=== PATIENT | male | born 1950 | race Caucasian/White ===

== ENCOUNTER 2021-05-27 07:04 | Inpatient (IN) ==
[2021-05-27] MEDS ORDERED: 0.9 % SODIUM CHLORIDE 1,000 ML IV ONE (07:13)
[2021-05-27] MEDS ORDERED: ONDANSETRON 4 MG ODT TABLET SL ONE (07:13)
--- NOTE | 2021-05-27 07:19 | Emergency Department Note ---
Fall HPI General Chief Complaint: Fall Stated Complaint: right hip pain Time Seen by Provider: 05/27/21 07:09 Source: patient, family ( @ BS), EMS, RN notes reviewed and old records reviewed Mode of arrival: EMS Limitations: no limitations History of Present Illness HPI Narrative: Narrative: 71-year-old male describes a mechanical trip and fall when he got up this morning falling onto his right side with right-sided hip pain unable to ambulate. Unable to bear weight came in via EMS patient denies preceding illness denies hitting his head denies any headache neck pain chest pain shortness of breath abdominal pain bowel or bladder changes loss of bowel or bladder control. MD Complaint: fall Onset (ago): hour(s) (1) Fall From: standing Fall Witnessed: yes, by family Place Fall Occurred: home Loss of Consciousness: none Prolonged Down Time?: no Symptoms Prior to Fall: none Context: tripped/slipped Location of injury: other (R Hip) Severity: severe Quality: aching Associated symptoms (after fall): Reports unable to walk; Denies headache, neck pain, numbness, weakness, chest pain, shortness of breath, abdominal pain, hematuria, lightheaded, vertigo or confusion Related Data Home Medications Medication Instructions Recorded Confirmed alendronate 70 mg tablet 70 mg PO QWEEK 12/07/17 05/27/21 cholecalciferol (vitamin D3) 50 2,000 unit PO BID cap 12/07/17 05/27/21 mcg (2,000 unit) capsule fenofibrate nanocrystallized 145 145 mg PO QDAY 12/07/17 05/27/21 mg tablet glucosamine HCl 750 mg tablet 750 mg PO BID 12/07/17 05/27/21 hydrochlorothiazide 25 mg tablet 25 mg PO QAM 12/07/17 05/27/21 lisinopril 10 mg tablet 10 mg PO QDAY 12/07/17 05/27/21 multivitamin 2 tab PO DAILY 12/07/17 05/27/21 omega-3 fatty acids [Fish Oil See Rx Instructions PO .COMPLEX 12/07/17 05/27/21 Concentrate] omeprazole 20 mg capsule,delayed 20 mg PO QDAY 12/07/17 05/27/21 release [] 40 mg PO QDAY 08/17/18 05/27/21 methotrexate sodium 2.5 mg tablet 20 mg PO QWEEK tab 06/28/19 05/27/21 tamsulosin 0.4 mg capsule 0.4 mg PO QHS 12/21/19 05/27/21 methocarbamol 750 mg tablet 750 mg PO Q8H PRN 10/17/20 05/27/21 metoprolol succinate 25 mg 12.5 mg PO QDAY 10/17/20 05/27/21 tablet,extended release 24 hr prasterone (dhea) 50 mg tablet 100 mg PO QDAY tab 10/17/20 05/27/21 naproxen 500 mg tablet 1,000 mg PO BID tab 02/27/21 05/27/21 leflunomide 20 mg tablet 20 mg PO QDAY 05/27/21 05/27/21 Previous Rx's Medication Instructions Recorded etanercept 50 mg/mL (1 mL) 50 mg SUB-Q QWEEK #3.92 ml 12/08/17 subcutaneous syringe (Enbrel) folic acid 1 mg tablet 1 mg PO QDAY #30 tab 10/12/18 Allergies Allergy/AdvReac Type Severity Reaction Status Date / Time capsaicin Allergy Unknown Unknown Verified 05/27/21 07:16 Review of Systems ROS ROS Narrative: Narrative: All systems ED: reviewed and negative except as stated. PFSH Narrative Patient History Narrative: Narrative: Medical/Surgical/Family History All Active Problems (Updated 05/27/21 @ 08:17 by Marques Davidson MD) Foot pain (Chronic) Metatarsal fracture (Chronic) Psoriatic arthritis (Acute) Psoriasis (Chronic) Joint pain (Chronic) Joint swelling (Chronic) Obesity (Chronic) Impacted cerumen of left ear (Chronic) Long-term use of high-risk medication (Acute) Osteopenia (Chronic) Nondisplaced fracture of fourth metatarsal bone of right foot with routine healing (Chronic) Nondisplaced fracture of third metatarsal bone of right foot with routine healing (Chronic) Stress fracture of right foot with delayed healing (Chronic) Nondisplaced fracture of fourth metatarsal bone, right foot, initial encounter for closed fracture (Chronic) Hypertension (Chronic) Weight loss (Chronic) Lichen simplex chronicus (Chronic) Obstructive sleep apnea (Chronic) Tinnitus (Chronic) Psoriasis with arthropathy (Acute) Polyarthralgia (Acute) Neck pain (Acute) Left shoulder pain (Acute) Elevated SGOT (AST) (Acute) Low back pain potentially associated with spinal stenosis (Chronic) Hip pain, bilateral (Acute) Osteoarthritis (Acute) Urinary hesitancy (Acute) History of recent surgery (Acute) Femur fracture, right (Acute) Medical History Elevated SGOT (AST) Hip pain, bilateral Hypertension Impacted cerumen of left ear Joint pain Joint swelling Left shoulder pain Lichen simplex chronicus Long-term use of high-risk medication Low back pain potentially associated with spinal stenosis Neck pain Nondisplaced fracture of fourth metatarsal bone of right foot with routine healing Nondisplaced fracture of fourth metatarsal bone, right foot, initial encounter for closed fracture Nondisplaced fracture of third metatarsal bone of right foot with routine healing Obesity Obstructive sleep apnea Osteoarthritis Osteopenia Polyarthralgia Psoriasis Psoriasis with arthropathy Psoriatic arthritis Stress fracture of right foot with delayed healing Tinnitus Urinary hesitancy Weight loss Surgical History History of appendectomy History of arthroscopy of knee right History of recent surgery History of surgery Screw right Fifth Metatarsal 2017 Hx of vasectomy Family History Other No pertinent family history Social History Smoking Status: Former smoker Alcohol Intake Frequency: 0-2 drinks per day Exam Narrative Narrative: Narrative: General Limitations: no limitations General appearance: Present alert and in no apparent distress Head Head: Present atraumatic and normocephalic Eye Eye: Present normal appearance, PERRL and EOMI ENT ENT: Present normal exam and mucous membranes moist Neck Neck: Present normal inspection and full ROM Chest Chest: Present normal inspection; Absent tenderness Respiratory Respiratory: Present normal lung sounds bilaterally; Absent respiratory distress Cardiovascular Cardiovascular: Present regular rate and normal rhythm; Absent systolic murmur Adbominal Abdominal: Present soft and normal bowel sounds; Absent distention, tenderness, guarding, rebound or rigidity Extremities Extremities: Present normal capillary refill and other (R Hip TTP & with movemen t, externally rotated.); Absent full ROM, tenderness, pedal edema or pretibial edema Back Back: Present normal inspection; Absent CVA tenderness (R) or CVA tenderness (L) Neurological Neurological: Present alert and oriented X3; Absent normal gait or motor sensory deficit Psychiatric Psychiatric: Present normal affect and normal mood Skin Skin: Present warm (WNL); Absent rash Course Vital Signs Vital signs: Vital Signs Temperature 99.3 F H 05/27/21 07:11 Pulse Rate 82 05/27/21 07:11 Respiratory Rate 16 05/27/21 07:11 Blood Pressure 129/75 05/27/21 07:11 Pulse Oximetry (%) 97 05/27/21 07:11 Temperature 99.3 F H 05/27/21 07:11 Pulse Rate 77 05/27/21 08:05 Respiratory Rate 16 05/27/21 07:11 Blood Pressure 91/56 05/27/21 08:05 Pulse Oximetry (%) 95 05/27/21 08:05 MDM MDM Narrative Medical decision making narrative: Narrative: 71-year-old male with proximal femur fracture patient has received IV fluids and pain relief patient has a proximal femur fracture on x-ray discussed with patient Dr. Jama of orthopedic surgery who graciously agreed to patient in the emergency department page is out to Dr. Agustin hospitalist for admission Differential Diagnosis Differential Diagnosis: Fx, Dislocation,sprain. Medical Records Medical records reviewed: Yes I reviewed the patient's medical records. Lab Data Lab results reviewed: Yes I reviewed the patient's lab results. Result diagrams: 05/27/21 07:23 05/27/21 07:23 Labs: Lab Results 05/27/21 05/27/21 05/27/21 Range/Units 07:23 07:23 07:23 WBC 9.0 (4.5-11.0) K/mcL RBC 4.55 L (4.63-6.08) M/mcL Hgb 13.3 L (13.7-17.5) g/dL Hct 40.9 (40.1-51.0) % MCV 89.9 (80.0-100.0) fL MCH 29.2 (26.0-34.0) pg MCHC 32.5 (31.0-36.0) g/dL RDW 16.0 H (11.5-14.5) % Plt Count 241 (140-440) K/mcL MPV 11.8 H (7.4-10.4) fL Neut % (Auto) 59.4 (38.0-78.0) % Lymph % (Auto) 23.9 (15.5-49.0) % [place] % (Auto) 13.1 H (1.0-12.0) % Eos % (Auto) 2.7 (0.0-7.0) % Baso % (Auto) 0.9 (0.0-2.0) % Lymph # (Auto) 2.15 (1.50-4.80) K/mcL [place] # (Auto) 1.18 H (0.10-0.90) K/mcL Eos # (Auto) 0.24 (0.00-0.70) K/mcL Baso # (Auto) 0.08 (0.00-0.30) K/mcL Absolute Neutrophils 5.34 (1.80-8.00) K/mcL PT 14.0 (11.9-14.5) sec INR 1.0 (0.9-1.1) Sodium 140 (133-145) mmol/L Potassium 4.2 (3.3-5.1) mmol/L Chloride 104 (96-108) mmol/L Carbon Dioxide 24 (22-30) mmol/L Anion Gap 12.0 (8.0-16.0) BUN 15 (8-23) mg/dL Creatinine 0.8 (0.7-1.2) mg/dL GFR Calculation 91 Glucose 105 (70-105) mg/dL Calcium 9.1 (8.6-10.4) mg/dL Total Bilirubin 0.5 (0.1-1.0) mg/dL AST 30 (<40) U/L ALT 23 (<40) U/L Alkaline Phosphatase 53 (39-117) U/L Total Protein 6.2 (5.9-8.4) gm/dL Albumin 3.8 (3.2-5.2) gm/dL Globulin 2.4 (2.2-3.7) gm/dL Albumin/Globulin Ratio 1.6 (1.0-2.3) ED POC Tests ED POC Tests: ZULMA - SARS Antigen Negative Radiology Data Radiology results reviewed: Yes I reviewed the patient's radiology results. Radiology results narrative: Chest x-ray NAD proximal femur fracture on hip x-ray EKG Data EKG #1: EKG attestation: Yes I reviewed and interpreted this EKG. EKG shows normal: sinus rhythm Rate: normal (78) Rhythm: NSR [place]/QRS: normal Heart block present: None ST segment elevation in: None ST segment depression in: None Q waves: None T wave inversions noted in: None Hyperacute T waves: None QTc: normal QRS morphology: Present normal Interpretation: normal EKG Pulse Oximetry Data Pulse Ox %: 95 Interpretation: 95 % WNL. Discharge Plan Patient/Caregiver Discharge Instructions Pt seen by PROGRAM REP/PA only: No Clinical Impression: Femur fracture, right Qualifiers: Encounter type: initial encounter Fracture type: closed Fracture morphology: spiral Fracture alignment: displaced Patient Disposition: Xfer As Inpt ([facility]) Condition: Fair Follow up with: Johanna Strong ARNP [Primary Care Provider] - Prescriptions: No Action alendronate 70 mg tablet 70 mg PO QWEEK 0RF omega-3 fatty acids See Rx Instructions PO .COMPLEX 0RF Label Comments: PO qday, 4 days a week Rx Instructions: PO qday, 4 days a week multivitamin 2 tab PO DAILY 0RF lisinopril 10 mg tablet 10 mg PO QDAY 0RF hydrochlorothiazide 25 mg tablet 25 mg PO QAM 0RF glucosamine HCl 750 mg tablet 750 mg PO BID 0RF cholecalciferol (vitamin D3) 2,000 unit capsule 2,000 unit PO BID 0RF fenofibrate nanocrystallized 145 mg tablet 145 mg PO QDAY 0RF omeprazole 20 mg capsule,delayed release(DR/EC) 20 mg PO QDAY 0RF naproxen 500 mg tablet 1,000 mg PO BID 0RF etanercept [Enbrel] 50 mg/mL (0.98 mL) syringe 50 mg SUB-Q QWEEK Qty: 3.92 0RF folic acid 1 mg tablet 1 mg PO QDAY Qty: 30 3RF methotrexate sodium 2.5 mg tablet 20 mg PO QWEEK 0RF tamsulosin 0.4 mg capsule 0.4 mg PO QHS 0RF metoprolol succinate 25 mg tablet extended release 24 hr 12.5 mg PO QDAY 0RF methocarbamol 750 mg tablet 750 mg PO Q8H PRN (Reason: Pain) 0RF prasterone (dhea) 50 mg tablet 100 mg PO QDAY 0RF atorvastatin 10 mg tablet 10 mg tablet 40 mg PO QDAY 0RF leflunomide 20 mg Tablet 20 mg PO QDAY 0RF
[2021-05-27] MEDS ORDERED: ONDANSETRON 4 MG/2 ML VIAL IV ONE (07:22)
[2021-05-27] MEDS: morphine 2 MG/ML VIAL IV PRN ×2 (07:23→08:01)
[2021-05-27] MEDS ORDERED: ONDANSETRON 4 MG/2 ML VIAL ONE ×2 (07:27→18:13)
[2021-05-27 07:53] LABS: Basophils # (Auto) 0.08 K/mcL (0.00-0.30); Basophils % (Auto) 0.9 % (0.0-2.0); Eosinophils # (Auto) 0.24 K/mcL (0.00-0.70); Eosinophils % (Auto) 2.7 % (0.0-7.0); Hematocrit 40.9 % (40.1-51.0); Hemoglobin 13.3 g/dL (13.7-17.5); Lymphocytes # (Auto) 2.15 K/mcL (1.50-4.80); Lymphocytes % (Auto) 23.9 % (15.5-49.0); Mean Cell Volume 89.9 fL (80.0-100.0); Mean Corpuscular HGB Conc 32.5 g/dL (31.0-36.0); Mean Platelet Volume 11.8 fL (7.4-10.4); Monocytes # (Auto) 1.18 K/mcL (0.10-0.90); Monocytes % (Auto) 13.1 % (1.0-12.0); Neutrophils % (Auto) 59.4 % (38.0-78.0); Platelet Count 241 K/mcL (140-440); RBC 4.55 M/mcL (4.63-6.08)
[2021-05-27 08:25] LABS: ALT/SGPT 23 U/L (<40); AST/SGOT 30 U/L (<40); Albumin 3.8 gm/dL (3.2-5.2); Albumin/Globulin Ratio 1.6 (1.0-2.3); Alkaline Phosphatase 53 U/L (39-117); Bilirubin,Total 0.5 mg/dL (0.1-1.0); Blood Urea Nitrogen 15 mg/dL (8-23); Calcium 9.1 mg/dL (8.6-10.4); Carbon Dioxide 24 mmol/L (22-30); Chloride 104 mmol/L (96-108); Globulin 2.4 gm/dL (2.2-3.7); Glomerular Filtration Rate 91; Glucose 105 mg/dL (70-105)
--- NOTE | 2021-05-27 08:52 | XRay Report ---
CLINICAL INFORMATION: FALL COMPARISON: 06/28/2019 plain films FINDINGS: Spiral fracture through the subtrochanteric region of the proximal femoral diaphysis appreciated. Distal fragment is displaced one shaft width medially. Minimal angulation deformity. Minimal degenerative change seen in both absence of chondrocalcinosis the femoral head cartilages. SI joints are normal. Calcific plaque present in the common femoral arteries IMPRESSION: Displaced spiral fracture of the subtrochanteric region of the proximal right femoral diaphysis. Interpreted and Authenticated by: Willard Beth 05/27/21
--- NOTE | 2021-05-27 08:55 | XRay Report ---
CLINICAL INFORMATION: Trauma-fall COMPARISON: 10/17/2020 TECHNIQUE: Portable FINDINGS: The heart size, mediastinum and pulmonary vessels are unremarkable. The lungs are clear. There are no effusions. The bones and soft tissues are within normal limits. IMPRESSION: Normal chest. Interpreted and Authenticated by: Willard Beth 05/27/21
[2021-05-27] MEDS: HYDROmorphone 0.5 MG/0.5 ML SYRINGE IV PRN ×4 (09:26→15:17)
--- NOTE | 2021-05-27 12:07 | Internal Med History&Physical ---
HPI History of Present Illness Patient information: Note initiated : 05/27/21 at 12:05 pm Service Date, if different from initiated Date: [] Patient: Mal Fiore a 71 y/o M admitted on for Rt Hip Pain. Chief Complaint: [] History of present illness: Mr. Fiore is a 71 year old M Patient with a history of right hip osteoarthritis in the process of getting a hip replacement. Got up to go the bathroom had pain in the leg buckled fell on his right hip with the result fracture. Dr. Jama contacted. Review of Systems: Positives as above. Denies headache/fever/chills/nausea/vomiting/chest or abdominal pain/cough/dyspnea/diarrhea. Remaining 10 point review of system reviewed negative PFSH PFSH All Active Problems (Updated 05/27/21 @ 08:17 by Marques Davidson MD) Foot pain (Chronic) Metatarsal fracture (Chronic) Psoriatic arthritis (Acute) Psoriasis (Chronic) Joint pain (Chronic) Joint swelling (Chronic) Obesity (Chronic) Impacted cerumen of left ear (Chronic) Long-term use of high-risk medication (Acute) Osteopenia (Chronic) Nondisplaced fracture of fourth metatarsal bone of right foot with routine healing (Chronic) Nondisplaced fracture of third metatarsal bone of right foot with routine healing (Chronic) Stress fracture of right foot with delayed healing (Chronic) Nondisplaced fracture of fourth metatarsal bone, right foot, initial encounter for closed fracture (Chronic) Hypertension (Chronic) Weight loss (Chronic) Lichen simplex chronicus (Chronic) Obstructive sleep apnea (Chronic) Tinnitus (Chronic) Psoriasis with arthropathy (Acute) Polyarthralgia (Acute) Neck pain (Acute) Left shoulder pain (Acute) Elevated SGOT (AST) (Acute) Low back pain potentially associated with spinal stenosis (Chronic) Hip pain, bilateral (Acute) Osteoarthritis (Acute) Urinary hesitancy (Acute) History of recent surgery (Acute) Femur fracture, right (Acute) Medical History Elevated SGOT (AST) Hip pain, bilateral Hypertension Impacted cerumen of left ear Joint pain Joint swelling Left shoulder pain Lichen simplex chronicus Long-term use of high-risk medication Low back pain potentially associated with spinal stenosis Neck pain Nondisplaced fracture of fourth metatarsal bone of right foot with routine healing Nondisplaced fracture of fourth metatarsal bone, right foot, initial encounter for closed fracture Nondisplaced fracture of third metatarsal bone of right foot with routine healing Obesity Obstructive sleep apnea Osteoarthritis Osteopenia Polyarthralgia Psoriasis Psoriasis with arthropathy Psoriatic arthritis Stress fracture of right foot with delayed healing Tinnitus Urinary hesitancy Weight loss Surgical History History of appendectomy History of arthroscopy of knee right History of recent surgery History of surgery Screw right Fifth Metatarsal 2017 Hx of vasectomy Family History Other No pertinent family history Social History marital status: occupational status: retired alcohol intake frequency: 0-2 drinks per day MEDS/ALLERGIES Home Medications and Allergies Home Medications Medication Instructions Recorded Confirmed Type alendronate 70 mg tablet 70 mg PO QWEEK 12/07/17 05/27/21 History cholecalciferol (vitamin D3) 50 2,000 unit PO BID cap 12/07/17 05/27/21 History mcg (2,000 unit) capsule fenofibrate nanocrystallized 145 145 mg PO QDAY 12/07/17 05/27/21 History mg tablet glucosamine HCl 750 mg tablet 750 mg PO BID 12/07/17 05/27/21 History hydrochlorothiazide 25 mg tablet 25 mg PO QAM 12/07/17 05/27/21 History lisinopril 10 mg tablet 10 mg PO QDAY 12/07/17 05/27/21 History multivitamin 2 tab PO DAILY 12/07/17 05/27/21 History omega-3 fatty acids [Fish Oil See Rx Instructions PO .COMPLEX 12/07/17 05/27/21 History Concentrate] omeprazole 20 mg capsule,delayed 20 mg PO QDAY 12/07/17 05/27/21 History release etanercept 50 mg/mL (1 mL) 50 mg SUB-Q QWEEK #3.92 ml 12/08/17 05/27/21 Rx subcutaneous syringe (Enbrel) [] 40 mg PO QDAY 08/17/18 05/27/21 History folic acid 1 mg tablet 1 mg PO QDAY #30 tab 10/12/18 05/27/21 Rx methotrexate sodium 2.5 mg tablet 20 mg PO QWEEK tab 06/28/19 05/27/21 History tamsulosin 0.4 mg capsule 0.4 mg PO QHS 12/21/19 05/27/21 History methocarbamol 750 mg tablet 750 mg PO Q8H PRN 10/17/20 05/27/21 History metoprolol succinate 25 mg 12.5 mg PO QDAY 10/17/20 05/27/21 History tablet,extended release 24 hr prasterone (dhea) 50 mg tablet 100 mg PO QDAY tab 10/17/20 05/27/21 History naproxen 500 mg tablet 1,000 mg PO BID tab 02/27/21 05/27/21 History leflunomide 20 mg tablet 20 mg PO QDAY 05/27/21 05/27/21 History Allergies Allergy/AdvReac Type Severity Reaction Status Date / Time capsaicin Allergy Unknown Unknown Verified 05/27/21 07:16 EXAM Constitutional Vitals: Temp Pulse Resp BP Pulse Ox 99.3 F H 76 16 110/65 96 05/27/21 07:11 05/27/21 11:47 05/27/21 07:11 05/27/21 11:46 05/27/21 11:47 Exam: General: Alert, Awake, No acute Distress, obese Eyes/N/T: EOMI, PERRL, Head/Neck: neck supple, normocephalic atraumatic CV: RRR, No murmurs, normal s1/s2 Pulm: Clear b/l, no wheezing/rhonchi/rales Abd: soft, nontender, +BS x4 Ext: no clubbing/cyanosis/edema Neuro: Alert, no focal deficits, moves all extremities, CN 2-12 grossly intact, sensations intact b/l upper/lower Skin: warm/dry DATA Data Completed and Pending Labs: Labs from last 24 hours 05/27/21 05/27/21 05/27/21 07:23 07:23 07:23 WBC 9.0 RBC 4.55 L Hgb 13.3 L Hct 40.9 MCV 89.9 MCH 29.2 MCHC 32.5 RDW 16.0 H Plt Count 241 MPV 11.8 H Neut % (Auto) 59.4 Lymph % (Auto) 23.9 [place] % (Auto) 13.1 H Eos % (Auto) 2.7 Baso % (Auto) 0.9 Lymph # (Auto) 2.15 [place] # (Auto) 1.18 H Eos # (Auto) 0.24 Baso # (Auto) 0.08 Absolute Neutrophils 5.34 PT 14.0 INR 1.0 Sodium 140 Potassium 4.2 Chloride 104 Carbon Dioxide 24 Anion Gap 12.0 BUN 15 Creatinine 0.8 GFR Calculation 91 Glucose 105 Calcium 9.1 Total Bilirubin 0.5 AST 30 ALT 23 Alkaline Phosphatase 53 Total Protein 6.2 Albumin 3.8 Globulin 2.4 Albumin/Globulin Ratio 1.6 A/P Narrative A/P Narrative: A: *Right hip fracture: *Psoriatic arthritis: On etanercept/methotrexate *HTN: On HCTZ/BB/ACEI *GERD: *Obesity: * P: -Dr. Jama for surgery -Continue home medications -PT/OT -assistant real estate manager for placement needs -ppx: Postop per Ortho full code Time Spent With Patient Time: Total time spent is greater than 50% in coordination of care (as documented) at patient's floor/unit and/or counseling patient:
[2021-05-27] MEDS ORDERED: ACETAMINOPHEN 325 MG TABLET PO PRN (14:27)
[2021-05-27] MEDS ORDERED: morphine 4 MG/ML VIAL IV PRN (14:27)
[2021-05-27] MEDS ORDERED: HYDROcodone/APAP 5/325MG TABLET PO PRN (14:27)
[2021-05-27] MEDS ORDERED: MAGNESIUM SULFATE 2 GM/50 ML BAG IV PRN (14:27)
[2021-05-27] MEDS ORDERED: SENNOSIDES 1 TABLET PO PRN (14:27)
[2021-05-27] MEDS ORDERED: ONDANSETRON 4 MG/2 ML VIAL IV PRN ×2 (14:27→20:31)
[2021-05-27] MEDS ORDERED: POLYETHYLENE GLYCOL 3350 17 GM PACKET PO PRN ×2 (14:27→20:13)
[2021-05-27] MEDS ORDERED: IPRATROPIUM/ALBUTEROL 3 ML AMPUL.NEB NEB PRN ×2 (14:27→20:31)
[2021-05-27] MEDS ORDERED: POTASSIUM CHLORIDE 20 MEQ TABLET PO PRN ×2 (14:27)
[2021-05-27] MEDS ORDERED: POTASSIUM CHLORIDE 40 MEQ in DEXTROSE 5% IN WATER 500 ML IV PRN (14:27)
[2021-05-27] MEDS ORDERED: METHOCARBAMOL 750 MG TABLET PO PRN (14:27)
[2021-05-27] MEDS: 0.9 % SODIUM CHLORIDE 10 ML SYRINGE IV SCH (15:19)
--- NOTE | 2021-05-27 17:06 | Consultation ---
DATE OF CONSULTATION: 05/27/2021 INDICATIONS: This is a 71-year-old male. CHIEF COMPLAINT: Right proximal femur fracture. HISTORY OF PRESENT ILLNESS: The patient has had some ongoing hip pain secondary to arthrosis. He has had pain, which resulted in his leg buckling. He sustained a fall, had immediate pain and was unable to bear weight. He presented to the emergency room and radiographs demonstrated rupture of his subtrochanteric region. We are now called for further evaluation and management. PAST MEDICAL HISTORY: His past medical history is significant for polyarthralgia secondary to psoriatic arthritis. He has chronic hip pain with early arthrosis. He has hypertension. PAST SURGICAL HISTORY: His past surgical history is significant for a previous knee arthroscopy, appendectomy and foot fracture. MEDICATIONS: 1. Fosamax. 2. Vitamin D. 3. Glucosamine. 4. Hydrochlorothiazide/lisinopril. 5. Folic acid. 6. Methotrexate. 7. Metoprolol. ALLERGIES: CAPSAICIN. REVIEW OF SYSTEMS: He has generally been healthy without any acute changes in past medical history. PHYSICAL EXAMINATION: GENERAL: He is awake and alert. He is resting comfortably. HEAD: Normocephalic, atraumatic. EYES: PERRLA. Conjunctivae clear. ENT: Within normal limits. NECK: Supple without pain on range of motion. HEART: Regular. LUNGS: Clear. ABDOMEN: Benign. EXTREMITIES: His right lower extremity was carefully positioned. It is somewhat shortened. He does have marked pain with any range of motion. He seems to be grossly without neurovascular deficit. IMAGING: His radiographs demonstrate a displaced femur fracture. This is a subtrochanteric fracture of the femur. IMPRESSION: Subtrochanteric femur fracture. PLAN: We will proceed with an intramedullary rodding. The procedure, the surgical risks, complications, and limitations were discussed. The patient understands these well and wished to proceed. GDD:cee Job ID: [id number] Doc ID: [id number] Ted Jama MD
[2021-05-27] MEDS ORDERED: ceFAZolin 2 GM in DEXTROSE 5% IN WATER 50 ML IV SCH ×2 (17:45→20:15)
[2021-05-27] MEDS ORDERED: TRANEXAMIC ACID 1,000 MG/10 ML VIAL ONE ×2 (18:13→20:37)
[2021-05-27] MEDS ORDERED: fentaNYL 100 MCG/2 ML VIAL IV ONE (18:13)
[2021-05-27] MEDS ORDERED: GLYCOPYRROLATE 0.2 MG/ML VIAL IV ONE (18:13)
[2021-05-27] MEDS ORDERED: PROPOFOL 200 MG/20 ML VIAL IV ONE (18:13)
[2021-05-27] MEDS ORDERED: MAGNESIUM SULFATE 2 GM/50 ML BAG IV ONE (18:13)
[2021-05-27] MEDS ORDERED: DEXAMETHASONE 10 MG/ML VIAL ONE (18:13)
[2021-05-27] MEDS ORDERED: MIDAZOLAM 2 MG/2 ML VIAL ONE (18:13)
[2021-05-27] MEDS ORDERED: LIDOCAINE HCL/PF 100 MG/5 ML SYRINGE IV ONE (18:13)
[2021-05-27] MEDS ORDERED: KETAMINE 50 MG/ML Syringe (ANEST) IV ONE (18:13)
[2021-05-27] MEDS ORDERED: BISACODYL 10 MG SUPP.RECT PR PRN (20:13)
[2021-05-27] MEDS ORDERED: FLEETS ADULT ENEMA PR PRN (20:13)
[2021-05-27] MEDS ORDERED: BENZOCAINE/MENTHOL 1 LOZENGE PO PRN ×2 (20:13→20:31)
[2021-05-27] MEDS ORDERED: MAGNESIUM HYDROXIDE 30 ML ORAL.SUSP PO PRN (20:13)
--- NOTE | 2021-05-27 20:18 | Brief Operative Note ---
Brief Operative Note Date of procedure: 05/27/21 Pre-op diagnosis: R hip fracture Procedure: recon michelle alexandra Grafts/Implants: Yes Anesthesia: GETA Complications: none Surgeon: Ted Jama Orchard Pruner: Marv Oh Estimated blood loss (cc): 300 Specimens Removed/Pathology: none sent Condition: stable Disposition: PACU
[2021-05-27] MEDS ORDERED: TRANEXAMIC ACID 1,000 MG/10 ML VIAL IV ONE (20:30)
[2021-05-27] MEDS ORDERED: MEPERIDINE 25 MG/ML VIAL IV PRN (20:31)
[2021-05-27] MEDS ORDERED: LABETALOL 5 MG/ML ML IV PRN (20:31)
[2021-05-27] MEDS ORDERED: HYDROmorphone 0.5 MG/0.5 ML SYRINGE IV PRN (20:31)
[2021-05-27] MEDS ORDERED: METHOCARBAMOL 1,000 MG/10 ML VIAL IV PRN (20:31)
[2021-05-27] MEDS ORDERED: ePHEDrine 50 MG/ML AMPUL IV PRN (20:31)
[2021-05-27] MEDS ORDERED: ACETAMINOPHEN 1,000 MG/100 ML BAG IV ONE (20:31)
[2021-05-27] MEDS ORDERED: LACTATED RINGERS 1,000 ML IV SCH (20:45)
[2021-05-27] MEDS: fentaNYL 100 MCG/2 ML VIAL IV PRN ×2 (20:57→21:00)
[2021-05-27] MEDS ORDERED: ASPIRIN 325 MG ENTERIC COATED TABLET PO SCH (21:00)
[2021-05-27] MEDS ORDERED: DOCUSATE SODIUM 100 MG CAPSULE PO SCH (21:00)
[2021-05-27] MEDS ORDERED: METHOTREXATE SODIUM 2.5 MG TABLET PO SCH (21:00)
[2021-05-27] MEDS: SENNOSIDES 1 TABLET PO SCH (23:45)
[2021-05-27] MEDS: DOCUSATE SODIUM 100 MG CAPSULE PO SCH (23:46)
[2021-05-27] MEDS: TAMSULOSIN 0.4 MG CAPSULE PO SCH (23:47)
[2021-05-27] MEDS: ENOXAPARIN 30 MG/0.3 ML SYRINGE SQ SCH (23:47)
[2021-05-27] MEDS: LACTATED RINGERS 1,000 ML IV SCH ×2 (23:54→23:55)
--- NOTE | 2021-05-28 01:22 | XRay Report ---
CLINICAL INFORMATION: post op femur fx COMPARISON: Preoperative films 05/27/2021 FINDINGS: Oblique subtrochanteric fracture of the proximal femoral diaphysis is been reduced to anatomic alignment transfixed by IM michelle and screws. Severe patellofemoral and tibiofemoral degeneration noted. Right hip unremarkable. Soft tissues over the surgical site seen. IMPRESSION: ORIF oblique subtrochanteric fracture right femoral diaphysis has anatomic alignment. 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
--- NOTE | 2021-05-28 01:29 | XRay Report ---
CLINICAL INFORMATION: hip pinning COMPARISON: None. FINDINGS: Digital images were obtained during fluoroscopy in the OR. Total fluoroscopy time 2.3 minutes. Images show oblique subtrochanteric fracture the proximal femur reduced to anatomic alignment and transfixed by a michelle and screws. Severe tibiofemoral degeneration noted. IMPRESSION: ORIF subtrochanteric fracture proximal right femur. Anatomic alignment Interpreted and Authenticated by: Willard Beth 05/28/21
[2021-05-28] MEDS: 0.9 % SODIUM CHLORIDE 10 ML SYRINGE IV SCH ×4 (01:41→22:27)
[2021-05-28] MEDS: ceFAZolin 1 GM VIAL IV SCH ×2 (02:27→09:08)
[2021-05-28] MEDS: HYDROmorphone 0.5 MG/0.5 ML SYRINGE IV PRN (05:56)
--- NOTE | 2021-05-28 07:05 | Orthopedic Progress Note ---
SUBJECTIVE Subjective Patient information: Note initiated : 05/28/21 at 7:01 am Service Date, if different from initiated Date: [] Patient: Mal Fiore 71 y/o M admitted on 05/27/21 for Rt Hip Pain. Chief Complaint: [S/P ORIF OF RIGHT HIP FX] PATIENT IS DOING WELL AND PAIN IS WELL CONTROLLED. NO PARTICULAR COMPLAINTS. HE DENIES ANY LOWER EXTREMITY CALF TENDERNESS, SOA, CHEST PAIN. Principal diagnosis: RT HIP FX Constitutional Vitals: Vital Signs Temp Pulse Resp BP Pulse Ox 97.0 F 81 20 124/73 93 05/28/21 03:00 05/28/21 03:00 05/28/21 03:00 05/28/21 03:00 05/28/21 03:00 Period Temp Pulse Resp BP Sys/Ayala Pulse Ox Last 24 Hr 96.0 F-99.3 F 69-95 11- 85-160/42-96 83-97 Intake and Output 05/27/21 05/28/21 05/28/21 21:59 05:59 13:59 Intake Total 1850 600 Output Total 525 1050 Balance 1325 -450 Weight 260 lb 272 lb 11.2 oz Intake & Output: Intake & Output 05/27/21 05/28/21 05/28/21 21:59 05:59 13:59 Intake Total 1850 600 Output Total 525 1050 Balance 1325 -450 Weight 260 lb 272 lb 11.2 oz Intake: IV 150 Ancef 2 gm In Dextrose 5% in 50 Water 50 ml @ 100 mls/hr IV PREOP ALEJANDRA Rx#:[id number] Oral 600 IV - Manual Only 1700 Output: Void Amount 225 1050 Estimated Blood Loss 300 Other: Meal jello Percent of Meal Consumed 100% Feeding Ability Independent Urine Appearance Clear Urine Color Bright Yellow Bright Yellow Urine Odor Normal General appearance: cooperative and no acute distress Extremities Exam Extremities exam: Present calf tenderness (NEGATIVE BILATERALLY), full ROM (DIAZ ITED RLE), Emile's sign (NEGATIVE BILATERALLY) and neurovascular intact Neurological Exam Neurological exam: Present alert and oriented X3 Psychiatric Psychiatric exam: Present normal affect and normal mood OBJ DATA Labs CBC & Chem 7: 05/27/21 07:23 05/27/21 07:23 Labs: Abnormal Lab Results 05/27/21 07:23 RBC 4.55 L Hgb 13.3 L RDW 16.0 H MPV 11.8 H Pershing % (Auto) 13.1 H Pershing # (Auto) 1.18 H Meds: Medications Acetaminophen (Acetaminophen 325 Mg Tablet) 650 mg PO Q6HP PRN; Protocol PRN Reason: Per Pain Protocol/Fever > 101 Hydrocodone Bitart/Acetaminophen (Hydrocodone/Apap 5/325mg Tablet) 1 tab PO Q4HP PRN PRN Reason: PAIN LEVEL 3-6 Albuterol/Ipratropium (Ipratropium/Albuterol 3 Ml Ampul.Neb) 3 ml NEB Q4HP PRN PRN Reason: Shortness Of Breath Aspirin (Aspirin 325 Mg Enteric Coated Tablet) 325 mg PO BID [facility] Last Admin: 05/27/21 23:47 Dose: 325 mg Documented by: Atorvastatin Calcium (Atorvastatin 40 Mg Tablet) 40 mg PO DAILY [facility] Bisacodyl (Bisacodyl 10 Mg Supp.Rect) 10 mg CO Q2-3DAYS PRN PRN Reason: Constipation Cefazolin Sodium (Cefazolin 1 Gm Vial) 2 gm IV Q8H [facility] Stop: 05/28/21 08:01 Last Admin: 05/28/21 02:27 Dose: 2 gm Documented by: Docusate Sodium (Docusate Sodium 100 Mg Capsule) 100 mg PO BID [facility] Last Admin: 05/27/21 23:46 Dose: 100 mg Documented by: Enoxaparin Sodium (Enoxaparin 30 Mg/0.3 Ml Syringe) 30 mg SQ BID [facility] Last Admin: 05/27/21 23:47 Dose: 30 mg Documented by: Fenofibrate (Fenofibrate 43 Mg Capsule) 129 mg PO DAILY [facility] Folic Acid (Folic Acid 1 Mg Tablet) 1 mg PO QDAY [facility] Hydrochlorothiazide (Hydrochlorothiazide 25 Mg Tablet) 25 mg PO QAM [facility] Hydromorphone HCl (Hydromorphone 0.5 Mg/0.5 Ml Syringe) 0.25 - 0.5 mg IV Q2HP PRN; Protocol PRN Reason: Per Pain Protocol Last Admin: 05/28/21 05:56 Dose: 0.25 mg Documented by: Potassium Chloride 40 meq/ (Dextrose) 520 mls @ 130 mls/hr IV UD PRN PRN Reason: Potassium < 3 Magnesium Sulfate (Magnesium Sulfate) 2 gm in 50 mls @ 50 mls/hr IV UD PRN PRN Reason: Magnesium </= 1.6 Leflunomide (Leflunomide 20 Mg Tablet) 20 mg PO DAILY [facility] Lisinopril (Lisinopril 10 Mg Tablet) 10 mg PO QDAY [facility] Magnesium Hydroxide (Magnesium Hydroxide 30 Ml Oral.Susp) 30 ml PO BIDP PRN PRN Reason: Constipation Methocarbamol (Methocarbamol 750 Mg Tablet) 750 mg PO Q6HP PRN PRN Reason: Muscle Spasm Methotrexate (Methotrexate Sodium 2.5 Mg Tablet) 20 mg PO Mo@2100 [facility] Last Admin: 05/27/21 23:49 Dose: 20 mg Documented by: Metoprolol Succinate (Metoprolol Succinate 25 Mg Tab.Xl.24h) 12.5 mg PO QDAY [facility] Omeprazole (Omeprazole 20 Mg Capsule) 20 mg PO ACB [facility] Ondansetron HCl (Ondansetron 4 Mg/2 Ml Vial) 4 mg IV Q4HP PRN PRN Reason: Nausea And Vomiting Oxycodone/Acetaminophen (Oxycodone/Apap 5/325mg Tablet) 0 tab PO Q4HP PRN; Protocol PRN Reason: Per Pain Protocol Polyethylene Glycol (Polyethylene Glycol 3350 17 Gm Packet) 17 gm PO DAILYP PRN PRN Reason: Constipation Polyethylene Glycol (Polyethylene Glycol 3350 17 Gm Packet) 17 gm PO DAILYP PRN PRN Reason: Constipation Potassium Chloride (Potassium Chloride 20 Meq Tablet) 40 meq PO UD PRN PRN Reason: Potssium is 3-3.5 Potassium Chloride (Potassium Chloride 20 Meq Tablet) 40 meq PO UD PRN PRN Reason: Potassium < 3 Senna (Sennosides 1 Tablet) 2 tab PO HS [facility] Last Admin: 05/27/21 23:45 Dose: 2 tab Documented by: Sodium Biphosphate/Sodium Phosphate (Fleets Adult Enema) 1 dose CO Q3-4DAYS PRN PRN Reason: Constipation Sodium Chloride (0.9 % Sodium Chloride 10 Ml Syringe) 10 ml IV Q8 [facility] Last Admin: 05/28/21 06:48 Dose: 10 ml Documented by: Tamsulosin HCl (Tamsulosin 0.4 Mg Capsule) 0.4 mg PO QHS [facility] Last Admin: 05/27/21 23:47 Dose: 0.4 mg Documented by: Throat Lozenges (Benzocaine/Menthol 1 Lozenge) 1 lozenge PO PRN PRN PRN Reason: Sore Throat A/P Assessment and plan (1) Femur fracture, right: Assessment and plan: AMBULATE WITH PT TODAY. TTWB ON RLE. CASE MANAGEMENT CONSULT TO DISCUSS DISCHARGE TO SNF VS HOME IN 1-2 DAYS. WILL F/U WITH [facility] IN 2 WEEKS. SILVER DRESSING OKAY PRIOR TO DISCHARGE. Status: Acute Qualifiers: Encounter type: initial encounter Fracture alignment: displaced Fracture morphology: spiral Fracture type: closed Time Spent With Patient Time: Total time spent is greater than 50% in coordination of care (as documented) at patient's floor/unit and/or counseling patient:
[2021-05-28 07:14] LABS: Hematocrit 37.1 % (40.1-51.0); Hemoglobin 12.3 g/dL (13.7-17.5)
--- NOTE | 2021-05-28 07:52 | Operative Note ---
DATE OF OPERATION: 05/27/2021 PREOPERATIVE DIAGNOSIS: Subtrochanteric femur fracture. POSTOPERATIVE DIAGNOSIS: Subtrochanteric femur fracture. OPERATION PROPOSED: Open reduction and internal fixation of right subtrochanteric femoral shaft fracture. OPERATION PERFORMED: Open reduction and internal fixation of right subtrochanteric femoral shaft fracture. SURGEON: Ted Jama M.D. SERIALS LIBRARIAN: Marv Oh PA-C. This providers expertise and technical skill were required throughout the case. The PA assisted with preoperative coordination, intraoperative retraction, wound closure, and dressing and splint application, as well as postoperative documentation and care coordination. INDICATIONS: This is an elderly gentleman who has a displaced subtrochanteric femur fracture, in need of operative stabilization. OPERATION IN DETAIL: Informed consent was obtained. The patient was taken to the operating room, was provided with appropriate anesthetic and prophylactic antibiotics. He was carefully positioned. An incision was made proximal to the greater trochanter and advanced down through a very robust layer of subcutaneous fat, exposing the fascia overlying the gluteal musculature. I opened the fascia and then spread down to expose the tip of the greater trochanter, which was palpable within my finger. I then entered the tip of the trochanter with a 3.2 mm guidewire, which was advanced into the femoral shaft. The fracture was markedly displaced by deforming forces of the psoas musculature. I then opened the fracture through a lateral incision. I was able to get a Hohmann clamp around the fracture. A very adequate reduction was obtained. I then advanced the guidewire. I entered the canal with an opening reamer. A long guidewire was passed. I sequentially reamed to a 13.5. A 12 x 400 mm intramedullary michelle was applied. Proximal recon screws were placed up into the femoral neck and head x2 and the distal interlocking screw was applied. Wounds were irrigated extensively. I closed with an 0 Vicryl in interrupted fashion, 2-0 Vicryl inverted deep dermal and abiodun. The procedure was tolerated well. COMPLICATIONS: None. ESTIMATED BLOOD LOSS: 300 mL. GDD:shira Job ID: [id number] Doc ID: [id number] Ted Jama MD
--- NOTE | 2021-05-28 08:15 | Internal Med Progress Note ---
SUBJECTIVE Subjective Patient information: Note initiated : 05/28/21 at 8:13 am Service Date, if different from initiated Date: [] Patient: Mal Fiore 71 y/o M admitted on 05/27/21 for Rt Hip Pain. Chief Complaint: [] Principal diagnosis: RT HIP FX Interval history: History of present illness: Mr. Fiore is a 71 year old M Patient with a history of right hip osteoarthritis in the process of getting a hip replacement. Got up to go the bathroom had pain in the leg buckled fell on his right hip with the result fracture. Dr. Jama contacted. 05/28 Doing well. No overnight event or new complaints. Status post ORIF yesterday. Review of Systems: denies headache/fever/chills/nausea/vomiting/chest or abdominal pain/cough/dyspnea/diarrhea. Otherwise see above. Constitutional Vitals: Vital Signs Temp Pulse Resp BP Pulse Ox 97.0 F 81 20 124/73 93 05/28/21 03:00 05/28/21 03:00 05/28/21 03:00 05/28/21 03:00 05/28/21 03:00 Period Temp Pulse Resp BP Sys/Ayala Pulse Ox Last 24 Hr 96.0 F-99.1 F 69-95 11-28 85-160/42-96 83-97 Intake and Output 05/27/21 05/28/21 05/28/21 21:59 05:59 13:59 Intake Total 1850 600 Output Total 525 1050 Balance 1325 -450 Weight 117.934 kg 123.695 kg Intake & Output: Intake & Output 05/27/21 05/28/21 05/28/21 21:59 05:59 13:59 Intake Total 1850 600 Output Total 525 1050 Balance 1325 -450 Weight 117.934 kg 123.695 kg Intake: IV 150 Ancef 2 gm In Dextrose 5% in 50 Water 50 ml @ 100 mls/hr IV PREOP ALEJANDRA Rx#:[id number] Oral 600 IV - Manual Only 1700 Output: Void Amount 225 1050 Estimated Blood Loss 300 Other: Meal jello Percent of Meal Consumed 100% Feeding Ability Independent Urine Appearance Clear Urine Color Bright Yellow Bright Yellow Urine Odor Normal Exam: General: Alert, Awake, No acute Distress, obese Eyes/N/T: EOMI, Head/Neck: neck supple, CV: RRR, No murmurs, Pulm: Clear b/l, no wheezing/rhonchi/rales Abd: soft, nontender, +BS x4 Ext: no clubbing/cyanosis/edema Neuro: Alert, no focal deficits, moves all extremities, Skin: warm/dry OBJ DATA Labs CBC & Chem 7: 05/28/21 05:10 05/27/21 07:23 Labs: Abnormal Lab Results 05/28/21 05/27/21 05:10 07:23 RBC 4.55 L Hgb 12.3 L 13.3 L Hct 37.1 L RDW 16.0 H MPV 11.8 H [place] % (Auto) 13.1 H [place] # (Auto) 1.18 H Meds: Medications Acetaminophen (Acetaminophen 325 Mg Tablet) 650 mg PO Q6HP PRN; Protocol PRN Reason: Per Pain Protocol/Fever > 101 Albuterol/Ipratropium (Ipratropium/Albuterol 3 Ml Ampul.Neb) 3 ml NEB Q4HP PRN PRN Reason: Shortness Of Breath Atorvastatin Calcium (Atorvastatin 40 Mg Tablet) 40 mg PO DAILY [facility] Bisacodyl (Bisacodyl 10 Mg Supp.Rect) 10 mg CO Q2-3DAYS PRN PRN Reason: Constipation Docusate Sodium (Docusate Sodium 100 Mg Capsule) 100 mg PO BID [facility] Last Admin: 05/27/21 23:46 Dose: 100 mg Documented by: Enoxaparin Sodium (Enoxaparin 30 Mg/0.3 Ml Syringe) 30 mg SQ BID [facility] Last Admin: 05/27/21 23:47 Dose: 30 mg Documented by: Fenofibrate (Fenofibrate 43 Mg Capsule) 129 mg PO DAILY [facility] Folic Acid (Folic Acid 1 Mg Tablet) 1 mg PO QDAY [facility] Hydrochlorothiazide (Hydrochlorothiazide 25 Mg Tablet) 25 mg PO QAM [facility] Hydromorphone HCl (Hydromorphone 0.5 Mg/0.5 Ml Syringe) 0.25 - 0.5 mg IV Q2HP PRN; Protocol PRN Reason: Per Pain Protocol Last Admin: 05/28/21 05:56 Dose: 0.25 mg Documented by: Potassium Chloride 40 meq/ (Dextrose) 520 mls @ 130 mls/hr IV UD PRN PRN Reason: Potassium < 3 Magnesium Sulfate (Magnesium Sulfate) 2 gm in 50 mls @ 50 mls/hr IV UD PRN PRN Reason: Magnesium </= 1.6 Leflunomide (Leflunomide 20 Mg Tablet) 20 mg PO DAILY [facility] Lisinopril (Lisinopril 10 Mg Tablet) 10 mg PO QDAY [facility] Magnesium Hydroxide (Magnesium Hydroxide 30 Ml Oral.Susp) 30 ml PO BIDP PRN PRN Reason: Constipation Methocarbamol (Methocarbamol 750 Mg Tablet) 750 mg PO Q6HP PRN PRN Reason: Muscle Spasm Methotrexate (Methotrexate Sodium 2.5 Mg Tablet) 20 mg PO Mo@2100 [facility] Last Admin: 05/27/21 23:49 Dose: 20 mg Documented by: Metoprolol Succinate (Metoprolol Succinate 25 Mg Tab.Xl.24h) 12.5 mg PO QDAY [facility] Omeprazole (Omeprazole 20 Mg Capsule) 20 mg PO ACB [facility] Ondansetron HCl (Ondansetron 4 Mg/2 Ml Vial) 4 mg IV Q4HP PRN PRN Reason: Nausea And Vomiting Oxycodone/Acetaminophen (Oxycodone/Apap 5/325mg Tablet) 0 tab PO Q4HP PRN; Protocol PRN Reason: Per Pain Protocol Polyethylene Glycol (Polyethylene Glycol 3350 17 Gm Packet) 17 gm PO DAILYP PRN PRN Reason: Constipation Potassium Chloride (Potassium Chloride 20 Meq Tablet) 40 meq PO UD PRN PRN Reason: Potssium is 3-3.5 Potassium Chloride (Potassium Chloride 20 Meq Tablet) 40 meq PO UD PRN PRN Reason: Potassium < 3 Senna (Sennosides 1 Tablet) 2 tab PO HS [facility] Last Admin: 05/27/21 23:45 Dose: 2 tab Documented by: Sodium Biphosphate/Sodium Phosphate (Fleets Adult Enema) 1 dose CO Q3-4DAYS PRN PRN Reason: Constipation Sodium Chloride (0.9 % Sodium Chloride 10 Ml Syringe) 10 ml IV Q8 [facility] Last Admin: 05/28/21 06:48 Dose: 10 ml Documented by: Tamsulosin HCl (Tamsulosin 0.4 Mg Capsule) 0.4 mg PO QHS [facility] Last Admin: 05/27/21 23:47 Dose: 0.4 mg Documented by: Throat Lozenges (Benzocaine/Menthol 1 Lozenge) 1 lozenge PO PRN PRN PRN Reason: Sore Throat A/P Narrative A/P Narrative: A: *Right hip fracture: s/p ORIF (05/27) *Psoriatic arthritis: On etanercept/methotrexate *HTN: On HCTZ/BB/ACEI *GERD: *Obesity: P: -Dr. Jama for surgery -Continue home medications -PT/OT -instrumentation manager for placement needs -ppx: Postop per Ortho lovenox full code Time Spent With Patient Time: Total time spent is greater than 50% in coordination of care (as documented) at patient's floor/unit and/or counseling patient: QUALITY VTE Deep Vein Thrombosis/Pulmonary Embolism Present on Admission: No
[2021-05-28 08:21] LABS: INR 1.1 (0.9-1.1); Prothrombin Time 15.2 sec (11.9-14.5)
[2021-05-28] MEDS ORDERED: PRASTERONE 50 MG PO SCH (09:00)
[2021-05-28] MEDS: FENOFIBRATE 43 MG CAPSULE PO SCH (10:20)
--- NOTE | 2021-05-28 10:20 | Discharge Summary ---
Discharge Provider Provider Patient information: Note initiated : 05/28/21 at 10:18 am Service Date, if different from initiated Date: [] Patient: Mal Fiore 71 y/o M admitted on 05/27/21 for Rt Hip Pain. Chief Complaint: [] Date of admission: 05/27/21 14:05 Discharge date: 05/30/21 Primary care physician: Johanna Strong Consults: 05/27/21 Consult to Physician [CONS] Stat Comment: Consulting Provider: Ted Jama Reason For Exam: Physician to Consult Consult to Physician [CONS] Stat Comment: Consulting Provider: Jayden Agustin Reason For Exam: Physician to Consult Discharge Meds Discharge Medications Home Medications alendronate 70 mg tablet 70 mg PO QWEEK 12/07/17 [History Confirmed 05/27/21 Last Taken 05/25/21 06:00] cholecalciferol (vitamin D3) 50 mcg (2,000 unit) capsule 2,000 unit PO DAILY cap 12/07/17 [History Confirmed 05/27/21 Last Taken 05/26/21 08:00] fenofibrate nanocrystallized 145 mg tablet 145 mg PO QDAY 12/07/17 [History Confirmed 05/27/21 Last Taken 05/26/21 18:00] glucosamine HCl 750 mg tablet 750 mg PO BID 12/07/17 [History Confirmed 05/27/21 Last Taken 05/26/21 18:00] hydrochlorothiazide 25 mg tablet 25 mg PO QAM 12/07/17 [History Confirmed 05/27/21 Last Taken 05/26/21 09:00] lisinopril 10 mg tablet 10 mg PO QDAY 12/07/17 [History Confirmed 05/27/21 Last Taken 05/26/21 09:00] multivitamin 2 tab PO DAILY 12/07/17 [History Confirmed 05/27/21 Last Taken 05/26/21 09:00] omega-3 fatty acids [Fish Oil Concentrate] See Rx Instructions PO .COMPLEX 12/07/17 [History Confirmed 05/27/21 Last Taken 05/26/21 18:00] omeprazole 20 mg capsule,delayed release 20 mg PO QDAY 12/07/17 [History Confirmed 05/27/21 Last Taken 05/26/21 09:00] etanercept 50 mg/mL (1 mL) subcutaneous syringe (Enbrel) 50 mg SUB-Q QWEEK #3.92 ml 12/08/17 [Rx Confirmed 05/27/21 Last Taken 05/19/21] [] 40 mg PO QDAY 08/17/18 [History Confirmed 05/27/21 Last Taken 05/26/21 09:00] folic acid 1 mg tablet 1 mg PO QDAY #30 tab 10/12/18 [Rx Confirmed 05/27/21 Last Taken 05/26/21 09:00] methotrexate sodium 2.5 mg tablet 20 mg PO QWEEK tab 06/28/19 [History Confirmed 05/27/21 Last Taken 05/19/21] tamsulosin 0.4 mg capsule 0.4 mg PO QHS 12/21/19 [History Confirmed 05/27/21 Last Taken 05/26/21 18:00] methocarbamol 750 mg tablet 750 mg PO Q8H PRN 10/17/20 [History Confirmed 05/27/21 Last Taken 05/26/21 18:00] metoprolol succinate 25 mg tablet,extended release 24 hr 12.5 mg PO QDAY 10/17/20 [History Confirmed 05/27/21 Last Taken 05/26/21 09:00] prasterone (dhea) 50 mg tablet 100 mg PO QDAY tab 10/17/20 [History Confirmed 05/27/21 Last Taken 05/26/21 09:00] naproxen 500 mg tablet 1,000 mg PO BID tab 02/27/21 [History Confirmed 05/27/21 Last Taken 05/26/21 06:00] amoxicillin 875 mg-potassium clavulanate 125 mg tablet 1 tab PO BID 05/27/21 [History Confirmed 05/27/21 Last Taken 05/26/21 18:00] leflunomide 20 mg tablet 20 mg PO QDAY 05/27/21 [History Confirmed 05/27/21 Last Taken 05/26/21 09:00] aspirin 325 mg tablet 325 mg PO BID #60 tab 05/29/21 [Rx Last Taken Unknown] methocarbamol 750 mg tablet 750 mg PO Q8H PRN #40 tab 05/29/21 [Rx Last Taken Unknown] oxycodone-acetaminophen 5 mg-325 mg tablet (Percocet) 1 - 2 tab PO Q4-6HP PRN #50 tab 05/29/21 [Rx Last Taken Unknown] COURSE Hospital Course Hospital course: History of present illness: Mr. Fiore is a 71 year old M Patient with a history of right hip osteoarthritis in the process of getting a hip replacement. Got up to go the bathroom had pain in the leg buckled fell on his right hip with the result fracture. Dr. Jama contacted. 05/28 Doing well. No overnight event or new complaints. Status post ORIF yesterday. 05/29 No changes overnight. No new complaints. Awaiting placement. 05/30 No overnight event or complaint. Awaiting placement. A: *Right hip fracture: s/p ORIF (05/27) *Psoriatic arthritis: On etanercept/methotrexate *HTN: On HCTZ/BB/ACEI *GERD: *Obesity: Discharge diagnosis: Right hip fracture Secondary discharge diagnosis: Psoriatic arthritis hypertension GERD obesity Time Spent with Patient Time attestation: Total time spent providing and/or coordinating discharge services: Time spent: Greater than 30 minutes EXAM Constitutional Vitals: Temp Pulse Resp BP Pulse Ox 98.1 F 80 20 115/70 95 05/28/21 08:00 05/28/21 08:00 05/28/21 08:00 05/28/21 08:00 05/28/21 08:00 Discharge Data Data Completed and Pending Labs on day of discharge: Labs from last 24 hours 05/28/21 05/28/21 05:10 05:10 Hgb 12.3 L Hct 37.1 L PT 15.2 H INR 1.1 Discharge Plan Patient/Caregiver Discharge Instructions Activity: ambulate only with your walker Diet: Regular Diet Instructions: ORIF of Hip Fracture (DC) Activity Restrictions/Additional Instructions: TTWB only on RLE. Discharge Instructions: You have the silver dressing, leave in place for 7-14 days then remove. You may shower with dressing on, pat dry after shower. To avoid constipation while taking any narcotic pain medication, take an over the counter stool softener/laxative. Use your ice packs as directed. Ice and elevation will help with pain and swelling. If you have any questions or concerns call your orthopedic surgeon before going to the emergency room. [facility] has a business control manager physician 24 hours per day/7 days per week and can be reached at [phone]. Call for fevers above 100.5 or pain not controlled by medication. Your prescriptions are with your discharge information. Some medications were electronically transmitted to your pharmacy of choice. Take Aspirin as prescribed to prevent blood clots (see medication list). This discharge packet is provided to you to help keep you informed about your care. We want to ensure you get everything you need when you go home. You will also be receiving a call from us in a few days to follow up with you and see how you are doing since your discharge. This gives us a chance to listen to any concerns you maybe experiencing since you were discharged or any additional needs you may have, as well as providing us feedback on your care experience. We strive to always provide excellent care and thank you for your feedback and for choosing [facility]. Prescriptions: New methocarbamol 750 mg Tablet 750 mg PO Q8H PRN (Reason: Muscle Spasm) Qty: 40 0RF aspirin 325 mg Tablet 325 mg PO BID Qty: 60 0RF oxycodone-acetaminophen [Percocet] 5-325 mg Tablet 1 - 2 tab PO Q4-6HP PRN (Reason: Pain) Qty: 50 0RF Continued alendronate 70 mg tablet 70 mg PO QWEEK 0RF omega-3 fatty acids See Rx Instructions PO .COMPLEX 0RF Label Comments: PO qday, 4 days a week Rx Instructions: PO qday, 4 days a week multivitamin 2 tab PO DAILY 0RF lisinopril 10 mg tablet 10 mg PO QDAY 0RF hydrochlorothiazide 25 mg tablet 25 mg PO QAM 0RF glucosamine HCl 750 mg tablet 750 mg PO BID 0RF cholecalciferol (vitamin D3) 2,000 unit capsule 2,000 unit PO DAILY 0RF fenofibrate nanocrystallized 145 mg tablet 145 mg PO QDAY 0RF omeprazole 20 mg capsule,delayed release(DR/EC) 20 mg PO QDAY 0RF naproxen 500 mg tablet 1,000 mg PO BID 0RF etanercept [Enbrel] 50 mg/mL (0.98 mL) syringe 50 mg SUB-Q QWEEK Qty: 3.92 0RF folic acid 1 mg tablet 1 mg PO QDAY Qty: 30 3RF methotrexate sodium 2.5 mg tablet 20 mg PO QWEEK 0RF tamsulosin 0.4 mg capsule 0.4 mg PO QHS 0RF metoprolol succinate 25 mg tablet extended release 24 hr 12.5 mg PO QDAY 0RF methocarbamol 750 mg tablet 750 mg PO Q8H PRN (Reason: Pain) 0RF prasterone (dhea) 50 mg tablet 100 mg PO QDAY 0RF atorvastatin 10 mg tablet 10 mg tablet 40 mg PO QDAY 0RF leflunomide 20 mg Tablet 20 mg PO QDAY 0RF amoxicillin-pot clavulanate 875-125 mg Tablet 1 tab PO BID 0RF Other Ambulatory Orders: OT Discharge Order (Routine) Location: None Selected Ordered By: Jayden Agustin Physical Therapy at Discharge - [facility] (Routine) Location: None Selected Ordered By: Jayden Agustin Follow Up Plan Follow up with: Marv Oh PA-C [Physician Grain Elevator Motor Starter] - (Please call and schedule a surgical follow up to be seen 10-14 days post surgery.) Johanna Strong ARNP [Primary Care Provider] - (Please call and schedule a hospital follow up.) Patient Disposition: [facility] Hospital Course: The patient retrurned to the [facility] and provided routine pain management and provided routine abx. Anticoagulation therapy was performed. At the time of discharge, he is doing well and tolerating all medications well. He is discharged to f/u with id in 2 weeks. Prognosis: Fair Rehab Potential: Fair I certify that the patient requires SNF services: Yes Overall status at discharge: patient is progressing back to baseline Discharge Orders: Discharge Order (Routine); Ordered 05/29/21 Ordered By: Marv Oh QUALITY VTE Deep Vein Thrombosis/Pulmonary Embolism Present on Admission: No
[2021-05-28] MEDS: oxyCODONE/APAP 5/325MG TABLET PO PRN ×2 (10:21→20:58)
[2021-05-28] MEDS: ATORVASTATIN 40 MG TABLET PO SCH (10:22)
[2021-05-28] MEDS: METHOCARBAMOL 750 MG TABLET PO PRN (10:22)
[2021-05-28] MEDS: LISINOPRIL 10 MG TABLET PO SCH (10:22)
[2021-05-28] MEDS: FOLIC ACID 1 MG TABLET PO SCH (10:22)
[2021-05-28] MEDS: HYDROCHLOROTHIAZIDE 25 MG TABLET PO SCH (10:22)
[2021-05-28] MEDS: OMEPRAZOLE 20 MG CAPSULE PO SCH (10:22)
[2021-05-28] MEDS: ENOXAPARIN 30 MG/0.3 ML SYRINGE SQ SCH ×2 (10:23→20:57)
[2021-05-28] MEDS: DOCUSATE SODIUM 100 MG CAPSULE PO SCH ×2 (10:23→20:58)
[2021-05-28] MEDS: METOPROLOL SUCCINATE 25 MG TAB.XL.24H PO SCH (10:23)
[2021-05-28] MEDS: LEFLUNOMIDE 20 MG TABLET PO SCH (10:24)
[2021-05-28] MEDS: LACTATED RINGERS 1,000 ML IV SCH (11:11)
[2021-05-28] MEDS: TAMSULOSIN 0.4 MG CAPSULE PO SCH (21:01)
[2021-05-28] MEDS: SENNOSIDES 1 TABLET PO SCH (21:01)
[2021-05-29] MEDS: 0.9 % SODIUM CHLORIDE 10 ML SYRINGE IV SCH (06:38)
[2021-05-29] MEDS: oxyCODONE/APAP 5/325MG TABLET PO PRN ×4 (06:42→21:11)
--- NOTE | 2021-05-29 07:07 | Discharge Summary ---
Discharge Provider Provider Patient information: Note initiated : 05/29/21 at 6:59 am Service Date, if different from initiated Date: [] Patient: Mal Fiore 71 y/o M admitted on 05/27/21 for Rt Hip Pain. Chief Complaint: [S/p ORIF of right proximal femur fx] Patient is overall doing well and tolerating PT well. He does require assistance with ambulation. He denies any lower extremity calf tenderness, SOA, or chest pain. Date of admission: 05/27/21 14:05 Discharge date: 05/30/21 Primary care physician: Johanna Strong Admitting clinician: Ted Jama Consults: 05/27/21 Consult to Physician [CONS] Stat Comment: Consulting Provider: Ted Jama Reason For Exam: Physician to Consult Consult to Physician [CONS] Stat Comment: Consulting Provider: Jayden Agustin Reason For Exam: Physician to Consult COURSE Hospital Course Hospital course: The patient was transferred to the [facility] and provided routine pain management and maintained on prophylactic abx. He was provided anticoagulation. At the time of discharge, he is doing well and tolerating all medications well. He is discharged to f/u with ma in 2 weeks. He will call with any questions or concerns whatsoever. Discharge diagnosis: S/p ORIF of right proximal femur Reason for admission: Right subtrochanteric hip fx Procedures: ORIF of right subtrochanteric proximal femur fx using intramedullary nail Complications: None Time Spent with Patient Time attestation: Total time spent providing and/or coordinating discharge services: Physical Examination Exam Incision healing: Yes Incision draining: No Incision red: No Incision swollen: No Incision inflamed: No Clean and dry: Yes Weight bearing status: partial (TTWB on RLE) Range of motion: Limited RLE as expected post-op DC Instructions-General Patient Instructions Dressing Care: May shower in 2 days and Aquacel Ag - leave on for 5 days Discharge Plan Patient/Caregiver Discharge Instructions Activity: ambulate only with your walker Diet: Regular Diet Activity Restrictions/Additional Instructions: TTWB only on RLE. Prescriptions: Continued alendronate 70 mg tablet 70 mg PO QWEEK 0RF omega-3 fatty acids See Rx Instructions PO .COMPLEX 0RF Label Comments: PO qday, 4 days a week Rx Instructions: PO qday, 4 days a week multivitamin 2 tab PO DAILY 0RF lisinopril 10 mg tablet 10 mg PO QDAY 0RF hydrochlorothiazide 25 mg tablet 25 mg PO QAM 0RF glucosamine HCl 750 mg tablet 750 mg PO BID 0RF cholecalciferol (vitamin D3) 2,000 unit capsule 2,000 unit PO DAILY 0RF fenofibrate nanocrystallized 145 mg tablet 145 mg PO QDAY 0RF omeprazole 20 mg capsule,delayed release(DR/EC) 20 mg PO QDAY 0RF naproxen 500 mg tablet 1,000 mg PO BID 0RF etanercept [Enbrel] 50 mg/mL (0.98 mL) syringe 50 mg SUB-Q QWEEK Qty: 3.92 0RF folic acid 1 mg tablet 1 mg PO QDAY Qty: 30 3RF methotrexate sodium 2.5 mg tablet 20 mg PO QWEEK 0RF tamsulosin 0.4 mg capsule 0.4 mg PO QHS 0RF metoprolol succinate 25 mg tablet extended release 24 hr 12.5 mg PO QDAY 0RF methocarbamol 750 mg tablet 750 mg PO Q8H PRN (Reason: Pain) 0RF prasterone (dhea) 50 mg tablet 100 mg PO QDAY 0RF atorvastatin 10 mg tablet 10 mg tablet 40 mg PO QDAY 0RF leflunomide 20 mg Tablet 20 mg PO QDAY 0RF amoxicillin-pot clavulanate 875-125 mg Tablet 1 tab PO BID 0RF Follow Up Plan Follow up with: Ted Jama MD [Physician] - Marv Oh PA-C [Physician Station Jailer] - Johanna Strong ARNP [Primary Care Provider] - Patient Disposition: Xfer SNF Hospital Course: The patient retrurned to the [facility] and provided routine pain management and provided routine abx. Anticoagulation therapy was performed. At the time of discharge, he is doing well and tolerating all medications well. He is discharged to f/u with ma in 2 weeks. Prognosis: Fair Rehab Potential: Fair I certify that the patient requires SNF services: Yes Overall status at discharge: patient is progressing back to baseline Discharge Orders: Discharge Order (Routine); Ordered 05/29/21 Ordered By: Marv Oh Pending Pending Pending: Resuscitation Status Resuscitate (Full Code) Diet Regular Diet Start WedMay 28 811 Atorvastatin Calcium (Atorvastatin 40 Mg Tablet) 40 mg PO DAILY ALEJANDRA Last Admin: 05/28/21 10:22 Dose: 40 mg Documented by: LAUREL Docusate Sodium (Docusate Sodium 100 Mg Capsule) 100 mg PO BID [facility] Last Admin: 05/28/21 20:58 Dose: 100 mg Documented by: Admin: 05/28/21 10:23 Dose: 100 mg Documented by: Admin: 05/27/21 23:46 Dose: 100 mg Documented by: RUDI Enoxaparin Sodium (Enoxaparin 30 Mg/0.3 Ml Syringe) 30 mg SQ BID [facility] Last Admin: 05/28/21 20:57 Dose: 30 mg Documented by: Admin: 05/28/21 10:23 Dose: 30 mg Documented by: Admin: 05/27/21 23:47 Dose: 30 mg Documented by: RUDI Fenofibrate (Fenofibrate 43 Mg Capsule) 129 mg PO DAILY [facility] Last Admin: 05/28/21 10:20 Dose: 129 mg Documented by: LAUREL Folic Acid (Folic Acid 1 Mg Tablet) 1 mg PO QDAY [facility] Last Admin: 05/28/21 10:22 Dose: 1 mg Documented by: LAUREL Hydrochlorothiazide (Hydrochlorothiazide 25 Mg Tablet) 25 mg PO QAM [facility] Last Admin: 05/28/21 10:22 Dose: 25 mg Documented by: LAUREL Hydromorphone HCl (Hydromorphone 0.5 Mg/0.5 Ml Syringe) 0.25 - 0.5 mg IV Q2HP PRN; Protocol PRN Reason: Per Pain Protocol Last Admin: 05/28/21 05:56 Dose: 0.25 mg Documented by: Admin: 05/27/21 15:17 Dose: 0.5 mg Documented by: [email or web address] Leflunomide (Leflunomide 20 Mg Tablet) 20 mg PO DAILY [facility] Last Admin: 05/28/21 10:24 Dose: 20 mg Documented by: LAUREL Lisinopril (Lisinopril 10 Mg Tablet) 10 mg PO QDAY [facility] Last Admin: 05/28/21 10:22 Dose: 10 mg Documented by: LAUREL Methocarbamol (Methocarbamol 750 Mg Tablet) 750 mg PO Q6HP PRN PRN Reason: Muscle Spasm Last Admin: 05/28/21 10:22 Dose: 750 mg Documented by: LAUREL Methotrexate (Methotrexate Sodium 2.5 Mg Tablet) 20 mg PO Mo@2100 [facility] Last Admin: 05/27/21 23:49 Dose: 20 mg Documented by: RUDI Metoprolol Succinate (Metoprolol Succinate 25 Mg Tab.Xl.24h) 12.5 mg PO QDAY [facility] Last Admin: 05/28/21 10:23 Dose: 12.5 mg Documented by: LAUREL Omeprazole (Omeprazole 20 Mg Capsule) 20 mg PO ACB [facility] Last Admin: 05/28/21 10:22 Dose: 20 mg Documented by: LAUREL Oxycodone/Acetaminophen (Oxycodone/Apap 5/325mg Tablet) 0 tab PO Q4HP PRN; Protocol PRN Reason: Per Pain Protocol Last Admin: 05/29/21 06:42 Dose: 2 tab Documented by: [email or web address] Admin: 05/28/21 20:58 Dose: 1 tab Documented by: Admin: 05/28/21 10:21 Dose: 2 tab Documented by: LAUREL Senna (Sennosides 1 Tablet) 2 tab PO HS [facility] Last Admin: 05/28/21 21:01 Dose: 2 tab Documented by: Admin: 05/27/21 23:45 Dose: 2 tab Documented by: RUDI Tamsulosin HCl (Tamsulosin 0.4 Mg Capsule) 0.4 mg PO QHS [facility] Last Admin: 05/28/21 21:01 Dose: 0.4 mg Documented by: Admin: 05/27/21 23:47 Dose: 0.4 mg Documented by: RUDI Shift Summary 05/28/21 05:17 Shift Summary by Ryanne Lujan Primary Diagnosis: R Hip fx Registration Status: Inpatient Day of Hospitalization: 05/27 Date of Surgery (if applicable): 05/27 Pertinent Medical Dx/Issues (may be more than one): HTN, Obesity, Psoriactic arthritis, Urinary hesitancy, sleep apnea Interventions (O2, wounds, diuresis, etc): CPAP on 2L at night or while asleep but on RA otherwise Vital Signs with Trends: VSS on CPAP Meds (abo, pain, BP, etc): Ancef, [place], Lovenox, Flomax Lines/Tubes: LFA SL since tolerating PO meds. Oxygen needs (home use vs. current use):CPAP on 2L at night or while asleep but on RA otherwise Lab/Rad results: Date of last BM: Elimination: Voided via urinal with a total of 500mls Recommendations/questions for MD (JACK Reynoso? JACK LEMUS? PICC needed?): Vent/Bipap/Cpap: CPAP on 2L at night or while asleep Trends (is the patient improving?): Activity: Stayed in bed on this shift Expected date of discharge: TBD Discharge Plan (needs, disposition, etc): TBD Initialized on 05/28/21 05:17 - END OF NOTE
[2021-05-29 07:19] LABS: Hematocrit 33.5 % (40.1-51.0); Hemoglobin 10.8 g/dL (13.7-17.5)
[2021-05-29] MEDS: OMEPRAZOLE 20 MG CAPSULE PO SCH (07:24)
[2021-05-29 07:42] LABS: INR 1.1 (0.9-1.1); Prothrombin Time 14.4 sec (11.9-14.5)
--- NOTE | 2021-05-29 08:13 | Internal Med Progress Note ---
SUBJECTIVE Subjective Patient information: Note initiated : 05/29/21 at 8:12 am Service Date, if different from initiated Date: [] Patient: Mal Fiore a 71 y/o M admitted on 05/27/21 for Rt Hip Pain. Chief Complaint: [] Principal diagnosis: RT HIP FX Interval history: History of present illness: Mr. Fiore is a 71 year old M Patient with a history of right hip osteoarthritis in the process of getting a hip replacement. Got up to go the bathroom had pain in the leg buckled fell on his right hip with the result fracture. Dr. Jama contacted. 05/28 Doing well. No overnight event or new complaints. Status post ORIF yesterday. 05/29 No changes overnight. No new complaints. Awaiting placement. Review of Systems: denies headache/fever/chills/nausea/vomiting/chest or abdominal pain/cough/dyspnea/diarrhea. Otherwise see above. Constitutional Vitals: Vital Signs Temp Pulse Resp BP Pulse Ox 96.9 F L 77 20 132/75 94 05/29/21 03:12 05/29/21 03:12 05/29/21 03:12 05/29/21 03:12 05/29/21 03:12 Period Temp Pulse Resp BP Sys/Ayala Pulse Ox Last 24 Hr 96.9 F-99.1 F 75-87 20-22 117-133/62-75 94-96 Intake and Output 05/28/21 05/29/21 05/29/21 21:59 05:59 13:59 Intake Total 1100 250 Output Total 1000 475 650 Balance 100 -225 -650 Weight 121.2 kg Intake & Output: Intake & Output 05/28/21 05/29/21 05/29/21 21:59 05:59 13:59 Intake Total 1100 250 Output Total 1000 475 650 Balance 100 -225 -650 Weight 121.2 kg Intake: Oral 1100 250 Output: Void Amount 1000 475 650 Other: Meal Lunch Percent of Meal Consumed 100% Feeding Ability Independent Urine Appearance Clear Clear Clear Urine Color Bright Yellow Bright Yellow Bright Yellow Urine Odor Normal Normal Exam: General: Alert, Awake, No acute Distress, obese Eyes/N/T: EOMI, Head/Neck: neck supple, CV: RRR, No murmurs, Pulm: Clear b/l, no wheezing/rhonchi/rales Abd: soft, nontender, +BS x4 Ext: no clubbing/cyanosis/edema Neuro: Alert, no focal deficits, moves all extremities, Skin: warm/dry OBJ DATA Labs CBC & Chem 7: 05/29/21 05:12 05/27/21 07:23 Labs: Abnormal Lab Results 05/29/21 05/28/21 05/28/21 05:12 05:10 05:10 RBC Hgb 10.8 L 12.3 L Hct 33.5 L 37.1 L RDW MPV [place] % (Auto) [place] # (Auto) PT 15.2 H 05/27/21 07:23 RBC 4.55 L Hgb 13.3 L Hct RDW 16.0 H MPV 11.8 H [place] % (Auto) 13.1 H [place] # (Auto) 1.18 H PT Meds: Medications Acetaminophen (Acetaminophen 325 Mg Tablet) 650 mg PO Q6HP PRN; Protocol PRN Reason: Per Pain Protocol/Fever > 101 Albuterol/Ipratropium (Ipratropium/Albuterol 3 Ml Ampul.Neb) 3 ml NEB Q4HP PRN PRN Reason: Shortness Of Breath Atorvastatin Calcium (Atorvastatin 40 Mg Tablet) 40 mg PO DAILY [facility] Last Admin: 05/28/21 10:22 Dose: 40 mg Documented by: Bisacodyl (Bisacodyl 10 Mg Supp.Rect) 10 mg [place] Q2-3DAYS PRN PRN Reason: Constipation Docusate Sodium (Docusate Sodium 100 Mg Capsule) 100 mg PO BID [facility] Last Admin: 05/28/21 20:58 Dose: 100 mg Documented by: Enoxaparin Sodium (Enoxaparin 30 Mg/0.3 Ml Syringe) 30 mg SQ BID [facility] Last Admin: 05/28/21 20:57 Dose: 30 mg Documented by: Fenofibrate (Fenofibrate 43 Mg Capsule) 129 mg PO DAILY [facility] Last Admin: 05/28/21 10:20 Dose: 129 mg Documented by: Folic Acid (Folic Acid 1 Mg Tablet) 1 mg PO QDAY [facility] Last Admin: 05/28/21 10:22 Dose: 1 mg Documented by: Hydrochlorothiazide (Hydrochlorothiazide 25 Mg Tablet) 25 mg PO QAM [facility] Last Admin: 05/28/21 10:22 Dose: 25 mg Documented by: Hydromorphone HCl (Hydromorphone 0.5 Mg/0.5 Ml Syringe) 0.25 - 0.5 mg IV Q2HP PRN; Protocol PRN Reason: Per Pain Protocol Last Admin: 05/28/21 05:56 Dose: 0.25 mg Documented by: Potassium Chloride 40 meq/ (Dextrose) 520 mls @ 130 mls/hr IV UD PRN PRN Reason: Potassium < 3 Magnesium Sulfate (Magnesium Sulfate) 2 gm in 50 mls @ 50 mls/hr IV UD PRN PRN Reason: Magnesium </= 1.6 Leflunomide (Leflunomide 20 Mg Tablet) 20 mg PO DAILY [facility] Last Admin: 05/28/21 10:24 Dose: 20 mg Documented by: Lisinopril (Lisinopril 10 Mg Tablet) 10 mg PO QDAY [facility] Last Admin: 05/28/21 10:22 Dose: 10 mg Documented by: Magnesium Hydroxide (Magnesium Hydroxide 30 Ml Oral.Susp) 30 ml PO BIDP PRN PRN Reason: Constipation Methocarbamol (Methocarbamol 750 Mg Tablet) 750 mg PO Q6HP PRN PRN Reason: Muscle Spasm Last Admin: 05/28/21 10:22 Dose: 750 mg Documented by: Methotrexate (Methotrexate Sodium 2.5 Mg Tablet) 20 mg PO Mo@2100 [facility] Last Admin: 05/27/21 23:49 Dose: 20 mg Documented by: Metoprolol Succinate (Metoprolol Succinate 25 Mg Tab.Xl.24h) 12.5 mg PO QDAY [facility] Last Admin: 05/28/21 10:23 Dose: 12.5 mg Documented by: Omeprazole (Omeprazole 20 Mg Capsule) 20 mg PO ACB [facility] Last Admin: 05/29/21 07:24 Dose: 20 mg Documented by: Ondansetron HCl (Ondansetron 4 Mg/2 Ml Vial) 4 mg IV Q4HP PRN PRN Reason: Nausea And Vomiting Oxycodone/Acetaminophen (Oxycodone/Apap 5/325mg Tablet) 0 tab PO Q4HP PRN; Protocol PRN Reason: Per Pain Protocol Last Admin: 05/29/21 06:42 Dose: 2 tab Documented by: Polyethylene Glycol (Polyethylene Glycol 3350 17 Gm Packet) 17 gm PO DAILYP PRN PRN Reason: Constipation Potassium Chloride (Potassium Chloride 20 Meq Tablet) 40 meq PO UD PRN PRN Reason: Potssium is 3-3.5 Potassium Chloride (Potassium Chloride 20 Meq Tablet) 40 meq PO UD PRN PRN Reason: Potassium < 3 Senna (Sennosides 1 Tablet) 2 tab PO [facility] Last Admin: 05/28/21 21:01 Dose: 2 tab Documented by: Sodium Biphosphate/Sodium Phosphate (Fleets Adult Enema) 1 dose [place] Q3-4DAYS PRN PRN Reason: Constipation Tamsulosin HCl (Tamsulosin 0.4 Mg Capsule) 0.4 mg PO QHS [facility] Last Admin: 05/28/21 21:01 Dose: 0.4 mg Documented by: Throat Lozenges (Benzocaine/Menthol 1 Lozenge) 1 lozenge PO PRN PRN PRN Reason: Sore Throat A/P Narrative A/P Narrative: A: *Right hip fracture: s/p ORIF (05/27) *Psoriatic arthritis: On etanercept/methotrexate *HTN: On HCTZ/BB/ACEI *GERD: *Obesity: P: -Dr. Jama for surgery -Continue home medications -PT/OT -collections manager for placement needs -ppx: Postop per Ortho lovenox full code Time Spent With Patient Time: Total time spent is greater than 50% in coordination of care (as documented) at patient's floor/unit and/or counseling patient: QUALITY VTE Deep Vein Thrombosis/Pulmonary Embolism Present on Admission: No
[2021-05-29] MEDS: ENOXAPARIN 30 MG/0.3 ML SYRINGE SQ SCH ×2 (09:11→21:11)
[2021-05-29] MEDS: METOPROLOL SUCCINATE 25 MG TAB.XL.24H PO SCH (09:11)
[2021-05-29] MEDS: ATORVASTATIN 40 MG TABLET PO SCH (09:11)
[2021-05-29] MEDS: FOLIC ACID 1 MG TABLET PO SCH (09:12)
[2021-05-29] MEDS: FENOFIBRATE 43 MG CAPSULE PO SCH (09:12)
[2021-05-29] MEDS: LISINOPRIL 10 MG TABLET PO SCH (09:12)
[2021-05-29] MEDS: METHOCARBAMOL 750 MG TABLET PO PRN (09:12)
[2021-05-29] MEDS: DOCUSATE SODIUM 100 MG CAPSULE PO SCH ×2 (09:12→21:11)
[2021-05-29] MEDS: LEFLUNOMIDE 20 MG TABLET PO SCH (09:12)
[2021-05-29] MEDS: HYDROCHLOROTHIAZIDE 25 MG TABLET PO SCH (09:12)
[2021-05-29] MEDS: SENNOSIDES 1 TABLET PO SCH (21:11)
[2021-05-29] MEDS: TAMSULOSIN 0.4 MG CAPSULE PO SCH (21:11)
[2021-05-30] MEDS: oxyCODONE/APAP 5/325MG TABLET PO PRN (04:29)
[2021-05-30] MEDS: OMEPRAZOLE 20 MG CAPSULE PO SCH (07:06)
[2021-05-30 07:08] LABS: Hematocrit 31.7 % (40.1-51.0); Hemoglobin 10.6 g/dL (13.7-17.5)
[2021-05-30 07:25] LABS: INR 1.1 (0.9-1.1); Prothrombin Time 14.7 sec (11.9-14.5)
[2021-05-30] MEDS: FOLIC ACID 1 MG TABLET PO SCH (08:15)
[2021-05-30] MEDS: METOPROLOL SUCCINATE 25 MG TAB.XL.24H PO SCH (08:26)
[2021-05-30] MEDS: HYDROCHLOROTHIAZIDE 25 MG TABLET PO SCH (08:26)
[2021-05-30] MEDS: FENOFIBRATE 43 MG CAPSULE PO SCH (08:26)
[2021-05-30] MEDS: DOCUSATE SODIUM 100 MG CAPSULE PO SCH (08:26)
[2021-05-30] MEDS: LEFLUNOMIDE 20 MG TABLET PO SCH (08:27)
[2021-05-30] MEDS: ATORVASTATIN 40 MG TABLET PO SCH (08:27)
[2021-05-30] MEDS: LISINOPRIL 10 MG TABLET PO SCH (08:27)
[2021-05-30] MEDS: ENOXAPARIN 30 MG/0.3 ML SYRINGE SQ SCH (08:27)
--- NOTE | 2021-05-30 09:40 | EKG ---
[facility] Test Date: 2021-05-27 Pat Name: Mal Fiore Department: ED Room: Gender: Male Wood Polisher: : 1950 Requested By: Marques Davidson Order Number: [id number] Reading MD: Willard Griffith M.D. Measurements Intervals [place] Rate: 78 P: -12 MI: 152 QRS: 46 QRSD: 86 T: 33 QT: 368 QTc: 420 Interpretive Statements SINUS RHYTHM Electronically Signed On 05-30-2021 9:40:33 PST by Willard Griffith M.D. /store/[email or web address]/[id number]
== END 2021-05-30 13:08 | DRG 481 ==
LOC: ED 07:04 → MEDSUR 14:05
PROVIDERS: ADMIT Internal Medicine; ATTEND Internal Medicine

== ENCOUNTER 2021-11-10 07:30 | Inpatient (IN) ==
[2021-11-03 11:50] LABS: Basophils # (Auto) 0.07 K/mcL (0.00-0.30); Basophils % (Auto) 1.1 % (0.0-2.0); Eosinophils # (Auto) 0.22 K/mcL (0.00-0.70); Eosinophils % (Auto) 3.5 % (0.0-7.0); Hematocrit 41.4 % (40.1-51.0); Hemoglobin 13.6 g/dL (13.7-17.5); Lymphocytes # (Auto) 1.85 K/mcL (1.50-4.80); Lymphocytes % (Auto) 29.8 % (15.5-49.0); Mean Cell Volume 89.6 fL (80.0-100.0); Mean Corpuscular HGB Conc 32.9 g/dL (31.0-36.0); Mean Platelet Volume 11.3 fL (7.4-10.4); Monocytes # (Auto) 0.87 K/mcL (0.10-0.90); Neutrophils % (Auto) 51.6 % (38.0-78.0); Platelet Count 267 K/mcL (140-440); RBC 4.62 M/mcL (4.63-6.08); Red Cell Distribution Width 17.8 % (11.5-14.5); WBC 6.2 K/mcL (4.5-11.0)
[2021-11-03 11:58] LABS: INR 0.9 (0.9-1.1)
[2021-11-03 12:18] LABS: Appearance,Urine CLEAR (Clear); Bilirubin,Urine Negative (Negative); Color,Urine YELLOW; Culture Indicated,Urine No; Glucose,Urine (UA) Negative (Negative); Ketones,Urine Negative (Negative); Leukocyte Esterase,Urine Negative /uL (Negative); Nitrate,Urine Negative (Negative); Protein,Urine Negative (Negative); Specific Gravity,Urine 1.023 (1.000-1.035); Urine Blood Negative (Negative); Urobilinogen,Urine Negative
[2021-11-03 12:33] LABS: ALT/SGPT 34 U/L (<40); AST/SGOT 33 U/L (<40); Albumin/Globulin Ratio 1.7 (1.0-2.3); Alkaline Phosphatase 55 U/L (39-117); Bilirubin,Total 0.3 mg/dL (0.1-1.0); Blood Urea Nitrogen 14 mg/dL (8-23); Calcium 9.6 mg/dL (8.6-10.4); Carbon Dioxide 21 mmol/L (22-30); Chloride 103 mmol/L (96-108); Globulin 2.4 gm/dL (2.2-3.7); Glomerular Filtration Rate 96; Glucose 99 mg/dL (70-105)
--- NOTE | 2021-11-04 07:55 | EKG ---
[facility] Test Date: 2021-11-03 Pat Name: Mal Fiore Department: NA Room: Gender: Male Line Person: : 1950 Requested By: Mohamud Leggett Order Number: [id number] Reading MD: Mark Trevino Measurements Intervals [place] Rate: 76 P: -20 MD: 136 QRS: 17 QRSD: 92 T: 6 QT: 369 QTc: 415 Interpretive Statements Sinus rhythm Electronically Signed On 11-04-2021 7:54:39 PDT by Mark Trevino /[email or web address]/[email or web address]/[id number]
[~2021-11-10 07:30] MED LIST: ceFAZolin 2 GM in DEXTROSE 5% IN WATER 50 ML IV SCH
--- OUTSIDE RECORDS SUMMARY | 2021-11-10 07:52 | External Medical Summary | Continuity of Care Document ---
:1950 Author Organization [facility] Care Team Providers Name Role Phone [facility] Unavailable Unavailable Problems Combined list of problems from Department of Defense and Veterans Affairs facilities. It does not include entries that were removed or entered in error. Problem Status Onset Problem Date of Comments Source Date Type Resolution Fracture of completed Diagnosis 687GB femoral shaft 022 [facility] Candidiasis completed Diagnosis 687GB 022 [facility] Respiratory completed Diagnosis 687GB infection 022 [facility] Pharyngitis completed Diagnosis 687GB 022 [facility] Osteoporosis completed Diagnosis 687GB 022 [facility] - Sleep apnea completed Diagnosis 68 7 Pat syndrome 022 M Aliza [facility] Fracture of neck Active Condition May 30, [facility] of femur 2020 Entered CLINIC By: JUAN TSRONG Comment: R ORIF fx 05/27/2021 Stress fracture of Active Condition Dr Maynor ahuja Ambulatory metatarsal 016 R foot 3, 4th Pharm acy bone(Confirmed)6 and new 5th stress fractures , [place]aver a pop after putting shoe on in Feb 2016, wearing walking shoe
4/201 8 new non displaced fracture mid shaft R 4th metatarsal anterior tibialis strain and R ATFL sprain Stress fracture of Active Condition May 10, [facility] metatarsal bone 016 2015 Entered C LINIC By: JUAN STRONG Comment: Dr Singh R foot 3, 4th and new 5th stress fractures , [place] a pop after putting shoe on in Feb 2016, wearing walking shoe Nov 08, 2017 Entered By: JUAN STRONG Comment: 10/2017 new non displaced fracture mid shaft R 4th metatarsal anterior tibialis strain and R ATFL sprain Psoriatic Active Condition Dr Ashley Zaragozaato ry arthritis(Confirme 015 rheumatoid Pharmacy d)4 Psoriatic Active Condition Mar 19, [facility] arthritis 015 2017 Entered CLINIC By: JUAN STRONG Comment: Dr Ramirez rheumatoid Osteopenia Active Condition Mar 28, [facility] 010 2013 Entered CLINIC By: JUAN STRONG Comment: osteopenia/ ostoeporosis fasamax [phone] Mar 28, 2014 Entered By: JUAN STRONG Comment: [facility] [place] [facility] 11/2009 [place] Colonoscopy Active Condition colonoscopy Amb ulatory normal(Confirmed)1 009 08/17/2018 P harmacy Xanthamatous benign rectal polyp benign repeat 10 yrs Colonoscopy normal Active Condition Mar 17, PAT Canela 009 2017 Entered [facility] By: [facility] JUAN STRONG Comment: 2009 benign mucosa repeat 10 yrs due 01/2019 UGI due also 2018Sep 04, 2018 Entered By: JUAN STRONG Comment: colonoscopy 08/17/2018 Xanthamatous benign rectal polyp benign repeat 10 yrs Acute Active Condition Ambulatory sinusitis(Confirme P harmacy d) Arthritis(Confirme Active Condition A mbulatory d) Pharmacy Bilateral Active Condition Ambulatory cataracts(Confirme P harmacy d) Candidiasis(Confir Active Condition A mbulatory med) Pharmacy Chest Active Condition Ambulatory pain(Confirmed) Phar bri Closed fracture of Active Condition A mbulatory fifth metatarsal Pha rmacy bone(Confirmed) Degeneration of Active Condition Ambu latory lumbar Pharmacy intervertebral disc(Confirmed) Degenerative Active Condition Ambulat ory cervical spinal Phar bri stenosis(Confirmed ) Dry Active Condition Ambulatory eyes(Confirmed) Phar bri Edema(Confirmed) Active Condition Amb ulatory Pharmacy Skin Active Condition Ambulatory eruption(Confirmed P harmacy ) Fracture of Active Condition Ambulato ry femoral Pharmacy shaft(Confirmed) Hyperlipidemia Active Condition Ambul atory Nec/Nos(Confirmed) P harmacy Impacted Active Condition Ambulatory cerumen(Confirmed) P harmacy Erectile Active Condition Ambulatory dysfunction(Confir P harmacy med) Knee Active Condition Ambulatory Pain(Confirmed)2 arthroscopic Pharmacy surgery november 2007 right Mixed Active Condition Ambulatory hyperlipidemia(Con P harmacy firmed) Obesity * Active Condition Ambulatory (ICD-9-CM Pharmacy 278.00)(Confirmed) Osteopenia(Confirm Active Condition osteopen ia/ Ambulatory ed)3 ostoeporosis Pharmac y fasamax [phone]
[facility] [place] [facility] 11/2009 [place] Pain of left Active Condition Ambulat ory shoulder Pharmacy joint(Confirmed) Pharyngitis(Confir Active Condition A mbulatory med) Pharmacy Psoriasis(Confirme Active Condition A mbulatory d) Pharmacy PSORIATIC Active Condition Ambulatory ARTHROPATHY(Confir P harmacy med) Respiratory Active Condition Ambulato ry infection(Confirme P harmacy d) OTHER AND UNSPEC. Active Condition Am bulatory SLEEP Pharmacy APNEA(Confirmed) Stable Active Condition Probable Ambulato ry angina(Confirmed)5 non cardiac Pharmacy chest pain per Dr Longo, Echo EF 65-70% heavy aortic root sclerosis, mild left vent enlargment mod hypertrophy mild mitral regurg, mil dot mod LAE small PFO, Stress test normal
10/2017 Tear film Active Condition Ambulatory insufficiency Pharma cy *(Confirmed) Acute sinusitis Active Condition [facility] Arthritis Active Condition [facility] Arthritis of knee Active Condition Jun 12, J MICHAEL Canela 2008 [facility]tered [facility] By: JENN JORGENSEN [facility] Jennifer Comment: arthroscopic surgery november 2007 right Bilateral Active Condition PAT Jiang cataracts [facility] Chest pain Active Condition [facility] Closed fracture of Active Condition [facility] fifth metatarsal CLI JANICE bone Coronary Active Condition [facility] arteriosclerosis CLI JANIEC Degeneration of Active Condition [facility] lumbar [facility] intervertebral disc Degenerative Active Condition [facility] cervical spinal CLIN IC stenosis Dry eyes Active Condition PAT Jiang [facility] Edema Active Condition [facility] Erectile Active Condition [facility] dysfunction [facility] Hyperlipidemia Active Condition [facility] Canela [facility] Impacted cerumen Active Condition [facility] Mixed Active Condition [facility] hyperlipidemia [facility] Obesity Active Condition PAT Jiang [facility] Obstructive sleep Active Condition KYA Canela apnea syndrome [facility] Osteopenia Active Condition [facility] Pain of left Active Condition [facility] shoulder joint CLINI C Psoriasis Active Condition PAT Jiang [facility] Psoriasis Active Condition [facility] Reflux,Fide/Esoph( Active Condition Mar 17, PAT Canela Gerd) 2017 Entered [employer] [facility] By: [facility] JUAN STRONG Comment: UGI 03/11/2011 squamous mild change repeat with colonoscopy 01/2019 Skin eruption Active Condition [place] [facility] Stable angina Active Condition Nov 08, [place] 2018 Entered CLINIC By: JUAN STRONG Comment: Probable non cardiac chest pain per Dr Longo, Echo EF 65-70% heavy aortic root sclerosis, mild left vent enlargment mod hypertrophy mild mitral regurg, mil dot mod LAE small PFO, Stress test normal Nov 08, 2017 Entered By: JUAN STRONG Comment: 10/2017 Diagnosis: active Diagnosis PAT Canela ICD-10-CM L40.52 [facility] Psoriatic [facility] arthritis mutilanswith Provider Comments: Psoriatic arthritis ([facility] [id number]) Diagnosis: active Diagnosis [facility] ICD-10-CM Z23 CLINIC Encounter for immunizationwith Provider Comments: Encounter for Immunization Diagnosis: active Diagnosis PAT Canela ICD-10-CM G47.33 [facility] Obstructive sleep [facility] apnea (adult) (pediatric)with Provider Comments: Obstructive sleep apnea syndrome ([facility] [id number]) Diagnosis: active Diagnosis PAT Canela ICD-10-CM Z46.0 BECCA OSORIO Encounter for [facility] fit/adjst of spectacles and contact lenseswith Provider Comments: Encounter for Fitting and Adjustment of Spectacles and Contact Lenses Diagnosis: active Diagnosis [facility] ICD-10-CM I25.119 CL INIC Athscl heart disease of [place] cor art w unsp ang pctrswith Provider Comments: Coronary arteriosclerosis (SNOMED CT [id number]) Diagnosis: active Diagnosis [facility] ICD-10-CM Z71.89 CLI JANICE Other specified counselingwith Provider Comments: Counseling,Oth Specified Medications Combined list of outpatient medications from Department of Defense and [facility] Affairs facilities. Medications provided include 1) outpatient medications from the last 15 months, and 2) patient-reported medications. Medication Details Route Status Patient Prescription Prescription Last Ordering Order Source Instructions Expires Number Dispense Provider Date Date alendronate TAKE ONE Discont 09/09/2022 [id number] TONI Reagan, 10/06/ Omar (U/D) 70 MG TABLET inued 2 JUAN Asif 2021 [place] ORAL TAB BY MOUTH [facility] EVERY SEVEN DAYS TAKE WITH FULL GLASS OF WATER 30 MINUTES BEFORE ANY FOOD, BEVERAGE , OR MEDICATI ON; REMAIN UPRIGHT FOR 30 MINUTES alendronate TAKE ONE Discont 09/04/2021 [id number] TONI H, 09/17/ Omar (U/D) 70 MG TABLET inued 1 JUAN E 2021 [place] ORAL TAB BY MOUTH [facility] EVERY SEVEN DAYS TAKE WITH FULL GLASS OF WATER 30 MINUTES BEFORE ANY FOOD, BEVERAGE , OR MEDICATI ON; REMAIN UPRIGHT FOR 30 MINUTES alendronate Discont 10/16/2021 A mbulat 70 mg oral 70 MG BY MOUTH EVERY SEVEN D AYS, # 12 EA, 2 total refill(s), Acute, MARIA TERESA [Not active] inued ory tablet Pharmac y alendronate Oral Ordered Ambula t 70 mg oral 70 MG BY MOUTH EVERY SEVEN D AYS, Oral, every week, # 12 tab(s), 3 total refill(s), Maintenance, 70 MG BY MOUTH EVERY SEVEN DAYS Oral every week, Pharmacy: [facility] [Federal Rx: #12 last filled 10/16/21] (given ory tablet by Pharmac mouth) y ALENDRONATE Oral Discont 03/17/2018 A mbulat 70MG TAB 70 mg, Oral, every 7 days, T AMY ONE TABLET BY MOUTH EVERY SEVEN DAYS TAKE WITH FULL GLASS OF WATER 30 MINUTES BEFORE ANY FOOD, BEVERAGE, OR MEDICATION; REMAIN UPRIGHT FOR 30 MINUTES, 0 total refill(s), Physician Stop (given inued ory by Pharmac mouth) y ALENDRONATE TAKE ONE ORAL DISCONT 09/04/2021 [id number] TAESEP 11/ [place] 70MG TAB TABLET INUE 1 ION E 2020 N [facility] BY [facility]OUTH CLINIC EVERY SEVEN DAYS TAKE WITH FULL GLASS OF WATER 30 MINUTES BEFORE ANY FOOD, BEVERAGE , OR MEDICATI ON; REMAIN UPRIGHT FOR 30 MINUTES ALENDRONATE TAKE ONE ORAL DISCONT 09/09/2022 [id number] TAE,SEP 11/ JONATHA 70MG TAB TABLET INUED 2 ION E 2021 N M. BY MOUTH [place] EVERY GHT SEVEN [facility] DAYS TAKE WITH FULL GLASS OF WATER 30 MINUTES BEFORE ANY FOOD, BEVERAGE , OR MEDICATI ON; REMAIN UPRIGHT FOR 30 MINUTES ALENDRONATE Active [id number] MARTINEZ, 05/13 5/ Pharmac SODIUM 2020 y Data (ALENDRONAT Transac E SODIUM), tion 70MG, Service TABLET, Facilit ORAL, y [facility], 4 ea. BLIST PACK AMOX Active [id number] MARTINEZ, 06/05/ Pha rmac -[facility] 1 2020 y Data M Transac CLAVULANATE tion (AMOXICILLI Service N/POTASSIUM Facilit CLAV), y 875-125 MG, TABLET, ORAL, [facility], 20 ea. BOTTLE AMOX Active [id number] STRONG, 10/21/ Pharm ac -[facility] 2 2021 y Data M Transac CLAVULANATE tion (AMOXICILLI Service N/POTASSIUM Facilit CLAV), y 875-125 MG, TABLET, ORAL, SANDOZ, 20 ea. BOTTLE AMOX Active [id number] HANS, 07/02/ Pharm ac -[facility] 1 2020 y Data M Transac CLAVULANATE tion (AMOXICILLI Service N/POTASSIUM Facilit CLAV), y 875-125 MG, TABLET, ORAL, SANDOZ, 20 ea. BOTTLE AMOX Active [id number] FAROOQ 05/27/ Ph armac -[facility] 2020 y Data M Transac CLAVULANATE tion (AMOXICILLI Service N/POTASSIUM Facilit CLAV), y 875-125 MG, TABLET, ORAL, SANDOZ, 20 ea. BOTTLE atorvastati TAKE ONE Discont 10/26/2021 [id number] TONI H, 10/06/ Omar n (U/D) 40 TABLET inued 2 JUAN E 2021 [place] MG ORAL TAB BY MOUTH [facility] EVERY DAY FOR CHOLESTE ROL atorvastati Discont 10/16/2021 A mbulat n 40 mg See dose instructions in com ments, # 90 EA, 0 total refill(s), Acute, MARIA TERESA [Not active] inued ory oral tablet Pharmac y atorvastati Oral Ordered Ambula t n 40 mg See dose instructions in com ments, Oral, Daily, # 90 tab(s), 3 total refill(s), Maintenance, See dose instructions in comments Oral Daily, Pharmacy: [facility] [Federal Rx: #90 last filled 10/16/21] (given ory oral tablet by Pharmac mouth) y Atorvastati TAKE ONE Discont 12/13/2020 [id number] TONI H, [place] n 40mg, TABLET inued 1 JUAN 2020 [place] (Lipitor), BY MOUTH [facility] Tablet, EVERY Oral DAY FOR CHOLESTE ROL ATORVASTATI TAKE ONE ORAL DISCONT 12/13/2020 [id number] STRONG,SEP 16/ [place] N [place] 40MG TABLET INUE 1 ION E 2019 N [facility] TAB BY MOUTH CLINIC EVERY DAY FOR CHOLESTE ROL ATORVASTATI TAKE ONE ORAL DISCONT 10/26/2021 [id number] STRONG,SEP 15/ [place] N CA 40MG TABLET INUED 2 ION 2020 N [facility] TAB BY MOUTH CLINIC EVERY DAY FOR CHOLESTE ROL ATORVASTATI Active [id number] MARTINEZ, 05/13 5/ Pharmac N CALCIUM 1 2020 y Data (ATORVASTAT Transac IN tion CALCIUM), Service 40 MG, Facilit TABLET, y ORAL, [employer], 90 ea. BOTTLE ATORVASTATI Oral Discont 10/16/2021 A mbulat N CALCIUM 40 mg, Oral, Daily, TAKE ONE TABLET BY MOUTH EVERY DAY FOR CHOLESTEROL, 0 total refill(s) (given inued ory 40MG TAB by Pharmac mouth) y Augmentin Oral Complet 10/26/2021 Amb ulat 875 mg-125 amoxicillin (as trihydrate) 1 tab(s), Oral, every 12 hr, resp infection, X 10 days, # 20 tab(s), 0 total refill(s), Acute, 10/26/2021, Submit claims to PBM: [employer] BIN#: [id number] PCN: [id number] RXGRP: [id number] rejects call: ;, 1... (given ed ory mg oral by Pharmac tablet mouth) y Benzonatate Active [id number] FAROOQ / Pharmac (Epic 2020 y Twijector) Transac 100 CAPSULE tion in 1 BOTTLE Service Facilit y calcium (as Complet 09/01/2021 A mbulat carbonate)- See dose instructions in com ments, # 180 EA, 0 total refill(s), Acute, MARIA TERESA [Not filled] ed ory vitamin D Pharmac 600 mg-10 y mcg (400 intl units) oral tablet Calcium Oral Discont 10/16/2021 Ambul at 600+D oral 1 tab(s), Oral, BID, 0 total refill(s), Maintenance (given i nued ory tablet by Pharmac mouth) y Calcium Oral Ordered Ambulat 600+D oral 1 tab(s), Oral, BID, # 60 ta b(s), 0 total refill(s), Maintenance, 1 tab(s) Oral BID, [facility] [Last filled 10/16/21] (given ory tablet by Pharmac mouth) y CALCIUM TAKE 1 ORAL DISCONT 12/13/2020 [id number] SEP 16/ [place] 600MG ( TABLET INUE 1 ION E 2019 N [facility] CARBONATE)/ BY MOUTH CLINI C VITAMIN D TWICE A 400UNIT TAB DAY FOR VITAMIN SUPPLEME NT CALCIUM TAKE 1 ORAL 09/04/2021 [id number] SEP 13/ [place] 600MG ( TABLET 2 ION E 2020 N [facility] CARBONATE)/ BY MOUTH CLINI C VITAMIN D TWICE A 400UNIT TAB DAY FOR VITAMIN SUPPLEME NT CALCIUM Oral Discont 10/16/2021 Ambul at 600MG/VITAM Oral, BID, TAKE 1 TABLET BY MOUTH TWICE A DAY FOR VITAMIN SUPPLEMENT, 0 total refill(s) (given inued ory IN D TAB by Pharmac mouth) y Calcium TAKE 1 09/04/2021 [id number] TAE / Omar Carbonate/V TABLET 2 2021 [place] itamin D BY MOUTH [facility] (Calcarb TWICE A 600 DAY FOR W/Vitamin D VITAMIN Eq.) Tablet SUPPLEME 600 mg-400 NT Units Oral CALCIUM TAKE ORAL ACTIVE SEP 17/ ERIC O CITRATE TAB 500MG BY ION E 2018 N [facility] MOUTH [facility]INIC TWICE A DAY CARBAMIDE Discont 03/17/2018 Amb ulat PEROXIDE BOTH EARS, every day at bedt aubrey, INSTILL 5 DROPS IN BOTH EARS AT BEDTIME FOR EAR WAX SOFTENING / CONTROL APPLY TO AFFECTED EARS FOR 5 NIGHTS. CALL CLINIC WHEN RECIEVED FOR FLUSHING., 0 total refill(s), Physician Stop inued ory 6.5% OTIC Pharmac SOLN y CARBAMIDE Complet 09/26/2020 Amb ulat PEROXIDE BOTH EARS, every day at bedt aubrey, INSTILL 5 DROPS IN BOTH EARS AT BEDTIME FOR EAR WAX SOFTENING / CONTROL CALL CLINIC FOR EAR IRRIGATION WHEN BOTTLE ARRIVES. 5 DROPS TO LEFT EAR FOR 5 NIGHTS BEFORE PROCEDURE, 0 total refill(s) ed ory 6.5% OTIC Pharmac SOLN y carboxymeth INJECT Active 01/16/2022 [id number] Thompson , 200CRNR ylcel 0.5% THE 1 Juan 2021 EYE DROP [2 CONTENTS X15ML] OF ONE SYRINGE (200MG) UNDER SKIN EVERY 2 WEEKS INJECT 200 MG SUBCUTAN EOUSLY EVERY 2 WEEKS carboxymeth INSTILL Active 01/16/2022 [id number] Toni h, 200CRNR ylcel 0.5% 1 DROP 1 Juan 2021 EYE DROP [2 IN EACH X15ML] EYE THREE TIMES A DAY FOR DRY EYE carboxymeth TAKE ONE Active 01/16/2022 [id number] [facility] th, 200CRNR ylcel 0.5% TABLET 1 Juan 2021 EYE DROP [2 BY MOUTH X15ML] THREE TIMES A DAY NEEDED FOR MUSCLE SPASMS carboxymeth INSTILL Discont 01/19/2022 [id number] STRONG , 10/06/ [place] ylcel 0.5% 1 DROP inued 2 JUAN E 2021 [place] EYE DROP [2 IN EACH [facility] X15ML] EYE THREE TIMES A DAY FOR DRY EYE CARBOXYMETH Discont 01/05/2018 A mbulat YLCELLULOSE EACH EYE, TID, INSTILL 1 BLANCA P IN EACH EYE THREE TIMES A DAY FOR DRY EYE, 0 total refill(s), Physician Stop inued ory 0.5% OPH Pharmac 15ML PRAVIN y CARBOXYMETH Ordered Ambula t YLCELLULOSE EACH EYE, TID, INSTILL 1 BLANCA P IN EACH EYE THREE TIMES A DAY FOR DRY EYE, 0 total refill(s) ory 0.5% OPH Pharmac 15ML PRAVIN y CARBOXYMETH INSTILL EACH DISCONT 01/19/2022 [id number] ALBERS ,SEP 15/ [place] YLCELLULOSE 1 DROP EYE INUED 2 ION E 2020 N [facility] NA 0.5% IN EACH CLINIC SOLN,OPH EYE THREE TIMES A DAY FOR DRY EYE carboxymeth Discont 10/16/2021 A mbulat ylcellulose 1 DROP EACH EYE THREE TIMES A DAY, # 15 mL, 6 total refill(s), Hard Stop, MARIA TERESA [Not active] inued ory sodium 0.5% Pharmac eye drops y [15mL] CEPHALEXIN Active [id number] OBRIEN, 04/12/ Pharmac (CEPHALEXIN 1 2020 y Data MONOHYDRATE Transac ), 500MG, tion CAPSULE, Service ORAL, [employer] [place], 500 y ea. BOTTLE certolizuma Ordered 08/06/2022 A mbulat b 200 mg/mL See dose instructions in com ments, # 1 EA, 1 total refill(s), Hard Stop, MARIA TERESA [Federal Rx: #1 last filled 10/07/21] ory 1 Dose Kit Pharmac (2syr/kit) y CERTOLIZUMA INJECT SUBCUT DISCONT 08/30/2021 [id number] [facility],SEP 09/ JONATHA B PEGOL THE ANEOUS INUED 2 ION E 2021 N M. 200MG/ML CONTENTS (EDIT) [place] INJ,SOLN,SY OF ONE GHT R,KIT,2 SYRINGE [facility] (200MG) SUBCUTAN EOUSLY (UNDER SKIN) EVERY 2WEEKS INJECT 200 MG SUBCUTAN EOUSLY EVERY 2 WEEKS CERTOLIZUMA INJECT SUBCUT DISCONT 08/07/2022 [id number] [facility],SEP 10/ [place] B PEGOL THE ANEOUS INUED 2 ION E 2021 N [facility] 200MG/ML CONTENTS CLINIC INJ,SOLN,SY OF ONE R,KIT,2 SYRINGE (200MG) UNDER SKIN EVERY 2 WEEKS INJECT 200 MG SUBCUTAN EOUSLY EVERY 2 WEEKS Certolizuma INJECT Active 08/06/2022 [id number] Tae , 200CRNR b Pegol THE 2 2021 200mg/mL, CONTENTS Injection, OF ONE Prefilled SYRINGE Syringe (200MG) UNDER SKIN EVERY 2 WEEKS INJECT 200 MG SUBCUTAN EOUSLY EVERY 2 WEEKS Certolizuma INJECT Discont 08/07/2022 [id number] TAE, 10/06/ Omar b Pegol THE inued 2 2021 [place] 200mg/mL, CONTENTS [facility] Injection, OF ONE Prefilled SYRINGE Syringe (200MG) UNDER SKIN EVERY 2 WEEKS INJECT 200 MG SUBCUTAN EOUSLY EVERY 2 WEEKS Certolizuma INJECT 08/30/2021 [id number] TAE, 08/02/ Omar b Pegol THE 2 2021 [place] 200mg/mL, CONTENTS [facility] Injection, OF ONE Prefilled SYRINGE Syringe (200MG) SUBCUTAN EOUSLY (UNDER SKIN) EVERY 2WEEKS INJECT 200 MG SUBCUTAN EOUSLY EVERY 2 WEEKS cholecalcif TAKE ONE Discont 11/27/2021 [id number] TONI H, 10/06/ Omar (VIT D3) TABLET inued 2 2021 [place] 2,000 UNIT BY MOUTH [facility] ORAL TAB EVERY DAY FOR VITAMIN D SUPPLEME NT CHOLECALCIF Oral Discont 10/16/2021 A mbulat 50MCG 2000 unit(s), Oral, Daily, T AMY ONE TABLET BY MOUTH EVERY DAY FOR VITAMIN D SUPPLEMENT, 0 total refill(s) (given inued ory (D3-2,000UN by Pharmac IT) TAB mouth) y CHOLECALCIF TAKE ONE ORAL ACTIVE ,SEP 17/ [place] MELIDA 25MCG TABLET ION E 2019 N [facility] (1,000UNIT) BY MOUTH CLINI C TAB EVERY DAY cholecalcif Oral Discont 10/16/2021 A mbulat melida 50 mcg 2000 UNIT, Oral, Daily, # 10 0 EA, 0 total refill(s), Acute, MARIA TERESA [Not active] (given inued ory (2000 intl by Pharmac units) oral mouth) y tablet cholecalcif Oral Ordered Ambula t melida 50 mcg 2000 UNIT, Oral, Daily, # 10 0 tab(s), 0 total refill(s), Maintenance, 2000 UNIT Oral Daily, Pharmacy: [facility] [Last filled 10/16/21] (given ory (2000 intl by Pharmac units) oral mouth) y tablet CHOLECALCIF TAKE ONE ORAL DISCONT 11/27/2021 [id number] ,SEP 13/ [place] MELIDA 50MCG TABLET INUED 2 ION E 2020 N [facility] (2,000UNIT) BY MOUTH CLINI C TAB EVERY DAY FOR VITAMIN D SUPPLEME NT CHONDROITIN TAKE ONE ORAL ACTIVE SEP 17/ [place] /GLUCOSAMIN TABLET ION E 2018 N VA E CAP/TAB BY MOUTH CLINIC TWICE A DAY CHONDROITIN ONE ACTIVE SOLOMONK 04/24/ KYA NATHA /GLUCOSAMIN TABLET ,HOWARD 2004 N M. E CAP/TAB EVERY R N [place] DAY GHT [facility] CLINDAMYCIN Topica Complet 09/26/2020 Ambulat PHOSPHATE Topical, APPLY A SMALL AMOUN T TO AFFECTED AREA OF NECK DAILY (ANTIBIOTIC), 0 total refill(s) l (on ed ory 1% TOP GEL the Pharmac skin) y CLINDAMYCIN Topica Discont 12/14/2019 Ambulat PHOSPHATE Topical, APPLY A SMALL AMOUN T TO AFFECTED AREA OF NECK DAILY (ANTIBIOTIC), 0 total refill(s), Physician Stop l (on inued ory 1% TOP GEL the Pharmac skin) y CLOTRIMAZOL Discont 12/13/2019 A mbulat E 1% TOP LEFT EAR, BID, PLACE A SMALL AMOUNT IN LEFT EAR TWICE A DAY UNTIL FUNGUS IS RESOLVED, 0 total refill(s), Physician Stop inued ory SOLN Pharmac y Compounded TAKE ONE 08/07/2021 [id number] STRONG , 08/10/ [place] Prilosec CAPSULE 1 JUAN2021 [place] Capsule BY MOUTH [facility] Conventiona EVERY l 20 mg MORNING Oral BEFORE BREAKFAS T FOR STOMACH ACID DEHYDROEPIA TAKE 1 ORAL ACTIVE ,SEP 17/ L [place] NDROSTERONE CAPSULE ION E 2018 N [facility] CAP/TAB (25MG) CLINIC DHEA 100MG BY MOUTH EVERY DAY DEHYDROEPIA TAKE 1 ORAL ACTIVE SEP 12/ L [place] NDROSTERONE CAPSULE ION E 2018 N [facility] CAP/TAB (25MG) CLINIC DHEA 200MG BY MOUTH EVERY DAY DESONIDE Topica Complet 09/26/2020 Amb ulat 0.05% CREAM Topical, Daily, APPLY THIN F ILM TO AFFECTED AREA EVERY DAY, 0 total refill(s) l (on ed ory the Pharmac skin) y DESONIDE Topica Discont 12/14/2019 Amb ulat 0.05% CREAM Topical, Daily, APPLY THIN F ILM TO AFFECTED AREA EVERY DAY, 0 total refill(s), Physician Stop l (on inued ory the Pharmac skin) y DHEA 50 mg Oral Ordered Ambulat oral tablet 2 tab(s), Oral, Daily, 0 total refill(s), Maintenance (given ory by Pharmac mouth) y DICLOFENAC Topica Discont 08/02/2019 A mbulat NA 1% TOP Topical, QID, APPLY 2-4 GRAM S DIRECTED TO AFFECTED AREA FOUR TIMES A DAY NEEDED FOR JOINT PAIN * LIMIT DAILY DOSE TO 8 GRAMS TO UPPER BODY AND 16 GRAMS TO LOWER BODY, 0 total refill(s), Physician Stop l (on inued ory GEL the Pharmac skin) y ENBREL Active [id number] MARTINEZ, [place] (etanercept 2020 y Data ), Transac 50MG/ML(1), tion SYRINGE, Service SUBCUT, Facilit AMGEN, 1 ml y SYRINGE Etanercept INJECT Discont 12/18/2021 [id number] TAE, Omar (Enbrel Kit 50MG inued 1 JUAN E 2020 [place] Eq.) UNDER [facility] Solution SKIN When TWICE A Reconstit[place] WEEK FOR ed 25 mg PSORIATI Subcutaneou C s ARTHRITI S; PER DR. VITO QURESHI IN [place], . INJECT 25MG IN TWO SEPARATE SITES. Etanercept INJECT Discont 12/13/2020 [id number] TAE, Omar (Enbrel Kit 50MG inued 1 JUAN E 2020 [place] Eq.) UNDER [facility] Solution SKIN When TWICE A Re[place]stit[place] WEEK FOR ed 25 mg PSORIATI Subcutaneou C s ARTHRITI S; PER DR. VITO QURESHI IN [place], . INJECT 25MG IN TWO SEPARATE SITES. ETANERCEPT INJECT SUBCUT DISCONT 02/06/2022 [id number] TAE, SEP 15/ JONATHA 25MG/0.5ML 50MG ANEOUS INUE 2 ION E 2021 N M. INJ SYRINGE SUBCUTAN WAINW RI EOUSLY GHT (UNDER [facility] SKIN) TWICE A WEEK FOR PSORIATI C ARTHRITI S PER DR. QURESHI. INJECT 25MG IN TWO SEPARATE SITES DIRECTED . ETANERCEPT SubCut Discont 08/02/2019 A mbulat 25MG/CELE SubCutaneous, INJECT 50MG UN [place]ARET[place] SKIN TWICE A WEEK FOR PSORIATIC ARTHRITIS; PER DR. MERVAT QURESHI IN [place], . INJECT 25MG IN TWO SEPARATE SITES., 0 total refill(s), Physician Stop aneous inued ory INJ (under Pharmac W/SYRINGE the y skin) ETANERCEPT INJECT SUBCUT DISCONT 12/18/2021 [id number] [facility] TH,SEP 14/ [place] 25MG/CELE 50MG ANEOUS INUE 1 ION E 2020 N [facility] INJ [facility]INIC W/[place] SKIN TWICE A WEEK FOR PSORIATI C ARTHRITI S; PER DR. VITO QURESHI IN [place], [phone]. INJECT 25MG IN TWO SEPARATE SITES. ETANERCEPT INJECT SUBCUT DISCONT 12/13/2020 [id number] [facility] TH,SEP 14/ [place] 25MG/CELE 50MG ANEOUS INUE 1 ION E 2019 N [facility] INJ [facility] CLINIC W/[place] SKIN TWICE A WEEK FOR PSORIATI C ARTHRITI S; PER DR. VITO QURESHI IN [place], [phone]. INJECT 25MG IN TWO SEPARATE SITES. Etanercept INJECT Discont 02/06/2022 [id number] TAE, 08/02/ [place] Sureclick 50MG inued 2 2021 [place] (Enbrel SUBCUTAN [facility] Eq.) EOUSLY Syringe 50 (UNDER mg per mL SKIN) Injection TWICE A WEEK FOR PSORIATI C ARTHRITI S PER DR. QURESHI. INJECT 25MG IN TWO SEPARATE SITES DIRECTED . Etanercept INJECT Active 02/06/2022 [id number] TAE, 0 02/06/ [place] Sureclick 50MG 1 E 2020 [place] (Enbrel [facility] Eq.) EOUSLY Syringe 50 (UNDER mg per mL SKIN) Injection TWICE A WEEK FOR PSORIATI C ARTHRITI S PER DR. QURESHI. INJECT 25MG IN TWO SEPARATE SITES DIRECTED . FENOFIBRATE Active [id number] MARTINEZ, 05/13 5/ Pharmac (fenofibrat 1 2020 y Data e Transac nanocrystal tion lized), Service 145MG, Facilit TABLET, y ORAL, [employer]., 90 ea. BOTTLE Fenofibrate TAKE ONE 09/04/2021 [id number] TONI H, 09/12/ Omar (TriCor TABLET 2 JUAN E 2021 [place] Eq.) Tablet BY MOUTH [facility] 145 mg Oral EVERY DAY fenofibrate Oral Complet 09/01/2021 A mbulat 145 mg oral 145 MG, Oral, Daily, # 90 EA , 0 total refill(s), Acute, MARIA TERESA [Not filled] (given ed ory tablet by Pharmac mouth) y fenofibrate Oral Ordered Ambula t 145 mg oral 1 tab(s), Oral, Daily, TAKE ONE TABLET BY MOUTH EVERY DAY, # 90 tab(s), 3 total refill(s), Maintenance, 1 tab(s) Oral Daily,Instr:TAKE ONE TABLET BY MOUTH EVERY DAY, Pharmacy: [facility] [Federal Rx: #90 last filled 10/16/21] (given ory tablet by Pharmac mouth) y FENOFIBRATE Oral Discont 12/14/2019 A mbulat 145MG TAB 145 mg, Oral, Daily, TAKE ON E TABLET BY MOUTH EVERY DAY, 0 total refill(s), Physician Stop (given inued ory by Pharmac mouth) y FENOFIBRATE TAKE ONE ORAL DISCONT 12/13/2020 [id number] TAESEP 16/ [place] 145MG TAB TABLET INUE 1 ION E 2019 N [facility] BY [facility]OUTH CLINIC EVERY DAY FENOFIBRATE TAKE ONE ORAL 09/04/2021 [id number] SEP 13/ [place] 145MG TAB TABLET 2 ION E 2020 N [facility] BY [facility]TH [facility]INIC EVERY DAY FENOFIBRATE TAKE ONE ORAL ACTIVE SEP 12/ [place] 145MG TAB TABLET ION E 2018 N [facility] BY [facility]OUTH CLINIC EVERY DAY FISH OIL Oral Discont 07/15/2018 Ambu lat 1000MG 1000 mg, Oral, Daily, TAKE O NE CAPSULE BY MOUTH EVERY DAY FOR NUTRITIONAL SUPPLEMENT, 0 total refill(s), Physician Stop (given inued ory (500MG by Pharmac DHA/EPA) mouth) y CAP FISH OIL Oral Ordered Ambulat 1000MG 1000 mg, Oral, Daily, TAKE O NE CAPSULE BY MOUTH EVERY DAY FOR NUTRITIONAL SUPPLEMENT, 0 total refill(s) (given ory (500MG by Pharmac DHA/EPA) mouth) y CAP FISH OIL Oral Complet 05/09/2020 Ambu lat 1000MG 1000 mg, Oral, Daily, TAKE O NE CAPSULE BY MOUTH EVERY DAY, 0 total refill(s) (given ed ory (500MG by Pharmac DHA/EPA) mouth) y CAP FISH OIL TAKE ONE ORAL DISCONT 12/08/2021 [id number] Alvarado STRONG AR 12/08/ [place] 1000MG CAPSULE INUED 2 2020 N [facility] (500MG BY MOUTH CLINIC DHA/EPA) EVERY CAP,ORAL DAY FOR NUTRITIO NAL SUPPLEME NT FLOMAX Take 1 Active 10/16/2022 [id number] Tae, CRNR (BRAND) 0.4 capsule 2 2021 MG ORAL CAP by mouth daily FLOMAX TAKE ONE Discont 12/25/2021 [id number] TAE, / Samanthaa (BRAND) 0.4 CAPSULE inued 2 2021 [place] ORAL CAP BY MOUTH [facility] EVERY DAY FOR PROSTATE FLOMAX TAKE ONE Active 12/25/2021 [id number] TAE, / [place] (BRAND) 0.4 CAPSULE 1 2020 [place] ORAL CAP BY MOUTH [facility] EVERY DAY FOR PROSTATE FOLIC ACID TAKE ONE Discont 11/27/2021 [id number] TAE , 10/06/ [place] (U/D) 1 MG TABLET inued 2 2021 [place] ORAL TAB BY MOUTH [facility] EVERY DAY folic acid Oral Discont 10/16/2021 Am bulat 1 mg oral 1 MG, Oral, Daily, # 90 EA, 0 total refill(s), Acute, MARIA TERESA [Not active] (given inued ory tablet by Pharmac mouth) y folic acid Oral Ordered Ambulat 1 mg oral 1 MG, Oral, Daily, # 90 tab( s), 0 total refill(s), Maintenance, 1 MG Oral Daily, Pharmacy: [facility] [Last filled 10/16/21] (given ory tablet by Pharmac mouth) y FOLIC ACID Oral Discont 08/02/2019 Am bulat 1MG TAB 1 mg, Oral, Daily, TAKE ONE TABLET BY MOUTH EVERY DAY PER DR. MERVAT QURESHI [phone] IN [place], [place], 0 total refill(s), Physician Stop (given inued ory by Pharmac mouth) y FOLIC ACID TAKE ONE ORAL DISCONT 11/27/2021 [id number] STRONG ,PIERRE 11/27/ [place] 1MG TAB TABLET INUED 2 ION E 2020 N [facility] BY MOUTH CLINIC EVERY DAY Glucosamine Oral Ordered Ambula t Chondroitin Oral, Daily, 0 total refill(s), Maintenance (given ory by Pharmac mouth) y Hydrochloro TAKE ONE Discont 07/23/2022 [id number] TONI H, 10/06/ [place] thiazide TABLET inued 2 JUAN E 2021 [place] (Oretic) BY MOUTH [facility] Tablet 25 EVERY mg Oral DAY (WATER PILL) Hydrochloro TAKE ONE 08/02/2021 [id number] TONI H, 03/28/ [place] thiazide TABLET 1 JUAN E 2020 [place] (Oretic) BY MOUTH [facility] Tablet 25 EVERY mg Oral DAY (WATER PILL) hydroCHLORO Oral Discont 10/16/2021 A mbulat thiazide 25 25 MG, Oral, Daily, # 90 EA, 2 total refill(s), Acute, MARIA TERESA [Not active] (given inued ory mg oral by Pharmac tablet mouth) y hydroCHLORO Oral Ordered Ambula t thiazide 25 25 MG, Oral, Daily, # 90 tab (s), 3 total refill(s), Maintenance, 25 MG Oral Daily, Pharmacy: [facility] [Federal Rx: #90 last filled 10/16/21] (given ory mg oral by Pharmac tablet mouth) y HYDROCHLORO Oral Discont 12/16/2017 A mbulat THIAZIDE 25 mg, Oral, Daily, TAKE ONE TABLET BY MOUTH EVERY DAY (WATER PILL), 0 total refill(s), Physician Stop (given inued ory 25MG TAB by Pharmac mouth) y HYDROCHLORO TAKE ONE ORAL DISCONT 08/02/2021 [id number] TAESEP 10/ [place] THIAZIDE TABLET INUE 1 ION E 2020 N [facility] 25MG TAB BY MOUTH CLINIC EVERY DAY (WATER PILL) HYDROCHLORO TAKE ONE ORAL DISCONT 07/23/2022 [id number] TAE,SEP 09/ [place] THIAZIDE TABLET INUED 2 ION E 2021 N [place] 25MG TAB BY MOUTH CLINIC EVERY DAY (WATER PILL) LEFLUNOMIDE TAKE ONE Active 07/20/2022 [id number] Smi th, 10/26/ 200CRNR 20 MG ORAL TABLET 2 2021 TAB BY MOUTH EACH EVENING WITH A MEAL FOR PSORIATI C ARTHRITI S LEFLUNOMIDE TAKE ONE Discont 07/23/2022 [id number] TONI H, 10/06/ [place] 20 MG ORAL TABLET inued 2 2021 [place] TAB BY MOUTH [facility] EACH EVENING WITH A MEAL FOR PSORIATI C ARTHRITI S LEFLUNOMIDE TAKE ONE 08/02/2021 [id number] TONI H, 03/28/ [place] 20 MG ORAL TABLET 1 2020 [place] TAB BY MOUTH [facility] EACH EVENING WITH A MEAL FOR PSORIATI C ARTHRITI S leflunomide Ordered 07/20/2022 A mbulat 20 mg 20 MG BY MOUTH EACH EVENING, # 90 EA, 2 total refill(s), Hard Stop, MARIA TERESA [Federal Rx: #90 last filled 10/24/21] ory tablet Pharmac y LEFLUNOMIDE Oral Discont 08/02/2019 A mbulat 20MG TAB 20 mg, Oral, TAKE ONE TABLET BY MOUTH EACH EVENING WITH A MEAL FOR PSORIATIC ARTHRITIS, 0 total refill(s), Physician Stop (given inued ory by Pharmac mouth) y LEFLUNOMIDE TAKE ONE ORAL DISCONT 08/02/2021 [id number] TAESEP 10/ [place] 20MG TAB TABLET INUE 1 ION E 2020 N [facility] BY MOUTH CLINIC EACH EVENING WITH A MEAL FOR PSORIATI C ARTHRITI S LEFLUNOMIDE TAKE ONE ORAL DISCONT 07/23/2022 [id number] STRONG,SEP 10/ [place] 20MG TAB TABLET INUED 2 ION E 2021 N [facility] BY MOUTH CLINIC EACH EVENING WITH A MEAL FOR GARTH [place] S LISINOPRIL TAKE ONE Discont 07/23/2022 [id number] TAE , 10/06/ [place] (U/D) 10 MG TABLET inued 2 2021 [place] ORAL TAB BY MOUTH [facility] EVERY DAY TO LOWER BLOOD PRESSURE LISINOPRIL TAKE ONE 08/02/2021 [id number] TAE , 03/28/ [place] (U/D) 10 MG TABLET 1 JUAN E 2020 [place] ORAL TAB BY MOUTH [facility] EVERY DAY TO LOWER BLOOD PRESSURE lisinopril Oral Discont 10/16/2021 Am bulat 10 mg oral 10 MG, Oral, Daily, # 90 EA, 2 total refill(s), Acute, MARIA TERESA [Not active] (given inued ory tablet by Pharmac mouth) y lisinopril Oral Ordered Ambulat 10 mg oral 10 MG, Oral, Daily, # 90 tab (s), 3 total refill(s), Maintenance, 10 MG Oral Daily, Pharmacy: [facility] [Federal Rx: #90 last filled 10/16/21] (given ory tablet by Pharmac mouth) y LISINOPRIL TAKE ONE ORAL DISCONT 08/02/2021 [id number] [facility],SEP 10/ [place] 10MG TAB TABLET INUE 1 ION E 2020 N [facility] BY MOUTH CLINIC EVERY DAY TO LOWER BLOOD PRESSURE LISINOPRIL TAKE ONE ORAL DISCONT 07/23/2022 [id number] S [facility],SEP 10/ [place] 10MG TAB TABLET INUED 2 ION E 2021 N [facility] BY [facility]OUTH CLINIC EVERY DAY TO LOWER BLOOD PRESSURE LISINOPRIL Oral Discont 08/02/2019 Am bulat 10MG TABLET 10 mg, Oral, Daily, TAKE ONE TABLET BY MOUTH EVERY DAY TO LOWER BLOOD PRESSURE, 0 total refill(s), Physician Stop (given inued ory by Pharmac mouth) y medication Complet 04/12/2021 Am bulat disposal See dose instructions in com ments, # 1 EA, 0 total refill(s), Acute, MARIA TERESA [Not filled] ed ory patient pkt Pharmac y METHOCARBAM Active [id number] MARTINEZ, 05/13 5/ Pharmac OL 2020 y Data (methocarba Transac mol), 750 tion MG, TABLET, Service ORAL, [facility], y 500 ea. BOTTLE methocarbam TAKE ONE Discont 09/09/2022 [id number] TONI H, 10/06/ [place] ol (U/D) TABLET inued 2 2021 [place] 750 MG ORAL BY MOUTH [facility] TAB THREE TIMES A DAY NEEDED FOR MUSCLE SPASMS methocarbam TAKE ONE Discont 09/10/2021 [id number] TONI H, 09/17/ [place] ol (U/D) TABLET inued 2 2021 [place] 750 MG ORAL BY MOUTH [facility] TAB THREE TIMES A DAY NEEDED FOR MUSCLE SPASMS methocarbam Oral Ordered Ambula t ol 750 mg See dose instructions in com ments, Oral, TID, PRN muscle spasm, # 90 tab(s), 3 total refill(s), Maintenance, See dose instructions in comments Oral TID,PRN:muscle spasm, Pharmacy: [facility] [Federal Rx: #90 last filled 10/17/21] (given ory oral tablet by Pharmac mouth) y methocarbam Discont 10/16/2021 A mbulat ol 750 mg See dose instructions in com ments, # 90 EA, 2 total refill(s), Hard Stop, MARIA TERESA [Not active] inued ory tablet Pharmac y METHOCARBAM TAKE ONE ORAL DISCONT 09/10/2021 [id number] S PIERRE RODRIGUEZ 09/09/ [place] 750MG TABLET INUE 2 ION E 2020 N [facility] TAB BY MOUTH CLINIC THREE TIMES A DAY NEEDED FOR MUSCLE SPASMS METHOCARBAM TAKE ONE ORAL DISCONT 09/09/2022 [id number] PIERRE STRONG 09/22/ JON[place]HA [place] 750MG TABLET INUED 2 ION E 2021 N M. TAB BY MOUTH [place] THREE GHT TIMES A [facility] DAY NEEDED FOR MUSCLE SPASMS METHOTREXAT Active [id number] MARTINEZ, 05/13 5/ Pharmac E 2020 y Data (METHOTREXA Transac TE SODIUM), tion 2.5MG, Service TABLET, Facilit ORAL, y [facility] 100 ea. BOTTLE metHOTREXat TAKE TEN Discont 07/28/2022 [id number] TONI H, 10/06/ [place] e (U/D) 2.5 TABLETS inued 2 2021 [place] ORAL TAB BY MOUTH [facility] EVERY 7 DAYS ONCE A WEEK FOR PSORIATI C ARTHRITI S methotrexat Ordered 07/25/2022 A mbulat e 2.5 mg See dose instructions in [place], # 120 EA, 1 total refill(s), Acute, MARIA TERESA [Not filled] ory oral tablet Pharmac y METHOTREXAT Oral Discont 10/16/2021 A mbulat E NA 2.5MG 25 mg, Oral, every 7 days, T AMY TEN TABLETS BY MOUTH EVERY 7 DAYS ONCE A WEEK FOR PSORIATIC ARTHRITIS, 0 total refill(s) (given inued ory TAB by Pharmac mouth) y METHOTREXAT TAKE TEN ORAL DISCONT 07/28/2022 [id number] S MITH,MAR 07/29/ [place] E NA 2.5MG TABLETS INUED 2 2021 N [place] TAB BY MOUTH CLINIC EVERY 7 DAYS ONCE A WEEK FOR PSORIATI C ARTHRITI S metoprolol TAKE Active 07/20/2022 [id number] Tae, CRNR succ (U/D) ONE-HALF 2021 25 MG ORAL TABLET TB24 BY MOUTH AT BEDTIME metoprolol TAKE Discont 07/23/2022 [id number] TAE, 0 10/06/ [place] succ (U/D) ONE-HALF inued 2 2021 [place] 25 MG ORAL TABLET [facility] TB24 BY MOUTH AT BEDTIME metoprolol TAKE 09/04/2021 [id number] TAE, 1 / [place] succ (U/D) ONE-HALF 1 2020 [place] 25 MG ORAL TABLET [facility] TB24 BY MOUTH AT BEDTIME METOPROLOL TAKE ORAL DISCONT 09/04/2021 [id number] ESTEFANI STRONG 09/04/ [place] SUCCINATE ONE-HALF INUE 1 ION E 2020 N [place] 25MG TAB,SA TABLET CLINIC BY MOUTH AT BEDTIME METOPROLOL TAKE ORAL DISCONT 07/23/2022 [id number] Alvarado STRONG AR 08/20/ [place] SUCCINATE ONE-HALF INUED 2 ION E 2021 N [place] 25MG TAB,SA TABLET CLINIC BY MOUTH AT BEDTIME metoprolol Ordered 07/20/2022 Am bulat succinate 12.5 MG BY MOUTH AT BEDTIME, # 45 EA, 2 total refill(s), Hard Stop, MARIA TERESA [Federal Rx: #45 last filled 10/28/21] ory ER 25 mg/24 Pharmac hour tablet y multivitami Oral Discont 10/16/2021 A naz n adult, 2 tab(s), Oral, Daily, # 30 tab(s), 0 to gianna refill(s), Maintenance (given inued ory oral tablet by Pharmac mouth) y MULTIVITAMI TAKE ONE ORAL ACTIVE TAESEP 17/ [place] NS TABLET ION E 2019 N [facility] W/MINERALS BY MOUTH CLINIC TAB EVERY DAY MULTIVITAMI TAKE ONE ORAL ACTIVE MARTONICK 04/24/ JONATHA NS TABLET ,HOWARD 2005 N M. W/MINERALS BY MOUTH R N [place]AIN[place] I TAB EVERY GHT DAY [facility] NALOXONE Complet 09/26/2020 Ambu lat HCL NASAL, As Directed, SPRAY ON E DOSE IN NOSE DIRECTED NEEDED FOR ACCIDENTAL OPIOID (PAIN MEDICATION) OVERDOSE, MAY REPEAT IN OTHER NOSTRIL IN 3-5 MINUTES IF NEEDED, CALL 911, 0 total refill(s) ed ory 4MG/SPRAY Pharmac SOLN NASAL y SPRAY Naproxen TAKE 1-2 Discont 11/28/2021 [id number] TAE 10/06/ [place] (Naprosyn TABLET(S inued 2 2021 [place] Eq[place] Tablet ) BY [facility] 250mg Oral MOUTH TWICE A DAY NEEDED WITH FOOD FOR PAIN Naproxen Active [id number] MARTINEZ, 06/05/ Pharmac (Naproxen), 1 2020 y Data 500mg, Transac Tablet, tion Oral, Service Amneal Facilit Pharmace, y 500 Ea. Bottle naproxen TAKE ONE Discont 11/27/2021 [id number] TAE, 11/27/ [place] (U/D) 250 TABLET inued 1 2020 [place] MG ORAL TAB BY MOUTH [facility] TWICE A DAY NEEDED FOR PAIN MAY TAKE 1 TO 2 TABLETS TWICE DAILY DAILY WITH FOOD naproxen TAKE ONE Discont 09/14/2020 [id number] TAE, 11/27/ [place] (U/D) 250 TABLET inued 1 2020 [place] MG ORAL TAB BY MOUTH [facility] TWICE A DAY NEEDED FOR PAIN MAY TAKE 1 TO 2 TABLETS TWICE DAILY DAILY WITH FOOD naproxen Discont 10/16/2021 [place] 250 mg oral See dose instructions in com ments, # 360 EA, 0 total refill(s), Acute, MARIA TERESA [Not active] inued ory tablet Pharmac y naproxen Oral Ordered Ambulat 250 mg oral See dose instructions in com ments, Oral, BID, # 90 tab(s), 0 total refill(s), Maintenance, See dose instructions in comments Oral BID, Pharmacy: [facility] [Not filled] (given ory tablet by Pharmac mouth) y NAPROXEN Oral Discont 10/16/2021 [place] 250MG TAB 250 mg, Oral, BID, TAKE ONE TABLET BY MOUTH TWICE A DAY NEEDED FOR PAIN MAY TAKE 1 TO 2 TABLETS TWICE DAILY DAILY WITH FOOD, 0 total refill(s) (given inued ory by Pharmac mouth) y NAPROXEN TAKE ONE ORAL DISCONT 11/27/2021 [id number] PIERRE STRONG 12/01/ [place] 250MG TAB TABLET INUED 1 ION E 2020 [place] BY MOUTH (EDIT) CLINIC TWICE A DAY NEEDED FOR PAIN MAY TAKE 1 TO 2 TABLETS TWICE DAILY DAILY WITH FOOD NAPROXEN TAKE ONE ORAL DISCONT 09/14/2020 [id number] Alvarado STRONG 09/23/ [place] 250MG TAB TABLET INUE 1 ION E 2019 N [facility] BY MOUTH CLINIC TWICE A DAY NEEDED FOR PAIN MAY TAKE 1 TO 2 TABLETS TWICE DAILY DAILY WITH FOOD NAPROXEN TAKE 1-2 ORAL DISCONT 11/28/2021 [id number] Alvarado STRONG 12/01/ [place] 250MG TAB TABLET(S INUED 2 ION E 2020 N [facility] ) BY CLINIC MOUTH TWICE A DAY NEEDED WITH FOOD FOR PAIN NAPROXEN Oral Complet 05/09/2020 [place] 500MG TAB 500 mg, Oral, BID, TAKE ONE TABLET BY MOUTH TWICE A DAY NEEDED FOR PAIN CHANGE TO DAILY OR EVERY OTHER DAY. CAPDEBOSCQ CELLULOSE INSULATION HELPER, 0 total refill(s) (given ed ory by Pharmac mouth) y NAPROXEN Oral Discont 03/17/2018 [place] 500MG TAB 500 mg, Oral, BID, TAKE ONE TABLET BY MOUTH TWICE A DAY NEEDED FOR PAIN CHANGE TO DAILY OR EVERY OTHER DAY. CAPDEBOSCQ CELLULOSE INSULATION HELPER, 0 total refill(s), Physician Stop (given inued o ry by Pharmac mouth) y Nitroglycer Take 1 Active 10/16/2022 [id number] Tae , CRNR in capsule 2 2021 (Nitroquick by mouth Eq.) Tablet daily Sublingual 0.4mg Sublingual Nitroglycer Take 1 Active 10/16/2022 [id number] Tae , CRNR in tablet 2 2021 (Nitroquick by mouth Eq.) Tablet daily Sublingual 0.4mg Sublingual Nitroglycer Take 1 Active 10/16/2022 [id number] Strong , CRNR in tablet 2 Juan 2021 (Nitroquick by mouth Eq.) Tablet daily Sublingual 0.4mg Sublingual Nitroglycer Take 1 Active 10/16/2022 [id number] Strong , CRNR in tablet 2 2021 (Nitroquick by mouth Eq.) Tablet daily Sublingual 0.4mg Sublingual Nitroglycer Take 1 Active 10/16/2022 [id number] Strong , 200CRNR in tablet 2 Juan 2021 (Nitroquick by mouth Eq.) Tablet three Sublingual times a 0.4mg day as Sublingual needed for muscle spasms Nitroglycer Take 1 Active 10/16/2022 [id number] Strong , 200CRNR in tablet 2 Juan 2021 (Nitroquick by mouth Eq.) Tablet two Sublingual times a 0.4mg day Sublingual Nitroglycer Dissolve Active 10/16/2022 [id number] Smi th, CRNR in 1 tablet 2 2021 (Nitroquick under Eq.) Tablet the Sublingual tongue 0.4mg as Sublingual needed for CHEST PAIN MAY. REPEAT EVERY 5 MINUTES UP TO 3 DOSES Nitroglycer Take 1 Active 10/16/2022 [id number] Strong , CRNR in tablet 2 Juan 2021 (Nitroquick by mouth Eq.) Tablet daily Sublingual 0.4mg Sublingual Nitroglycer Take 1 Active 10/16/2022 [id number] Strong , 200CRNR in tablet 2 Juan 2021 (Nitroquick by mouth Eq.) Tablet daily Sublingual 0.4mg Sublingual Nitroglycer Take 1 Active 10/16/2022 [id number] Strong , CRNR in capsule 2 2021 (Nitroquick by mouth Eq.) Tablet daily Sublingual 0.4mg Sublingual Nitroglycer Take 1 Active 10/16/2022 [id number] Strong , 200CRNR in tablet 2 2021 (Nitroquick by mouth Eq.) Tablet daily Sublingual 0.4mg Sublingual Nitroglycer Take 1 Active 10/16/2022 [id number] Strong , 200CRNR in tablet 2 2021 (Nitroquick by mouth Eq.) Tablet every Sublingual week - 0.4mg do not Sublingual lie down for 30 minutes after taking Nitroglycer Take 2 Active 10/16/2022 [id number] Strong , 200CRNR in tablets 2 2021 (Nitroquick by mouth Eq.) Tablet two Sublingual times a 0.4mg day as Sublingual needed for fever/mi ld pain Nitroglycer DISSOLVE 08/16/2021 [id number] TONI H, [place] in ONE 1 JUAN2021 [place] (Nitroquick TABLET [facility] Eq.) Tablet UNDER Sublingual THE 0.4mg TONGUE Sublingual EVERY DAY FOR CHEST PAIN MAY REPEAT EVERY 5 MINUTES UP TO 3 DOSES nitroglycer Complet 08/13/2021 A mbulat in 0.4 mg 0.4 MG UNDER THE TONGUE, Rhiannon ly, # 100 EA, 2 total refill(s), Acute, MARIA TERESA [Not filled] ed ory sublingual Pharmac tablet y nitroglycer SubLin Ordered Ambul at in 0.4 mg 0.4 mg, SubLingual, Daily, D ISSOLVE ONE TABLET UNDER THE TONGUE EVERY DAY FOR CHEST PAIN MAY REPEAT EVERY 5 MINUTES UP TO 3 DOSES, # 100 tab(s), 0 total refill(s), Maintenance, 0.4 mg SubLingual Daily,I gual ory sublingual nstr:DISSOLVE ONE TABLET UNDER THE TONGUE EVERY... [ (disso Pharmac tablet lve y under the tongue ) NITROGLYCER SubLin Discont 10/16/2021 Ambulat IN 0.4MG SL 0.4 mg, SubLingual, Daily, D ISSOLVE ONE TABLET UNDER THE TONGUE EVERY DAY FOR CHEST PAIN MAY REPEAT EVERY 5 MINUTES UP TO 3 DOSES, 0 total refill(s) gual inued ory TAB (disso Pharmac lve y under the tongue ) NITROGLYCER DISSOLVE SUBLIN 08/16/2021 [id number] TAE,MAR 09/26/ [place] IN 0.4MG ONE GUAL 1 ION E 2020 N [place] TAB,SUBLING TABLET CLINIC UAL UNDER THE TONGUE EVERY DAY FOR CHEST PAIN MAY REPEAT EVERY 5 MINUTES UP TO 3 DOSES NYSTATIN Active [id number] STRONG, 10/21/ Ph [place] (NYSTATIN), 2 2021 y Data 434908/ML, Transac ORAL SUSP, tion ORAL, Service [facility], Facilit 480 ml y BOTTLE nystatin Oral Complet 10/23/2021 Ambu lat 100,000 5 mL, Oral, QID, swish and s wallow, X 7 days, # 140 mL, 0 total refill(s), Acute, 10/23/2021, 5 mL Oral QID,x7 days,Instr:swish and swallow, [id number] (given ed ory units/mL by Pharmac oral mouth) y suspension omega-3 Oral Ordered 12/05/2021 Ambul at polyunsatur 1000 MG, Oral, Daily, # 100 EA, 0 total refill(s), Acute, MARIA TERESA (given ory ated fatty by Pharmac acids 1000 mouth) y mg oral capsule omeprazole Complet 08/04/2021 Am bulat 20 mg oral 20 MG BY MOUTH EVERY MORNING BEFORE BREAKFAST, # 90 EA, 1 total refill(s), Acute, MARIA TERESA [Not filled] ed ory delayed Pharmac release y capsule OMEPRAZOLE TAKE ONE ORAL 08/07/2021 [id number] S MITH,MAR 08/07/ [place] 20MG CAP,EC CAPSULE 1 ION E 2020 N [place] BY MOUTH CLINIC EVERY MORNING BEFORE BREAKFAS T FOR STOMACH ACID OMEPRAZOLE Oral Discont 08/02/2019 Am bulat 20MG EC CAP 20 mg, Oral, TAKE ONE CAPSUL E BY MOUTH EVERY MORNING BEFORE BREAKFAST FOR STOMACH ACID, 0 total refill(s), Physician Stop (given inued ory by Pharmac mouth) y OMEPRAZOLE Oral Ordered Ambulat 20MG EC CAP 20 mg, Oral, TAKE ONE CAPSUL E BY MOUTH EVERY MORNING BEFORE BREAKFAST FOR STOMACH ACID, 0 total refill(s) (given ory by Pharmac mouth) y OMEPRAZOLE Oral Complet 05/09/2020 Am bulat 20MG EC CAP 20 mg, Oral, TAKE ONE CAPSUL E BY MOUTH EVERY MORNING BEFORE BREAKFAST FOR STOMACH ACID, 0 total refill(s) (given ed ory by Pharmac mouth) y oxyCODONE 5 Oral Ordered Ambula t mg oral 1 cap(s), Oral, every 4 hr, PRN pain (procedural), 0 total refill(s), Maintenance (given ory capsule by Pharmac mouth) y OXYCODONE-A Active [id number] KOSTA, 06/05 / Pharmac CETAMINOPHE 2020 y Data N Transac (OXYCODONE tion HCL/ACETAMI Service [facility]), Facilit 5MG-325MG, y TABLET, ORAL, [facility], 100 ea. BOTTLE PROMETHAZIN Active [id number] CAPRI / Pharmac E-DM 2020 y Data (PROMETHAZI Transac NE/DEXTROME tion THORPHAN), Service 6.25-15/5, Facilit SYRUP, y ORAL, KOSTA NAVARRO PH, 473 ml BOTTLE SIMVASTATIN Oral Discont 06/08/2017 A mbulat 80MG TAB 40 mg, Oral, Daily, TAKE ONE -HALF TABLET BY MOUTH EVERY DAY TO LOWER CHOLESTEROL, 0 total refill(s), Physician Stop (given inued ory by Pharmac mouth) y tamsulosin Oral Discont 10/16/2021 Am bulat 0.4 mg oral 0.4 MG, Oral, Daily, # 90 EA , 0 total refill(s), Acute, MARIA TERESA [Not active] (given inued ory capsule by Pharmac mouth) y tamsulosin Oral Ordered Ambulat 0.4 mg oral 0.4 MG, Oral, Daily, # 90 ta b(s), 3 total refill(s), Maintenance, 0.4 MG Oral Daily, Pharmacy: [facility] [Federal Rx: #90 last filled 10/17/21] (given ory capsule by Pharmac mouth) y TAMSULOSIN Oral Discont 12/14/2019 Am bulat HCL 0.4MG 0.4 mg, Oral, Daily, TAKE ON E CAPSULE BY MOUTH EVERY DAY FOR PROSTATE, 0 total refill(s), Physician Stop (given inued ory CAP by Pharmac mouth) y TAMSULOSIN TAKE 1 ORAL DISCONT 12/13/2020 [id number] STRONG, SEP 16/ [place] HCL 0.4MG CAPSULE INUE 1 [facility]ON E [facility] EVERY DAY FOR PROSTATE TAMSULOSIN TAKE ONE ORAL DISCONT 12/25/2021 [id number] S [facility],SEP 14/ [place] HCL 0.4MG CAPSULE INUED 2 ION E 2020 [facility] EVERY DAY FOR PROSTATE TRAMADOL Oral Discont 08/02/2019 [place] HCL 50MG 100 mg, Oral, BID, TAKE TWO TABLETS BY MOUTH TWICE A DAY FOR PAIN, 0 total refill(s), Physician Stop (given inued ory TAB by Pharmac mouth) y zzzAZITHROM Oral Discont 03/17/2018 A mbulat YCIN 250MG 250 mg, Oral, As Directed, T AMY ONE TABLET BY MOUTH DIRECTED TAKE TWO TABLETS THE FIRST DOSE, THEN ONE TABLET DAILY UNTIL ALL TAKEN FOR URI, 0 total refill(s), Physician Stop (given inued ory TAB PKT 6 by Pharmac mouth) y Allergies, Adverse Reactions, Alerts Combined list of allergies from [facility] and [facility] facilities. It does not include entries that were removed or entered in error. Substance Category Reaction Severity Reaction Status Date Comments S ource type Reported CAPSAICIN Propensity Diarrhea Propensity active PAT to adverse to adverse 0 M. reactions reactions STARIN OSORIO to to [facility] substance substance (finding) (finding) capsaicin Food Diarrhea <not Food Active Ambul atory topical allergy (finding) entered> allergy Pharm acy Immunizations Combined list of available immunizations from the Department of Defense and Veterans Affairs facilities. Immunization Series Date Administered Site Reaction Lot CVX Drug St atus Comments Source Given By Number Code [employer] Manager INFLUENZA complet L [place] VACCINE, 2020 ed N [facility] QUADRIVALENT, CLINIC ADJUVANTED COVID-19 3 complet KYA NATHA (PFIZER), 2020 ed N M. MRNA, LNP-S, W AINWRI PF, 30 GHT MCG/0.3 ML VAM C DOSE COVID-19 2 complet PU BLIC (BuzzDoes), 2020 ed HEAL TH MRNA, LNP-S, S ERVICE PF, 30 MCG/0.3 ML DOSE COVID-19 1 complet PU BLIC (PFIZER), 2020 ed HEAL TH MRNA, LNP-S, S ERVICE PF, 30 MCG/0.3 ML DOSE INFLUENZA, complet JONATHA HIGH-DOSE, 2019 ed N M . QUADRIVALENT W AINWRI GHT [facility] INFLUENZA, complet [place] TRIVALENT, 2019 ed N V A ADJUVANTED CLI JANICE PNEUMOCOCCAL complet [place] POLYSACCHARID 2019 ed N [facility] PPV[facility]INIC Influenza, complet Influe nza Ambulat trivlanent, 2019 ed , or y adjuvanted, trivlane n Pharmac pf t, y adjuvante d, pf pneumococcal complet pneu mococ Ambulat polysaccharid 2019 ed rachel ory e, 23 valent polysac ch Pharmac aride, 23 y valent INFLUENZA, complet [place] HIGH DOSE 2018 ed N [facility] influenza, complet influe nza Ambulat seasonal,high 2018 ed , ory dose-pf seasonal, Ph armac high y dose-pf INFLUENZA, complet JONATHA HIGH DOSE 2017 ed N M. SEASONAL WAINW RI T [facility] influenza, complet influe nza Ambulat seasonal,high 2017 ed , ory dose-pf seasonal, Ph armac high y dose-pf INFLUENZA, complet [place] SEASONAL, 2016 ed N [facility] INJECTABLE, CL INIC PRESERVATIVE FREE influenza, complet influe nza Ambulat seasonal, 2016 ed , ory injectable-pf season al, Pharmac injectabl y e-pf INFLUENZA, complet [place] SEASONAL, 2014 ed N [facility] INJECTABLE, CL INIC PRESERVATIVE FREE PNEUMOCOCCAL complet [place] CONJUGATE PCV 2014 ed N [facility] influenza, complet influe nza Ambulat seasonal, 2014 ed , ory injectable-pf season al, Pharmac injectabl y e-pf pneumococcal complet pneu mococ Ambulat 13-valent 2014 ed rachel ory conjugate 13-valent Pharmac (PCV13) conjugate y (PCV13) ZOSTER LIVE complet [place] 2014 ed [facility] zoster complet zoster Amb ulat vaccine live 2014 ed vaccine ory live Pharmac y INFLUENZA, complet [place] SEASONAL, 2013 ed N [facility] INJECTABLE, CL INIC PRESERVATIVE FREE influenza, complet influe nza Ambulat seasonal, 2014 ed , ory injectable-pf season al, Pharmac injectabl y e-pf FLU,3 YRS complet Katherine ARZATE (HISTORICAL) 2012 ed [place] [facility] influenza complet influen za Ambulat virus 2012 ed virus ory vaccine, vaccine, Ph armac inactivated inactiva t y ed TDAP complet SHAR[place] TO 2012 ed [place] [facility] tetanus, complet tetanus, Ambulat diphtheria, 2012 ed diphther i ory acellular a, Phar mac pertu is acellular y pertussis FLU,3 YRS NEERAJ M 88 complet [place] (HISTORICAL) 2011 ed [place] [facility] influenza complet influen za Ambulat virus 2011 ed virus ory vaccine, vaccine, Ph armac inactivated inactiva t y ed FLU,3 YRS complet L CARITO (HISTORICAL) 2011 ed [facility] influenza complet influen za Ambulat virus 2012 ed virus ory vaccine, vaccine, Ph armac inactivated inactiva t y ed FLU,3 YRS 05/24/ SHAVONNE CALLES 88 complet [place] (HISTORICAL) 2010 A ed N [facility] influenza complet influen za Ambulat virus 2010 ed virus ory vaccine, vaccine, Ph armac inactivated inactiva t y ed influenza complet influen za Ambulat virus 2009 ed virus ory vaccine, vaccine, Ph armac inactivated inactiva t y ed INFLUENZA, complet JONATHA UNSPECIFIED 2008 ed N M. FORMULATION [facility] FLU,3 YRS 05/04/ TERESITA CASTREJON 88 complet JONATHA (HISTORICAL) 2007 ed N M. [facility] influenza complet influen za Ambulat virus 2007 ed virus ory vaccine, vaccine, Ph armac inactivated inactiva t y ed influenza complet influen za Ambulat virus 2006 ed virus ory vaccine, vaccine, Ph armac inactivated inactiva t y ed FLU,3 YRS complet Katherine ARZATE (HISTORICAL) 2006 ed N [facility] PNEUMOCOCCAL, 04/24/ EDGE,BUDDY 109 comp let JONATHA UNSPECIFIED 2004 ed N M. [facility]ATION [facility] pneumococcal complet pneu mococ Ambulat vaccine, 2004 ed rachel ory unspecified vaccine, Pharmac unspecifi y ed INFLUENZA, complet AVITIA-GR WHOLE 2000 ed ANDSTAF F [facility] PNEUMOCOCCAL complet Prev ious AVITIA-GR (HISTORICAL) 2000 ed history ANDSTAF on F [facility] pneumovax pneumococcal complet Resu lt Ambulat vaccine, 2000 ed Comment: or y unspecified Previous Pharmac history y on pneumovax influenza complet influen za Ambulat virus 2000 ed virus ory vaccine, vaccine, Ph armac whole virus whole y virus influenza complet Result Ambulat virus 2000 ed Comment: ory vaccine, None Pharm ac inactivated y INFLUENZA, complet None JONATHA UNSPECIFIED 2000 ed N [facility]. [facility] pneumococcal complet pneu mococ Ambulat vaccine, 1997 ed rachel ory unspecified vaccine, Pharmac unspecifi y ed PNEUMOCOCCAL, complet AVITIA-GR UNSPECIFIED 1997 ed AN DSTAF FORMULATION F [facility] TD(ADULT) 03/05/ STROEMEL,MATH 139 complet JONATHA UNSPECIFIED 1997 IAS M D O ed N M. FORM[facility] Td(adult) 139 complet Td(adul t) Ambulat unspecified 1997 ed unspecif i ory formulation ed Ph armac formulati y on INFLUENZA, 05/02/ PAMELA LOVE 88 complet JONATHA UNSPECIFIED 1996 R N ed N M. [facility] PNEUMOCOCCAL, IVAN,PAMELA R 109 comp let JONATHA UNSPECIFIED 1996 R N ed N M. [facility]ATION [facility] pneumococcal complet pneu mococ Ambulat vaccine, 1996 ed rachel ory unspecified vaccine, Pharmac unspecifi y ed influenza complet influen za Ambulat virus 1996 ed virus ory vaccine, vaccine, Ph armac inactivated inactiva t y ed INFLUENZA, 05/02/ MIRACLE PURCELL 88 comple t JONATHA UNSPECIFIED 1995 BANDAR M R N ed N M. [facility]ATION [facility] influenza complet influen za Ambulat virus 1995 ed virus ory vaccine, vaccine, Ph armac inactivated inactiva t y ed Results Combined list of recent chemistry, hematology and other laboratory results from Department of Defense and Veterans Affairs, ranging from 15 months to all on record, depending upon the facility. Order Results Value Reference Date Interpretation Specimen Commen ts Source Name Range Chemistr LDL Direct 68 mg/dL 0 - 129 10/08 N Amb ulator y y Pharmacy Chemistr TSH 1.310 0.300 - 10/08 N Ambulat or y m[iU]/mL 4.250 /2021 y Pharmacy Chemistr Cholestero 145 10/08 N Ambu lator y l Total mg/dL /2021 Pharmacy Chemistr HDL 63 mg/dL 10/08 N Ambula tor y Cholestero /2021 y l Pharmacy Chemistr Triglyceri 105 10/08 N Ambu lator y asia mg/dL /2021 Pharmacy Chemistr Non-HDL 82 mg/dL 10/08 N Ambula tor y Cholestero /2021 y l Pharmacy Chemistr Vitamin 594 232 - 1245 10/08 N Result Ambu lator y B12 pg/mL /2021 Comment: y High doses Pharm acy of Biotin supplements (>5 mg/day) may falsely increase result. Test specimens should be collected at least 8 hrs after last ingestion of high dose biotin. Chemistr ProBNP 251 0 - 124 03 H Result Ambulat or y pg/mL /2021 Comment: y High doses Pharm acy of Biotin supplements (>5 mg/day) may falsely decrease result. Test specimens should be collected at least 8 hours after the last ingestion of high dose biotin. Chemistr Glucose 96 mg/dL 71 - 109 10/08 N Ambul ator y Lvl /2021 y Pharmacy Chemistr BUN 23 mg/dL 7 - 23 10/08 N Ambula tor y y Pharmacy Chemistr Sodium 140 131 - 142 10/08 N Ambul ator y mmol/L /2021 Pharmacy Chemistr Potassium 4.7 3.6 - 5.4 10/08 N Amb ulator y Lvl mmol/L /2021 Pharmacy Chemistr Chloride 103 95 - 108 10/08 N Ambul ator y mmol/L /2021 y Pharmacy Chemistr CO2 28 21 - 32 10/08 N Ambulat or y mmol/L /2021 y Pharmacy Chemistr AGAP 14 7 - 21 10/08 N Ambulat or y mmol/L /2021 Pharmacy Chemistr Creatinine 0.8 0.7 - 1.2 10/08 N Am bulator y Level mg/dL /2021 Pharmacy Chemistr Calcium 9.9 8.4 - 10.5 10/08 N Ambu lator y mg/dL /2021 y Pharmacy Chemistr ALT 27 U/L 9 - 57 10/08 N Ambulat or y /2021 y Pharmacy Chemistr AST 25 U/L 14 - 44 / N Ambulat or y Pharmacy Chemistr Bilirubin 0.9 0.2 - 1.3 10/08 N Amb ulator y Total mg/dL /2021 Pharmacy Chemistr Alk Phos 60 U/L 45 - 129 / N Ambul ator y y Pharmacy Chemistr Albumin 4.2 g/dL 3.8 - 5.2 10/08 N Ambu lator y /2022 y Pharmacy Chemistr Protein 6.1 g/dL 5.8 - 7.9 10/08 N Ambu lator y Total /2021 Pharmacy Chemistr Globulin 1.9 g/dL 1.5 - 3.2 / N Amb ulator y /2021 Pharmacy Chemistr Hemoglobin 5.4 % 0.0 - 5.6 /30 N Am bulator y A1c /2021 Pharmacy Chemistr Vitamin D 37 ng/mL 30 - 100 10/08 N Result Amb ulator y 25 [place] /2021 Comment: y High doses Pharm acy of Biotin supplements (>5 mg/day) may falsely increase result. Test specimens should be collected at least 8 hrs after last ingestion of high dose biotin. Chemistr Ur Creat 76.1 40.0 - 10/08 N Ambula tor y mg/dL 278.0 /2021 Pharmacy Chemistr Ur <1.2 10/08 Ambulat or y Microalbum mg/dL /2021 in Pharmacy Chemistr Ur <15.8 0.0 - 30.0 10/08 N Ambu lator y Microalb/U mg/gCr /2021 y r Creat Pharmacy Ratio Chemistr eGFR CKD 96 10/08 N Ambula tor y EPI mL/min/ y .73m2 Pharmacy Chemistr Magnesium 2.1 1.6 - 2.6 10/08 N Amb ulator y Lvl mg/dL /2021 Pharmacy Hematolo Neutrophil 72.3 % 44.0 - 10/08 N Ambu lator gy % Auto 74.0 /2021 Pharmacy Hematolo Lymphocyte 18.1 % 15.0 - 10/08 N Ambu lator gy % Auto 42.0 /2021 Pharmacy Hematolo Monocyte % 8.2 % 4.0 - 13.0 /30 N A mbulator gy Auto /2021 Pharmacy Hematolo Eosinophil 0.0 % 0.0 - 7.0 03/30 N Am bulator gy % Auto /2021 Pharmacy Hematolo Basophil % 0.3 % 0.0 - 2.0 03/30 N Am bulator gy Auto /2021 Pharmacy Hematolo Imm. 1.1 % 0.0 - 0.9 03/30 H Ambul ator gy Granulocyt /2021 y e % Pharmacy Hematolo Neutro 8.20 1.20 - 0330 H Ambulat or gy Absolute K/mcL 7.00 /2021 y Pharmacy Hematolo Lymph 2.05 0.60 - 0330 N Ambulat or gy Absolute K/mcL 3.40 /2021 y Pharmacy Hematolo Hardin 0.93 0.20 - 0330 N Ambulat or gy Absolute K/mcL 1.00 /2021 y Pharmacy Hematolo Eos 0.01 0.00 - 30 N Ambulat or gy Absolute K/mcL 0.50 /2021 y Pharmacy Hematolo Baso 0.03 0.00 - 30 N Ambulat or gy Absolute K/mcL 0.20 /2021 y Pharmacy Hematolo Imm. 0.13 0.00 - 10/08 H Ambulat or gy Granulocyt K/mcL 0.07 /2021 y e Absolute Pharm acy Hematolo WBC 11.3 3.0 - 10.6 30 H Ambu lator gy K/mcL /2021 y Pharmacy Hematolo RBC 4.95 3.86 - 10/08 N Ambulat or gy x10^6/mc 5.56360 /2021 y L Pharmacy Hematolo Hemoglobin 14.2 11.8 - 10/08 N Ambu lator gy g/dL 17.1 /2021 y Pharmacy Hematolo Hematocrit 43.8 % 36.0 - 10/08 N Ambu lator gy 51.0 /2021 y Pharmacy Hematolo MCV 88.5 fL 81.0 - 10/08 N Ambulat or gy 102.0 /2021 y Pharmacy Hematolo MCH 28.7 pg 27.0 - 10/08 N Ambulat or gy 31.0 /2021 y Pharmacy Hematolo MCHC 32.4 32.0 - 30 N Ambulat or gy g/dL 36.0 /2021 y Pharmacy Hematolo RDW CV 17 10/08 Ambulat or gy /2021 y Pharmacy Hematolo Platelets 329 150 - 400 10/08 N Amb ulator gy K/mcL /2021 Pharmacy Hematolo Differenti Auto 10/08 N Ambu lator gy al? (10/08/21 9:29 AM) /2021 Pharmacy Hematolo MPV 13 fL 7 - 10 30 H Ambulat or gy /2021 Pharmacy Urinalys UA Glucose Negative 10/08 N Amb ulator is (10/08/21 9:29 AM) /2021 Pharmacy [facility] UA Protein Negative 10/08 N Amb ulator is (10/08/21 9:29 AM) /2021 Pharmacy [facility]inal[facility] UA Bili Negative 10/08 N Ambula tor is (10/08/21 9:29 AM) /2021 Pharmacy Urinal[facility] UA Normal 10/08 N Ambulat or is Urobilinog (10/08/21 9:29 AM) /2021 en Pharmacy Urinal[facility] UA pH 7.0 10/08 N Ambulat or is (10/08/21 9:29 AM) /2021 Pharmacy [facility]inal[facility] UA Blood Negative 10/08 N Ambul ator is (10/08/21 9:29 AM) /2021 Pharmacy [facility] UA Ketones Negative 10/08 N Amb ulator is (10/08/21 9:29 AM) /2021 Pharmacy [facility] UA Nitrite Negative 10/08 N Amb ulator is (10/08/21 9:29 AM) /2021 Pharmacy [facility] UA Leuk Negative 10/08 N Ambula tor is Esterase (10/08/21 9:29 AM) /2021 Pharmacy [facility] UA Clarity Clear 10/08 N Ambu lator is (10/08/21 9:29 AM) /2021 Pharmacy [facility] UA Spec 1.023 1.003 - 10/08 N Ambulat or is [place] 1.030 /2021 Pharmacy [facility]inal[facility] UA Color Light-Yellow 10/08 N A mbulator is (10/08/21 9:29 AM) /2021 Pharmacy [facility] UA RBC 0 /HPF 0 - 3 10/08 N Ambulat or is /2021 Pharmacy [facility] UA WBC <1 /HPF 0 - 4 10/08 N Ambulat or is /2021 Pharmacy [facility] UA None 10/08 N Ambulat or is Bacteria (10/08/21 9:29 AM) /2021 Pharmacy [facility] UA Epi 0 /HPF 0 - 4 10/08 N Ambulat or is Squam /2021 Pharmacy Urinal[facility] UA Mucous Rare 10/08 N Ambul ator is (10/08/21 9:29 AM) /2021 Pharmacy [facility]inal[facility] UA Uric None 10/08 Ambulat or is Acid /2021 [facility] C-REACTI C REACTIVE 2.8 0 - 4.99 08/27 Specimen Ty pe: SERUM LEWISDELPHINE VE PROTEIN /2020 Comment: Signif icantly decreased CRP values may be obtained from samples taken from patients who have been treated with carboxypenicillines. CRP was incorrectly reported in mg/dL Results have been co nv [facility] PROTEIN [MASS/VOLU erted to mg/L [facility] 05/27/21 C-REACTIVE PROTEIN reported incorrectly as 0.28 by [[id number]]. Changed to 0.00 on May 27, 2021@12:35 by [[id number]]. CRP incorrectly reported in mg/dL Results were ME] IN converted to mg/ L Disregard amendments made on 05/27/21 ([facility] 05/28/21) C-REACTIVE PROTEIN reported incorrectly as 0.00 by [[id number]]. Changed to 2.8 on May 28, 2021@12:53 by [[id number]]. SERUM OR Ordering Provi jarett: JUAN STRONG PLASMA Report Released Date/Time: Aug 27, 2020 09:04 AM Reporting Lab: PAT Canela [address] SARAH SAMANTHAZuleika [facility] [address] Performing Lab: PAT Canela [address] JEMALAsif SINGHZuleika [facility] [address] CBC & LEUKOCYTES 6.6 3.0 - 10.6 08/27 Specimen T ype: BLOOD JUDITH VALADEZ [#/VOLUME] /2020 No comment e ntered. [facility] (WITH IN BLOOD Ordering Prov ider: JUNA STRONG DIFF) BY Report Released Date/Time: Aug 05, 2019 09:52 AM AUTOMATED Reporting Lab : PAT Canela [address] [facility] R[address] OMAR [facility] [address] Performing Lab: PAT Canela [address] RIVE SAMANTHAZuleika [facility] [address] CBC & ERYTHROCYT 4.76 3.86 - 08/27 Specimen Type : BLOOD JUDITH VALADEZ ES 5.70 No comment ente red. [facility] (WITH [#/VOLUME] Ordering Pr ovider: JUAN STRONG) IN BLOOD Report Release d Date/Time: Aug 05, 2019 09:52 AM BY Reporting Lab: PAT Canela [facility] AUTOMATED [facility] OAMR [facility] [address] COUNT Performing Lab: PAT Canela [address] Zaida [facility] [address] CBC & HEMOGLOBIN 13.8 11.8 - 08/27 Specimen Type : BLOOD [place] MORPHOLO [MASS/VOLU 17.1 No comment e ntered. [facility] (WITH ME] IN Ordering Provi jarett: JUAN STRONG) BLOOD Report Released Date/Time: Aug 05, 2019 09:52 AM Reporting Lab: PAT Canela [address] SARAH [facility] [address] Performing Lab: PAT Canela [address] SARAH [place] [facility] [address] CBC & HEMATOCRIT 42.8 36 - 51 08/27 Specimen Type : BLOOD [place] MORPHOLO [VOLUME /2020 No comment ente red. [facility] (WITH FRACTION] Ordering Pro vider: JUAN STRONG) OF BLOOD Report Release d Date/Time: Aug 05, 2019 09:52 AM BY Reporting Lab: PAT Canela [address] [address] COUNT Performing Lab: PAT Canela [address] SARAH [place] [facility] [address] CBC & MCV 89.9 81 - 102 08/27 Specimen Type: BLOOD [place] MORPHOLO [ENTITIC /2020 No comment ent ered. [facility] (WITH VOLUME] BY Ordering Pr ovider: JUAN STRONG) AUTOMATED Report Releas ed Date/Time: Aug 05, 2019 09:52 AM COUNT Reporting Lab: PAT Canela [address] SARAH [facility] [address] Performing Lab: PAT Canela [address] [place] [address] CBC & MCH 29.0 27 - 31 08/27 Specimen Type: B JOSE VALADEZ [ENTITIC /2020 No comment ent ered. [facility] (WITH MASS] BY Ordering Prov ider: JUAN STRONG) AUTOMATED Report Releas ed Date/Time: Aug 05, 2019 09:52 AM COUNT Reporting Lab: PAT Canela [address] [place] [address] Performing Lab: PAT Canela [address] [place] [address] CBC & MCHC 32.2 32 - 36 08/27 Specimen Type: B JOSE VALADEZ [MASS/VOLU /2020 No comment e ntered. [facility] (WITH ME] BY Ordering Provi jarett: JUAN STRONG) AUTOMATED Report Releas ed Date/Time: Aug 05, 2019 09:52 AM COUNT Reporting Lab: PAT Canela [address] [place] [address] Performing Lab: PAT Canela [address] [place] [address] CBC & PLATELETS 209 150 - 400 08/27 Specimen Typ e: BLOOD JUDITH VALADEZ [#/VOLUME] /2020 No comment e ntered. [facility] (WITH IN BLOOD Ordering Prov ider: JUAN STRONG) BY Report Released Date/Time: Aug 05, 2019 09:52 AM AUTOMATED Reporting Lab : PAT Canela [address] [place] [address] Performing Lab: PAT Canela [address] SARAH [facility] [address] CBC & ERYTHROCYT 15.5 11.2 - 08/27 Specimen Type : BLOOD JUDITH MARIONOLO E 16. No comment ente red. [facility] (WITH DISTRIBUTI Ordering Pr ovider: JUAN STRONG DIFF) ON WIDTH Report Release d Date/Time: Aug 05, 2019 09:52 AM [RATIO] BY Reporting La b: PAT Canela [facility] AUTOMATED [facility] [address] COUNT Performing Lab: PAT Canela [address] [facility] [address] CBC & NEUTROPHIL 47.9 44 - 74 08/27 Specimen Type : BLOOD [place] MORPHOLO S/ No comment ente red. [facility] (WITH LEUKOCYTES Ordering Pr ovider: STRONGJUAN E DIFF) IN BLOOD Report Release d Date/Time: Aug 05, 2019 09:52 AM BY Reporting Lab: PAT Canela [facility] AUTOMATED [address] [place] [phone] COUNT Performing Lab: PAT Canela [address] [address] CBC & LYMPHOCYTE 34.9 15 - 42 08/27 Specimen Type : BLOOD [place] MORPHOLO No comment ente red. [facility] (WITH LEUKOCYTES Ordering Pr ovider: STRONGJUAN E DIFF) IN BLOOD Report Release d Date/Time: Aug 05, 2019 09:52 AM BY Reporting Lab: PAT Canela [facility] AUTOMATED [facility] [address] COUNT Performing Lab: PAT Canela [address] [facility] [address] CBC & MONOCYTES/ 12.0 4 - 13 08/27 Specimen Type : BLOOD [place] MORPHOLO No comment ente red. [facility] (WITH LEUKOCYTES Ordering Pr ovider: STRONGJUAN E DIFF) IN BLOOD Report Release d Date/Time: Aug 05, 2019 09:52 AM BY Reporting Lab: PAT Canela [facility] AUTOMATED [facility] [address] COUNT Performing Lab: PAT Canela [address] [facility] [address] CBC & EOSINOPHIL 3.6 0 - 7 08/27 Specimen Type : BLOOD [place] MORPHOLO S No comment ente red. [facility] (WITH LEUKOCYTES Ordering Pr ovider: STRONG,JUAN E DIFF) IN BLOOD Report Release d Date/Time: Aug 05, 2019 09:52 AM BY Reporting Lab: PAT Canela [facility] AUTOMATED [facility] [address] COUNT Performing Lab: PAT Canela [address] [facility] HOSPITALAsif [facility] [address] CBC & BASOPHILS/ 1.1 0 - 2 08/27 Specimen Type : BLOOD [place] MORPHOLO 100 No comment ente red. [facility] (WITH LEUKOCYTES Ordering Pr ovider: STRONG,JUAN E DIFF) IN BLOOD Report Release d Date/Time: Aug 05, 2019 09:52 AM BY Reporting Lab: PAT Canela [facility] AUTOMATED [facility] [address] COUNT Performing Lab: PAT Canela [address] [facility] [address] CBC & NEUTROPHIL 3.2 1.2 - 7.0 08/27 Specimen Ty pe: BLOOD [place] MORPHOLO S No comment ente red. [facility] (WITH [#/VOLUME] Ordering Pr ovider: STRONG,JUAN E DIFF) IN BLOOD Report Release d Date/Time: Aug 05, 2019 09:52 AM BY Reporting Lab: PAT Canela [facility] AUTOM[facility] [address] COUNT Performing Lab: PAT Canela [address] [facility] [address] CBC & LYMPHOCYTE 2.3 0.6 - 3.4 08/27 Specimen Ty pe: BLOOD [place] MORPHOLO No comment ente red. [facility] (WITH [#/VOLUME] Ordering Pr ovider: STRONG,JUAN E DIFF) IN BLOOD Report Release d Date/Time: Aug 05, 2019 09:52 AM BY Reporting Lab: PAT Canela [facility] AUTOMATED [facility] [address] COUNT Performing Lab: PAT Canela [address] SARAH [facility] [address] CBC & MONOCYTES 0.8 0.2 - 1.0 08/27 Specimen Typ e: BLOOD [place] MORPHOLO [#/VOLUME] /2020 No comment e ntered. [facility] (WITH IN BLOOD Ordering Prov ider: JUAN STRONG E DIFF) BY Report Released Date/Time: Aug 05, 2019 09:52 AM AUTOMATED Reporting Lab : PAT Canela [facility] COUNT [address] SAR[place] [facility] [address] Performing Lab: PAT Canela [facility] [address] SAR[place] [facility] [address] CBC & EOSINOPHIL 0.2 0.0 - 0.5 08/27 Specimen Ty pe: BLOOD [place] MORPHOLO S /2020 No comment ente red. [facility] (WITH [#/VOLUME] Ordering Pr ovider: JUAN STRONG DIFF) IN BLOOD Report Release d Date/Time: Aug 05, 2019 09:52 AM BY Reporting Lab: PAT Canela [facility] AUTOMATED [address] OMAR [facility] [address] COUNT Performing Lab: PAT Canela [facility] [address] [place] [facility] [address] CBC & BASOPHILS 0.1 0.0 - 0.2 08/27 Specimen Typ e: BLOOD [place] MORPHOLO [#/VOLUME] /2020 No comment e ntered. [facility] (WITH IN BLOOD Ordering Prov ider: JUAN STRONG DIFF) BY Report Released Date/Time: Aug 05, 2019 09:52 AM AUTOMATED Reporting Lab : PAT Canela [facility] COUNT [address] [place] [facility] [address] Performing Lab: PAT Canela [facility] [address] [place] [facility] [address] CBC & IMMATURE 0.5 0 - 0.9 08/27 Specimen Type: BLOOD [place]PH[place] GRANULOCYT /2020 No comment e ntered. [facility] (WITH ES/100 Ordering Provi jarett: JUAN STRONG DIFF) LEUKOCYTES Report Relea sed Date/Time: Aug 05, 2019 09:52 AM IN BLOOD Reporting Lab: PAT Canela [facility] [address] [place] [address] AUTOMATED Performing La b: PAT Canela [facility] [address] [place] [address] CBC & IMMATURE 0.03 0 - 0.07 08/27 Specimen Type: BLOOD LEWISTON MORPHOLO GRANULOCYT /2020 No comment e ntered. [facility] (WITH ES Ordering Provi jarett: JUAN STRONG E DIFF) [#/VOLUME] Report Relea sed Date/Time: Aug 05, 2019 09:52 AM IN BLOOD Reporting Lab: PAT Can[facility] [address] [place] [address] AUTOMATED Performing La b: PAT Canela [facility] [address] [place] [address] COMPREHE GLUCOSE 98 71 - 109 08/27 Specimen Type: SERUM LEWIST[place] NSIVE [MASS/VOLU /2020 Comment: LDL Direct Adult Reference Range: Optimal <100 mg/dL Near optimal/above optimal 100-129 mg/dL Borderline high 130-159 mg/dL High 160-189 mg/dL Very High 190 mg/dL Note that non-fasting results may be slightly lower than fasting results. [facility] METABOLI ME] IN Ordering Provi jarett: JUAN STRONG PANEL SERUM OR Report Release d Date/Time: Aug 05, 2019 09:52 AM PLASMA Reporting Lab: PAT Canela [address] [place] [address] Performing Lab: PAT Canela [place] [address] [place] [address] COMPREHE UREA 14 7 - 23 08/27 Specimen Type: SERUM [place] NSIVE NITROGEN Comment: LDL D irect Adult Reference Range: Optimal <100 mg/dL Near optimal/above optimal 100-129 mg/dL Borderline high 130-159 mg/dL High 160-189 mg/dL Very High 190 mg/dL Note that non-fasting results may be slightly lower than fasting results. [facility] [MASS/VOLU Ordering Pr ovider: JUAN STRONG PANEL ME] IN Report Released Date/Time: Aug 05, 2019 09:52 AM SERUM OR Reporting Lab: PAT Canela [address] [place] [address] Performing Lab: PAT Hilton [address] [place] [address] COMPREHE CREATININE 0.8 .7 - 1.2 08/27 Specimen Ty pe: SERUM [place] NSIVE [MASS/VOLU /2020 Comment: LDL Direct Adult Reference Range: Optimal <100 mg/dL Near optimal/above optimal 100-129 mg/dL Borderline high 130-159 mg/dL High 160-189 mg/dL Very High 190 mg/dL Note that non-fasting results may be slightly lower than fasting results. [facility] ME] IN Ordering Provi jarett: JUAN STRONG PANEL SERUM OR Report Release d Date/Time: Aug 05, 2019 09:52 AM PLASMA Reporting Lab: PAT Hilton [address] [place] [address] Performing Lab: PAT Hilton [address] [place] [address] COMPREHE SODIUM 139 131 - 142 08/27 Specimen Type : SERUM [place] NSIVE [MOLES/VOL /2020 Comment: LDL Direct Adult Reference Range: Optimal <100 mg/dL Near optimal/above optimal 100-129 mg/dL Borderline high 130-159 mg/dL High 160-189 mg/dL Very High 190 mg/dL Note that non-fasting results may be slightly lower than fasting results. [facility] UME] IN Ordering Provi jarett: JUAN STRONG PANEL SERUM OR Report Release d Date/Time: Aug 05, 2019 09:52 AM PLASMA Reporting Lab: PAT Canela [address] [address] Performing Lab: PAT Hilton [address] [place] [address] COMPREHE POTASSIUM 4.0 3.6 - 5.4 08/27 Specimen Ty pe: SERUM [place] NSIVE [MOLES/VOL /2020 Comment: LDL Direct Adult Reference Range: Optimal <100 mg/dL Near optimal/above optimal 100-129 mg/dL Borderline high 130-159 mg/dL High 160-189 mg/dL Very High 190 mg/dL Note that non-fasting results may be slightly lower than fasting results. [facility] UME] IN Ordering Provi jarett: JUAN STRONG PANEL SERUM OR Report Release d Date/Time: Aug 05, 2019 09:52 AM PLASMA Reporting Lab: PAT Canela [address] [place] [address] Performing Lab: PAT Canela [address] [place] [address] COMPREHE CHLORIDE 104 95 - 108 08/27 Specimen Type : SERUM [place] NSIVE [MOLES/VOL Comment: LDL Direct Adult Reference Range: Optimal <100 mg/dL Near optimal/above optimal 100-129 mg/dL Borderline high 130-159 mg/dL High 160-189 mg/dL Very High 190 mg/dL Note that non-fasting results may be slightly lower than fasting results. [facility] UME] IN Ordering Provi jarett: JUAN STRONG PANEL SERUM OR Report Release d Date/Time: Aug 05, 2019 09:52 AM PLASMA Reporting Lab: PAT Canela [address] [place] [address] Performing Lab: PAT Canela [address] [place] [address] COMPREHE "CARBON 28 21 - 32 08/27 Specimen Type: SERUM [place] NSIVE Comment: LDL D irect Adult Reference Range: Optimal <100 mg/dL Near optimal/above optimal 100-129 mg/dL Borderline high 130-159 mg/dL High 160-189 mg/dL Very High 190 mg/dL Note that non-fasting results may be slightly lower than fasting results. [facility] TOTAL Ordering Provi jarett: JUAN STRONG PANEL [MOLES/VOL Report Relea sed Date/Time: Aug 05, 2019 09:52 AM UME] IN Reporting Lab: PAT Canela [facility] SERUM OR [address] [place], [place] [address] [address] PLASMA" Performing Lab: PAT Canela [address] [place] [address] COMPREHE CALCIUM 10.0 8.4 - 10.5 08/27 Specimen Typ e: SERUM [place] NSIVE [MASS/VOLU /2020 Comment: LDL Direct Adult Reference Range: Optimal <100 mg/dL Near optimal/above optimal 100-129 mg/dL Borderline high 130-159 mg/dL High 160-189 mg/dL Very High 190 mg/dL Note that non-fasting results may be slightly lower than fasting results. [facility] [place]] IN Ordering Provi jarett: JUAN STRONG PANEL SERUM OR Report Release d Date/Time: Aug 05, 2019 09:52 AM PLASMA Reporting Lab: PAT Canela [address] [place] [address] Performing Lab: PAT Canela [address] [place] [address] COMPREHE PROTEIN 6.2 5.8 - 7.9 08/27 Specimen Type : SERUM [place] NSIVE [MASS/VOLU /2020 Comment: LD L Direct Adult Reference Range: Optimal <100 mg/dL Near optimal/above optimal 100-129 mg/dL Borderline high 130-159 mg/dL High 160-189 mg/dL Very High 190 mg/dL Note that non-fasting results may be slightly lower than fasting results. [facility] [place]] IN Ordering Provi jarett: JUAN STRONG PANEL SERUM OR Report Release d Date/Time: Aug 05, 2019 09:52 AM PLASMA Reporting Lab: PAT Canela [address] [place] [address] Performing Lab: PAT Canela [address] [place] [address] COMPREHE ALBUMIN 4.3 3.8 - 5.2 08/27 Specimen Type : SERUM [place] NSIVE [MASS/VOLU /2020 Comment: LDL Direct Adult Reference Range: Optimal <100 mg/dL Near optimal/above optimal 100-129 mg/dL Borderline high 130-159 mg/dL High 160-189 mg/dL Very High 190 mg/dL Note that non-fasting results may be slightly lower than fasting results. [facility] ME] IN Ordering Provi jarett: JUAN STRONG PANEL SERUM OR Report Release d Date/Time: Aug 05, 2019 09:52 AM PLASMA Reporting Lab: PAT AlvaradoDeidre [address] [place] [address] Performing Lab: PAT AlvaradoDeidre [address] [place] [address] COMPREHE GLOBULIN 1.9 1.5 - 3.2 08/27 Specimen Typ e: SERUM [place] NSIVE [MASS/VOLU /2020 Comment: LDL Direct Adult Reference Range: Optimal <100 mg/dL Near optimal/above optimal 100-129 mg/dL Borderline high 130-159 mg/dL High 160-189 mg/dL Very High 190 mg/dL Note that non-fasting results may be slightly lower than fasting results. [facility] ME] IN Ordering Provi jarett: JUAN STRONG PANEL SERUM Report Released Date/Time: Aug 05, 2019 09:52 AM Reporting Lab: PAT AlvaradoDeidre [address] [place] [address] Performing Lab: PAT Hilton [address] [place] [address] COMPREHE ASPARTATE 37 14 - 44 08/27 Specimen Type : SERUM [place] NSIVE AMINOTRANS Comment: LDL Direct Adult Reference Range: Optimal <100 mg/dL Near optimal/above optimal 100-129 mg/dL Borderline high 130-159 mg/dL High 160-189 mg/dL Very High 190 mg/dL Note that non-fasting results may be slightly lower than fasting results. [facility] FERASE Ordering Provi jarett: JUAN STRONG PANEL [ENZYMATIC Report Relea sed Date/Time: Aug 05, 2019 09:52 AM ACTIVITY/V Reporting La b: PAT Canela [facility] OLUME] IN [address] [facility] [address] SERUM OR Performing Lab : PAT Canela [facility] PLASMA [address] [facility] [place] [facility] [address] COMPREHE ALANINE 31 9 - 57 08/27 Specimen Type: SERUM [place] NSIVE AMINOTRANS /2020 Comment: LDL Direct Adult Reference Range: Optimal <100 mg/dL Near optimal/above optimal 100-129 mg/dL Borderline high 130-159 mg/dL High 160-189 mg/dL Very High 190 mg/dL Note that non-fasting results may be slightly lower than fasting results. [facility] FERASE Ordering Provi jarett: JUAN STRONG PANEL [ENZYMATIC Report Relea sed Date/Time: Aug 05, 2019 09:52 AM ACTIVITY/V Reporting La b: PAT Canela [facility] OLUME] IN [address] [facility] [address] SERUM OR Performing Lab : PAT Canela [facility] PLASMA [address] [facility] [address] COMPREHE ALKALINE 48 45 - 129 08/27 Specimen Type : SERUM [place] NSIVE PHOSPHATAS /2020 Comment: LDL Direct Adult Reference Range: Optimal <100 mg/dL Near optimal/above optimal 100-129 mg/dL Borderline high 130-159 mg/dL High 160-189 mg/dL Very High 190 mg/dL Note that non-fasting results may be slightly lower than fasting results. [facility] E Ordering Provi jarett: JUAN STRONG PANEL [ENZYMATIC Report Relea sed Date/Time: Aug 05, 2019 09:52 AM ACTIVITY/V Reporting La b: PAT Canela [facility]] IN [address] [facility] [address] SERUM OR Performing Lab : PAT Canela [facility] PLASMA [address] Zaida [facility] [place] [facility] [address] COMPREHE BILIRUBIN. 0.7 0.2 - 1.3 08/27 Specimen T ype: SERUM [place] NSIVE TOTAL /2020 Comment: LDL Di rect Adult Reference Range: Optimal <100 mg/dL Near optimal/above optimal 100-129 mg/dL Borderline high 130-159 mg/dL High 160-189 mg/dL Very High 190 mg/dL Note that non-fasting results may be slightly lower than fasting results. [facility] [MASS/VOLU Ordering Pr ovider: JUAN STRONG PANEL ME] IN Report Released Date/Time: Aug 05, 2019 09:52 AM SERUM OR Reporting Lab: PAT Canela [facility] PLASMA [address] SAR[address] [place] [facility] [address] Performing Lab: PAT AlvaradoDeidre [address] [facility] [facility] [address] COMPREHE GLOMERULAR 96.1 60 08/27 Specimen Typ e: SERUM [place] NSIVE FILTRATION /2020 Comment: LDL Direct Adult Reference Range: Optimal <100 mg/dL Near optimal/above optimal 100-129 mg/dL Borderline high 130-159 mg/dL High 160-189 mg/dL Very High 190 mg/dL Note that non-fasting results may be slightly lower than fasting results. [facility] RATE/1.73 Ordering Pro vider: JUAN STRONG PANEL SQ Report Released Date/Time: Aug 05, 2019 09:52 AM MARIE Reporting La b: PAT Canela [facility] D [VOLUME [address] [facility] [address] RATE/AREA] Performing L ab: PAT Canela [facility] IN SERUM [address] [facility] [address] OR PLASMA BY CREATININE -BASED FORMULA (MDRD) COMPREHE ANION GAP 11 7 - 21 08/27 Specimen Type : SERUM LEWISDELPHINE NSIVE 4 IN SERUM /2020 Comment: LDL Direct Adult Reference Range: Optimal <100 mg/dL Near optimal/above optimal 100-129 mg/dL Borderline high 130-159 mg/dL High 160-189 mg/dL Very High 190 mg/dL Note that non-fasting results may be slightly lower than fasting results. [facility] OR PLASMA Ordering Pro vider: JUAN STRONG PANEL Report Released Date/Time: Aug 05, 2019 09:52 AM Reporting Lab: PAT Canela [address] [place] [facility] [address] Performing Lab: PAT M. [facility] [address] [place] [address] COMPREHE "GLOMERULA >90 90 08/27 Specimen Typ e: SERUM [place] NSIVE R /2020 Comment: LDL Di rect Adult Reference Range: Optimal <100 mg/dL Near optimal/above optimal 100-129 mg/dL Borderline high 130-159 mg/dL High 160- 189 mg/dL Very High 190 mg/dL Note that non-fasting results may be slightly lower than fasting results. [facility] FILTRATION Ordering Pr ovider: JUAN STRONG PANEL RATE/1.73 Report Releas ed Date/Time: Aug 05, 2019 09:52 AM SQ Reporting Lab: PAT Canela [facility] Alvarado.PREDICTE [address] [place] [address] D [VOLUME Performing La b: PAT Canela [facility] RATE/AREA] [address] [place] [address] IN SERUM, PLASMA OR BLOOD BY CREATININE -BASED FORMULA (CKD-EPI)" LIPID CHOLESTERO 130 <199 - 199 08/27 Specimen T ype: SERUM [place] PANEL L Comment: LDL Di rect Adult Reference Range: Optimal <100 mg/dL Near optimal/above optimal 100-129 mg/dL Borderline high 130-159 mg/dL High 160- 189 mg/dL Very High 190 mg/dL Note that non-fasting results may be slightly lower than fasting results. [facility] [MASS/VOLU Ordering Pro vider: JUAN STRONG] IN Report Released Date/Time: Aug 05, 2019 09:52 AM SERUM OR Reporting Lab: PAT Canela [facility] PLASMA [address] [place] [address] Performing Lab: PAT Canela [facility] [address] [place] [address] LIPID TRIGLYCERI 134 <149 - 149 08/27 Specimen T ype: SERUM [place] PANEL DE Comment: LDL Di rect Adult Reference Range: Optimal <100 mg/dL Near optimal/above optimal 100-129 mg/dL Borderline high 130-159 mg/dL High 160-189 mg/dL Very High 190 mg/dL Note that non-fasting results may be slightly lower than fasting results. [facility] [MASS/VOLU Ordering Pro vider: JUAN STRONG] IN Report Released Date/Time: Aug 05, 2019 09:52 AM SERUM OR Reporting Lab: PAT Canela [facility] PLASMA [address] [place] [address] Performing Lab: PAT Hilton [address] [place] [address] LIPID CHOLESTERO 49 40 08/27 Specimen Type : SERUM [place] PANEL L IN HDL /2020 Comment: LDL D irect Adult Reference Range: Optimal <100 mg/dL Near optimal/above optimal 100-129 mg/dL Borderline high 130-159 mg/dL High 160-189 mg/dL Very High 190 mg/dL Note that non-fasting results may be slightly lower than fasting results. [facility] [MASS/VOLU Ordering Pro vider: JUAN STRONG] IN Report Released Date/Time: Aug 05, 2019 09:52 AM SERUM OR Reporting Lab: PAT Hilton [facility] PLASMA [address] [place] [address] [place] [address] Performing Lab: PAT Hilton [address] [place] [address] LIPID CHOLESTERO 81 <130 - 130 08/27 Specimen T ype: SERUM [place] PANEL L NON HDL /2020 Comment: LDL Direct Adult Reference Range: Optimal <100 mg/dL Near optimal/above optimal 100-129 mg/dL Borderline high 130-159 mg/dL High 160-189 mg/dL Very High 190 mg/dL Note that non-fasting results may be slightly lower than fasting results. [facility] [MASS/VOLU Ordering Pro vider: JUAN STRONG] IN Report Released Date/Time: Aug 05, 2019 09:52 AM SERUM OR Reporting Lab: PAT Caneal [facility] [place] [address] Performing Lab: PAT AlvaradoDeidre [place] [address] [place] [address] LIPID CHOLESTERO 66 0 - 129 02/16 Specimen Type : SERUM LE[place] PANEL L IN LDL /2020 Comment: LDL D irect Adult Reference Range: Optimal <100 mg/dL Near optimal/above optimal 100-129 mg/dL Borderline high 130-159 mg/dL High 160-189 mg/dL Very High 190 mg/dL Note that non-fasting results may be slightly lower than fasting results. [facility] [MASS/VOLU Ordering Pro vider: JUAN STRONG [place]] IN Report Released Date/Time: Aug 05, 2019 09:52 AM SERUM OR Reporting Lab: PAT Canela [facility] PLASMA BY [address] [place] [address] [facility] [address] DIRECT Performing Lab: PAT Canela [facility] ASSAY [address] [place] [address] SAR[place] [facility] [address] MAGNESIU MAGNESIUM 1.6 1.6 - 2.6 08/27 Specimen Ty pe: SERUM [place] M [MASS/VOLU /2020 Comment: LDL Direct Adult Reference Range: Optimal <100 mg/dL Near optimal/above optimal 100-129 mg/dL Borderline high 130-159 mg/dL High 160-189 mg/dL Very High 190 mg/dL Note that non-fasting results may be slightly lower than fasting results. [facility]] IN Ordering Provid er: JUAN STRONG SERUM OR Report Release d Date/Time: Aug 05, 2019 09:52 AM PLASMA Reporting Lab: PAT Canela [address] [facility] [address] Performing Lab: PAT Canela [address] SARAH [place] [facility] [address] PROSTATE PROSTATE 0.644 0 - 4.00 08/27 Specimen Type : SERUM [place] SPECIFIC SPECIFIC /2020 Comment: High doses of Biotin supplements (>5 mg/day) may falsely increase Vitamin B-12, Vitamin D (25OH), Free T4, and Folate results. Test specimens should be collected at least 8 hrs after [facility] st ingestion of high dose biotin. High doses of Biotin supplements (>5 mg/day) may falsely decrease Total PSA, Free PSA, Pro-BNP, AFP, C-Peptide and Ferritin results. Test specimens should be col [MASS/VOLU lected at gurwinder [facility] 8 hours after the last ingestion of high dose biotin. ME] IN Ordering Provid er: JUAN STRONG SERUM OR Report Release d Date/Time: Aug 05, 2019 09:52 AM PLASMA Reporting Lab: PAT AlvaradoDeidre [address] [place] [address] Performing Lab: PAT Canela [address] [place] [address] THYROID THYROTROPI 1.47 0.300 - 08/27 Specimen Type : SERUM [place] STIMULAT N 4. Comment: High doses of Biotin supplements (>5 mg/day) may falsely increase Vitamin B-12, Vitamin D (25OH), Free T4, and Folate results. Test specimens should be collected at least 8 hrs after [facility] ING [UNITS/VOL st ingestion of high dose biotin. High doses of Biotin supplements (>5 mg/day) may falsely decrease Total PSA, Free PSA, Pro-BNP, AFP, C-Peptide and Ferritin results. Test specimens should be col HORMONE UME] IN lected at least 8 hours after the last ingestion of high dose biotin. SERUM OR Ordering Provi jarett: JUAN STRNOG PLASMA Report Released Date/Time: Aug 05, 2019 09:52 AM Reporting Lab: PAT AlvaradoDeidre [address] [place] [address] Performing Lab: PAT Canela [address] [place] [address] URIC URATE 4.2 3.5 - 8.5 08/27 Specimen Type: SERUM [place] ACID [MASS/VOLU /2020 Comment: LDL Direct Adult Reference Range: Optimal <100 mg/dL Near optimal/above optimal 100-129 mg/dL Borderline high 130-159 mg/dL High 160-189 mg/dL Very High 190 mg/dL Note that non-fasting results may be slightly lower than fasting results. [facility] ME] IN Ordering Provid er: JUAN STRONG SERUM OR Report Release d Date/Time: Aug 05, 2019 09:52 AM PLASMA Reporting Lab: PAT Canela [address] [place]AH [facility] [address] Performing Lab: PAT Canela [address] [place] [facility] [address] VITAMIN COBALAMIN 681 232 - 1245 08/27 Specimen Ty pe: SERUM [place]ON B-12 (VITAMIN /2020 Comment: High doses of Biotin supplements (>5 mg/day) may falsely increase Vitamin B-12, Vitamin D (25OH), Free T4, and Folate results. Test specimens should be collected at least 8 hrs after [facility] B12) st ingestion of high dose biotin. High doses of Biotin supplements (>5 mg/day) may falsely decrease Total PSA, Free PSA, Pro-BNP, AFP, C-Peptide and Ferritin results. Test specimens should be col [MASS/VOLU lected at gurwinder [facility] 8 hours after the last ingestion of high dose biotin. ME] IN Ordering Provid er: JUAN STRONG SERUM OR Report Release d Date/Time: Aug 05, 2019 09:52 AM PLASMA Reporting Lab: PAT Canela [address] [facility] [facility] [address] Performing Lab: PAT Canela [address] [place] [facility] [address] VITAMIN 25-HYDROXY 44.1 30.0 - 100 08/27 Specimen T ype: SERUM LEWISTON D VITAMIN D3 /2020 Comment: Hig h doses of Biotin supplements (>5 mg/day) may falsely increase Vitamin B-12, Vitamin D (25OH), Free T4, and Folate results. Test specimens should be collected at least 8 hrs after [facility] (25-HYDR [MASS/VOLU st ingestion of high dose biotin. High doses of Biotin supplements (>5 mg/day) may falsely decrease Total PSA, Free PSA, Pro-BNP, AFP, C-Peptide and Ferritin results. Test specimens should be col OXY) ME] IN lected at least 8 hours after the last ingestion of high dose biotin. SERUM OR Ordering Provi jarett: JUAN STRONG PLASMA Report Released Date/Time: Aug 05, 2019 09:52 AM Reporting Lab: PAT AlvaradoDeidre [address] [place] [address] Performing Lab: PAT ChildersDeidre [facility] [address] [place] [address] Vital Signs Combined list of inpatient and outpatient Vital Signs from Department of Defense and Veterans Affairs, ranging from 12 months to all on record, depending upon the facility. Vital Sign Value Date Comments Source Systolic Blood Pressure 124mm[Hg] 10/16/[facility]21 [facility]00 Diastolic Blood Pressure 78mm[Hg] 10/16/[facility]21 [facility] 18:[facility]:00 Mean Arterial Pressure, 93mm[Hg] 10/16/2021 [facility] Cuff 18:25:00 Peripheral Pulse Rate 84bpm 10[facility]16/2021 [facility] 18:25:00 Respiratory Rate 16br/min 10/16/[facility]21 [facility] 18:25:00 Temperature Temporal 36.5Cel 10/16/2021 [facility] Artery 18:25:00 BP Site 10/16/2021 [facility] 18:25:00 Blood Pressure Manual 10/16/2021 [facility] 18:25:00 Systolic Blood Pressure 130mm[Hg] 09/18/2015 [facility] 17:43:42 Diastolic Blood Pressure 80mm[Hg] 09/18/2015 [facility] 17:43:42 Systolic Blood Pressure 133mm[Hg] 09/03/2020 [facility] 21:32:09 Diastolic Blood Pressure 81mm[Hg] 09/03/2020 [facility] 21:32:09 Systolic Blood Pressure 136mm[Hg] 07/14/2018 [facility] 17:39:52 Diastolic Blood Pressure 79mm[Hg] 07/14/2018 [facility] 17:39:52 Systolic Blood Pressure 129mm[Hg] 03/22/2019 [facility] 15:43:21 Diastolic Blood Pressure 83mm[Hg] 03/22/2019 [facility] 15:43:21 Systolic Blood Pressure 112mm[Hg] 08/16/2017 [facility] 19:30:43 Diastolic Blood Pressure 81mm[Hg] 08/16/2017 [facility] 19:30:43 Systolic Blood Pressure 134mm[Hg] 10/02/2016 [facility] 16:30:53 Diastolic Blood Pressure 87mm[Hg] 10/02/2016 [facility] 16:30:53 Systolic Blood Pressure 126mm[Hg] 09/18/2015 [facility] 16:57:33 Diastolic Blood Pressure 77mm[Hg] 09/18/2015 [facility] 16:57:33 Systolic Blood Pressure 110mm[Hg] 08/02/2019 [facility] 18:23:07 Diastolic Blood Pressure 71mm[Hg] 08/02/2019 [facility] 18:23:07 Systolic Blood Pressure 112mm[Hg] 03/17/2018 [facility] 16:15:47 Diastolic Blood Pressure 76mm[Hg] 03/17/2018 [facility] 16:15:47 Encounters Combined list of: 1) Encounters from Department of Veterans Affairs facilities going back up to the last 18 months, not all VA inpatient encounters are included; 2) Encounters from the Department of Defense facilities going back up to 280 months. Location Location Encounter Encounter Reason Attending ADM CA Stat us Disposition Source Details Type Number For Provider Date Date Visit Outpatient HERNANDEZ STONE 07/08 JONATHA Encounter [id number] A [facility] [place] [id number] JOVANNY Juarez 07/09 Katherine ARZATE PHONE CALL [id number] is: I S /2019 N [facility] 11-20 MIN 0 ICD-10- CLINIC CM Z71.89 Other specifi ed cosmetic counselor ing<br/ >with Provide r Comment s: Education Site Manager ing,Oth Specifi ed Outpatient [id number]/09 KIERSTEN SOFIA Encounter [id number] /2019 [facility] Outpatient [id number] NICOLÁS LORENZO 07/30 JONATHA Encounter [id number] I [facility] Outpatient 39200-809/02 KIERSTEN SOFIA Encounter [id number] /2020 N [facility] OFFICE O/P 10600-2. 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<b r/>with Provide r Comment s: Coronar y arterio scleros is (SNOMED CT 4131002 8) Outpatient [id number] BERTHA,TW09/04 JONATHA Encounter [id number] [facility] Outpatient [id number] 09/05 PUBL IC Encounter [id number] HEALTH SERVICE Outpatient 84509-3.68 BERTHA,TW09/06 JONATHA Encounter [id number] A [facility] Outpatient [id number] 09/07 KIERSTEN SOFIA Encounter [id number] N [facility] Outpatient [id number] 09/26 PUBL IC Encounter [id number] HEALTH SERVICE Outpatient [id number] 09/26 KIERSTEN SOFIA Encounter [id number] N [facility] Outpatient 62233-5.68 BERTHATW09/26 JONATHA Encounter [id number] A [facility] Outpatient [id number] 09/27 KIERSTEN SOFIA Encounter [id number] N [facility] Outpatient [id number] 10/08 KIERSTEN SOFIA Encounter [id number] Patricia [facility] Outpatient [id number] 10/08 KIERSTEN SOFIA Encounter [id number] N [facility] Outpatient [id number] 10/08 KIERSTEN SOFIA Encounter [id number] Patricia [facility] Outpatient [id number] 10/13 KIERSTEN SOFIA Encounter [id number] N [facility] Outpatient [id number] 10/15 KIERSTEN SOFIA Encounter [id number] N [facility] Outpatient 57923-4.68 04/08 KIERSTEN SOFIA Encounter [id number] N [facility] Outpatient 56603-511/14 KIERSTEN SOFIA Encounter [id number] N [facility] Outpatient 97175-211/15 KIERSTEN SOFIA Encounter [id number] N [facility] Outpatient 40013-911/20 KIERSTEN SOFIA Encounter [id number] N [facility] Outpatient 65377-811/29 KIERSTEN SOFIA Encounter [id number] N [facility] Outpatient 67611-011/29 KIERSTEN SOFIA Encounter [id number] N [facility] REPAIR & Diagnos PHYLLIS SMILEY 11/29 JONATHA ADJUST [id number] is: GHADA C /2020 N M. SPECTACLES ICD-10- STARINWRI [facility] Z46.0 [facility] Encount er for fit/adj st of spectac les and contact lenses< br/>wit h Provide r Comment s[facility] Spectac les and Contact Lenses HC PRO Diagnos DAVID KEE 12/03 J ONATHA PHONE CALL [id number] is: N M N M. 5-10 MIN ICD-10- WAINWRI [facility] G47.33 [facility] Obstruc tive sleep apnea (adult) (pediat tiffany)
with Provide r Comment s: Obstruc tive sleep apnea syndrom e (SCT [id number] 9) Outpatient DAVID KEE 12/03 JONATHA Encounter [id number] N M N [facility] Outpatient 80705-212/06 KIERSTEN SOFIA Encounter [id number] N [facility] Outpatient 44444-612/12 KIERSTEN SOFIA Encounter [id number] Patricia [facility] Outpatient 85399-7.68 12/12 KIERSTEN SOFIA Encounter [id number] Patricia [facility] Outpatient 29178-3.68 12/25 KIERSTEN SOFIA Encounter [id number] Patricia [facility] Outpatient 52670-4.68 01/16 KIERSTEN SOFIA Encounter [id number] Patricia [facility] Outpatient 06010-4.68 02/04 KIERSTEN SOFIA Encounter [id number] Patricia [facility] Outpatient 49207-1.68 03/20 KIERSTEN SOFIA Encounter [id number] Patricia [facility] Outpatient 23596-2.68 04/17 KIERSTEN SOFIA Encounter [id number] Patricia [facility] OFFICE O/P 25979-8. Diagnos JESSICA NARVAEZ 05/[address] [facility] EST [id number] is: FLORINDA G [facility] 48 ICD-10- CLINIC PROB CM Z23 Encount er for immuniz ation<b r/>with Provide r Comment s: [facility] 98422-2.68 05/17 KIERSTEN SOFIA Encounter [id number] Patricia [facility] Outpatient 56000-9.68 05/27 KIERSTEN SOFIA Encounter [id number] Patricia [facility] Outpatient 13705-7.68 05/28 KIERSTEN SOFIA Encounter [id number] Patricia [facility] Outpatient 74148-0.68 07/24 KIERSTEN SOFIA Encounter [id number] Patricia [facility] Outpatient 98037-1.68 07/24 KIERSTEN SOFIA Encounter [id number] Patricia [facility] [place] [address]-2.68 Diagnos IMTIAZ MONTOYA 07/31 JONATHA DIG [id number] is: HUANG Salmon N M. ASSMT&MGMT ICD-10- WAINWRI 11-20 CM T L40.52 [facility] Psoriat ic arthrit is mutilan s
w ith Provide r Comment s: Psoriat ic arthrit is (SCT [id number] 1) Outpatient 51146-2.08/18 KIERSTEN SOFIA Encounter [id number] N [facility] Outpatient 12128-2.08/25 KIERSTEN SOFIA Encounter [id number] N [facility]OCELY[facility] Outpatient 97053-0.09/11 KIERSTEN SOFIA Encounter [id number] N [place] [facility] Outpatient 59715-410/01 KIERSTEN SOFIA Encounter [id number] N Hilton NJNIDHIJANICEI [facility] Between [id number] Sleep 10/07 10/07 Discharge 687 Visit apnea, /2021 Disposition: Nakul a unspeci Home or Self n M fied Care [facility] Outpatient [id number] Juan 10/08 10/08 Discharge 6 87GB ESmith /2021 Disposition: Eric o Home [facility] n [facility] Between [id number] 10/15 10/15 Discharge 687GB Visit /2021 Disposition: Karine [facility] Outpatient [id number] Acute Juan 10/16 10/16 Discharge 6 87GB pharyng ESmith /2021 Disposition: Randy correa itis, Home or Self n [place] unspeci [facility] Clinic fied,Un specifi ed fractur e of shaft of unspeci fied femur, initial encount er for closed fractur e,Swati diasis, unspeci fied,Ot her specifi ed respira tory disorde rs,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 Procedure Procedure Type Code Date Perfomer Comments Sourc e ESOPHAGOGASTRO [place] [address] Ambul atory DUODENOSCOPY, gastrointestinal 1 Pharmacy FLEXIBLE, endoscopy including TRANSORAL; esophagus, stomach, WITH BIOPSY, and either the SINGLE OR duodenum and/or MULTIPLE jejunum as appropriate; with biopsy, single or multiple COLONOSCOPY, Colonoscopy, [address] Ambu latory FLEXIBLE; WITH flexible, proximal to 9 Pharmacy BIOPSY, SINGLE splenic flexure; with OR MULTIPLE biopsy, single or multiple Social History Combined list of available smoking, tobacco, and other social history from [facility] Defense and[facility] Affairs facilities. Social History Type Response Date Comment Source Tobacco smoking VA-TOBACCO FORMER 09/03/2020 KARINE [place] [facility] [place] [facility] USER History of tobacco VA-TOBACCO QUIT 15 09/03/2020 CHUYITA [place]REG[place] [facility] use YRS OR MORE History of tobacco [place] QUIT 15 08/02/2019 [facility] [place]REG[place] [facility] use [facility] MORE History of tobacco VA-TOBACCO FORMER 07/14/2018 R[place]Y JETER [place] [facility] use [place] History of tobacco TOBACCO SCREEN 08/16/2017 [facility]AR[facility] [place] [facility] use COMPLETED History of tobacco QUIT TOBACCO >7 09/17/2006 NAKUL Canela use YEARS AGO [facility] History of tobacco FORMER TOBACCO USER 05/18/2001 September 17, 1995 Alvarado FISHER use [facility] History of tobacco TOBACCO PRODUCTS 03/05/1998 HEAVENLY Canela use USER (NO) [facility] Exposure to Exposure to Ambulatory Phar bri Secondhand Smoke: Secondhand Smoke: No. Never-cigarette No. Never-cigarette user Cigarette use:. user Cigarette Never-other tobacco use:. Never-other user (not tobacco user (not cigarettes) Other cigarettes) Other Tobacco use:. Tobacco use:. This section is an [facility] empty social history section. Assessment and Plan Combined list of future care activities from Department of Defense and Veterans Affairs facilities (e.g., assessment and plan notes, appointments, orders, and referrals). Additional future care activities may be listed in the Plan of Care section. Result Assessment and Plan Date Source Assessment and Plan Extracted from:Title: Office Clinic Note 08/2021 Ambulatory Pharmacy Author: Juan Strong NP Date: 10/16/21 1.Pharyngitis Augmentin Ordered: CBC w/ Diff Comprehensive Metabolic Panel Hemoglobin A1c Lipid Panel Magnesium Level Pro B-Type Natriuretic Peptide (ProBNP) Thyroid Stimulating Hormone Urinalysis with Microscopic and Culture if Yas cated Vitamin B12 Level Vitamin D 25 Hydroxy Level [facility] - [facility] 2.Fracture of femoral shaft F/U ortho [place] Ordered: CBC w/ Diff Comprehensive Metabolic Panel Hemoglobin A1c Lipid Panel Magnesium Level Pro B-Type Natriuretic Peptide (ProBNP) Thyroid Stimulating Hormone Urinalysis with Microscopic and Culture if Yas cated Vitamin B12 Level Vitamin D 25 Hydroxy Level [facility] - [facility] 3.Candidiasis nystatin Ordered: CBC w/ Diff Comprehensive Metabolic Panel Hemoglobin A1c Lipid Panel Magnesium Level Pro B-Type Natriuretic Peptide (ProBNP) Thyroid Stimulating Hormone Urinalysis with Microscopic and Culture if Yas cated Vitamin B12 Level Vitamin D 25 Hydroxy Level [facility] 4.Respiratory infection as above Ordered: CBC w/ Diff Comprehensive Metabolic Panel Hemoglobin A1c Lipid Panel Magnesium Level Pro B-Type Natriuretic Peptide (ProBNP) Thyroid Stimulating Hormone Urinalysis with Microscopic and Culture if Yas cated Vitamin B12 Level Vitamin D 25 Hydroxy Level [facility] - [facility] Orders: alendronate, 70 MG BY MOUTH EVERY SEVEN DAYS, Oral, every week, # 12 tab(s), 3 total refill(s), Maintenance, 70 MG BY MOUTH EVERY SEVEN DAYS Oral every week, Pharmacy: [facility] [Not filled] atorvastatin, See dose inst ructions in comments, Oral, Daily, # 90 tab(s), 3 total refill(s), Maintenance, See dose instructions in comments Oral Daily, Pharmacy: [facility] [Not filled] calcium-vitamin D, 1 tab(s) , Oral, BID, # 60 tab(s), 0 total refill(s), Maintenance, 1 tab(s) Oral BID, Pharmacy: [facility] [Not filled] cholecalciferol, 2000 UNIT, Oral, Daily, # 100 tab(s), 0 total refill(s), Maintenance, 2000 UNIT Oral Daily, Pharmacy: [facility] [Not filled] fenofibrate, 1 tab(s), Oral , Daily, TAKE ONE TABLET BY MOUTH EVERY DAY, # 90 tab(s), 3 total refill(s), Maintenance, 1 tab(s) Oral Daily,Instr:TAKE ONE TABLET BY MOUTH EVERY DAY, Pharmacy: [facility] [Not filled] folic acid, 1 MG, Oral, Rhiannon ly, # 90 tab(s), 0 total refill(s), Maintenance, 1 MG Oral Daily, Pharmacy: [facility] [Not filled] hydroCHLOROthiazide, 25 MG, Oral, Daily, # 90 tab(s), 3 total refill(s), Maintenance, 25 MG Oral Daily, Pharmacy: [facility] [Not filled] lisinopril, 10 MG, Oral, Da chidi, # 90 tab(s), 3 total refill(s), Maintenance, 10 MG Oral Daily, Pharmacy: [facility] [Not filled] methocarbamol, See dose ins tructions in comments, Oral, TID, PRN muscle spasm, # 90 tab(s), 3 total refill(s), Maintenance, See dose instructions in comments Oral TID,PRN:muscle spasm, Pharmacy: [facility] [Not filled] naproxen, See dose instruct ions in comments, Oral, BID, # 90 tab(s), 0 total refill(s), Maintenance, See dose instructions in comments Oral BID, Pharmacy: [facility] [Not filled] naproxen, 2 tab(s), Oral, B ID, PRN fever/mild pain, # 360 tab(s), 1 total refill(s), Maintenance, 2 tab(s) Oral BID,PRN:fever/mild pain, Pharmacy: [facility] [Not filled] nitroglycerin, 0.4 mg, SubL ingual, Daily, DISSOLVE ONE TABLET UNDER THE TONGUE EVERY DAY FOR CHEST PAIN MAY REPEAT EVERY 5 MINUTES UP TO 3 DOSES, # 100 tab(s), 0 total refill(s), Maintenance, 0.4 mg Bush bLingual Daily,Instr:DISSOLVE ONE TABLET UNDER T HE TONGUE EVERY... [ tamsulosin, 0.4 MG, Oral, D aily, # 90 tab(s), 3 total refill(s), Maintenance, 0.4 MG Oral Daily, Pharmacy: [facility] [Not filled] tamsulosin, 1 cap(s), Oral, Daily, # 90 cap(s), 0 total refill(s), Maintenance, 1 cap(s) Oral Daily, Pharmacy: [facility] [Not filled] Future Appointments Appointment Date: 10/06/2022 10:00:00 AM Scheduled Provider: Location: [facility] Lab Appointment Type: Lab Visit Appointment Date: 10/15/2022 12:30:00 PM Scheduled Provider: Juan Strong NP Location: [facility] PC Appointment Type: PC Established Patient Future Scheduled TestsLabora toryVitamin D 25 Hydroxy Level 10/16/21Hemoglobin A1c 10/16/21Pro B-Type Natriuretic Peptide (ProBNP) 10/16/21Urinalysis with Microscopic and Culture if Indicated 10/16/21Prostate Sp ecific Antigen 10/16/21CBC w/ Diff 10/16/21Comprehensive Metabolic Panel 10/16/21Lipid Panel 10/16/21Thyroid Stimulating Hormone 10/16/21Vitamin B12 Level 10/16/21Patient CareFollow Up - [place] 10/15/22 Advance Directives List of completed, amended, or rescinded Advance Directives on record at Department of Veterans Affairs facilities. An actual copy of the Directive is not included. Date Advance Directive Provider Source 04/28/2018 ADVANCE DIRECTIVE MAXIMUS DE LEÓN [facility] Functional Status Combined list of recent functional and cognitive assessments recorded at Department of Defense and Veterans Affairs (VA).VA Functional Audubon Measurement (FIM) Scale: 1 = Total Assistance (Subject = 0% +), 2 = Maximal Assistance (Subject = 25% +), 3 = Moderate Assistance (Subject = 50% +), 4 = Mi nimal Assistance (Subject = 75% +), 5 = Supervision, 6 = Modified Audubon (Device), 7 = Complete Audubon (Timely, Safely). Assessment Source Assessment Type Assessment Assessment Assessmen t Date/Time Skill Score Details No data available for this section
--- OUTSIDE RECORDS SUMMARY | 2021-11-10 07:58 | External Medical Summary | Encounter Summary ---
:1950 Author Organization [facility] Address [address] [place] [address] Care Team Providers Name Role Phone JUAN ANDREWS Primary Care Provider Unavailable Insurance Providers: All historical and current Section Date Range: From patient's date of to the date document was created.This section includes the names of all active insurance providers for the patient. Insurance Type of Plan Start of End of Group Member Insurance Policy P atient's Provider Coverage Name Policy Policy Number ID Provider's Swartz's Relationship Coverage Coverage Telephone Name to Policy Number Swartz [employer] [place] Jan 09 [facility] [id number] [phone] CRYSTAL , PATIENT SCRIPTS RE 2016 30 [id number] [place] RX [place] MEDICARE MEDICARE PART Jan 09, PART A [id number] CRYSTAL, PATIENT (WNR) (M) A 2017 30A [id number] [place] MEDICARE MEDICARE PART Jan 09, PART B [id number] CRYSTAL, PATIENT (WNR) (M) B 2017 30A [id number] [place] MEDICARE MEDICARE PART Jan 09, PART A [id number] CRYSTAL, PATIENT (WNR) (M) A 2017 [id number] [place] MEDICARE MEDICARE PART Jan 09, PART B [id number] CRYSTAL, PATIENT (WNR) (M) B 2017 [id number] [place]IS[place] -FO [place]ICA Jan 09, TFL [id number] [phone] NORMA SON, PATIENT R-LIFE RE-FO 2016 30 4 TRISHA R-LIF E -FO TRICA Jan 09, TFL [id number] [phone] NORMA SON, PATIENT R-LIFE WNR RE 2016 30 404 [place] FOR LIFE Selected Encounter This section includes the information on record at [place] for the Encounter. Date/Time Encounter Type Encounter Description Reason Provider Source November 29, 2020 08:18 Outpatient Encounter [facility] CONSULT IHE Encounter Template Text not used by [place] Plan of Treatment: Future Appointments (+ 6 months) and Future Tests (+/- 45 days) The Plan of Treatment section includes future care activities for the patient from all [place] treatmentfacilities. This section includes future appointments and future orders which are active, pending orscheduled.Future Appointments This section includes appointments that were scheduled to occur 6 months from the date of the Encounter, up to a maximum of 20 appointments. The data comes from all [place] treatment facilities. Appointment Date/Time Appointment Type Appointment Facili ty Name Feb 04, 2021 08:00 AM AMBULATORY - NONE PAT ENRIQUEZ [facility] Social History: Smoking Status (Most current) and Tobacco Use (All prior to encounter date) This section includes the most current, and the historical, smoking and tobacco-related health factors from the [place] facility where the Encounter took place.Current Smoking Status This section includes the most current smoking, or tobacco-related health factor, from the [place] facility where the Encounter took place. Date/Time Current Smoking Status Comment Facility Sep 17, 2006 10:16 AM QUIT TOBACCO >7 [facility]ARS AGO [facility] Tobacco Use History This section includes a history of the smoking, or tobacco- related health factors, that were collected on or before the date of the Encounter. The data comes from the [place] facility where the Encounter took place. Date/Time Smoking Status/Tobacco Use Comment [facility] Sep 17, 2006 10:16 AM TOBACCO OFFERRED STOP SMOKING PAT GODFREY [facility] Mar 05, 1998 02:10 PM TOBACCO PRODUCTS USER (NO) [facility] Advance Directives: All historical and current Section Date Range: From patient's date of to the date document was created. This section includes ALL of a patient's completed or amended [place] Advance and Rescinded Directives. The entries below indicate that a directive exists for the patient, but an actual copy is not included with this document. The data comes from all [place] facilities. Date Advance Directives Provider Source Apr 28, 2018 ADVANCE DIRECTIVE SARTHAKMAXIMUS Zaida Canela [facility] Encounter Notes: All associated encounter notes This section contains the clinical notes associated to the Encounter. Date/Time Encounter Note(s) Provider Source November 29, 2020 08:18 AM OPTOMETRY TELEPHONE ENCOUNTER NOTE: PAT BARNETT LOCAL TITLE: EYE OPTOMETRY TELEPHONE NOTE [facility] STANDARD TITLE: OPTOMETRY TELEPHONE ENCOUNTER NO TE DATE OF NOTE: NOVEMBER 29, 2020@08:18 ENTRY DATE: NOVEMBER 29, 2020@08:19:03 AUTHOR: PAT BARNETT EXP COSIGNER: URGENCY: STATUS: COMPLETED Optical Replacement Requests Patient identification is confirmed by full name and prior to discussion. Contacted by Patient Patient requests replacement of corroded frame [X]Patient is eligible for replacement. [ ]Patient is not eligible for replace due to: [X]Other:The reports his skin has eaten the coating off of his faith pieces. The glasses are still working well for h im otherwise. 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
--- OUTSIDE RECORDS SUMMARY | 2021-11-10 07:58 | External Medical Summary | Encounter Summary ---
:1950 Author Organization Department of [facility] Address [address] [place] [address] Care Team Providers Name Role Phone JUAN [...] Policy Number Swartz EXPRESS [facility] Jan 09 [facility] [id number] [phone] CRYSTAL , PATIENT SCRIPTS RE 2016 30 304 TRISHA RX DODA MEDICARE MEDICARE PART Jan 09, PART A [id number] CRYSTAL, PATIENT (WNR) (M) A 2017 30A 1213 TRISHA MEDICARE MEDICARE PART Jan 09, PART B [id number] [phone] CRYSTAL, PATIENT (WNR) (M) B 2017 30A 1213 TRISHA MEDICARE MEDICARE PART Jan 09, PART A [id number] [phone] CRYSTAL, PATIENT (WNR) (M) A 2017 HN43 1213 TRISHA MEDICARE MEDICARE PART Jan 09, PART B [id number] [id number] CRYSTAL, PATIENT (WNR) (M) B 2017 [id number] TRISHA -FO TRICA Jan 09, TFL [id number] [phone] NORMA SON, PATIENT R-LIFE RE-FO 2016 30 4 TRISHA R-LIF E -FO TRICA Jan 09, TFL [id number] [phone] NORMA SON, PATIENT R-LIFE WNR RE 2016 30 404 TRISHA FOR LIFE Selected Encounter This section includes the information on record at [place] for the Encounter. Date/Time Encounter Type Encounter Description Reason Provider Source Aug 25, 2021 06:20 Outpatient Encounter COMMUNITY CARE PM CONSULT IHE Encounter Template Text not used by [place] Plan of Treatment: Future Appointments (+ 6 months) and Future Tests (+/- 45 days) The Plan of Treatment section includes future care activities for the patient from all [place] treatmentfacilities. This section includes future appointments and future orders which are active, pending orscheduled.Future Appointments This section includes appointments that were scheduled to occur 6 months from the date of the Encounter, up to a maximum of 20 appointments. The data comes from all [place] treatment [facility]. Appointment Date/Time Appointment Type Appointment Facili ty Name Oct 08, 2021 09:30 AM AMBULATORY - MEDICINE [facility] Oct 16, 2021 11:00 AM AMBULATORY - MEDICINE [facility] Active, Pending, and Scheduled Orders This section includes a listing of several types of active, pending, and scheduled orders, including clinic medications orders, diagnostic test orders, procedure orders and consult orders; where the start date of the order is 45 days before the date of the Encounter or 45 days after the date of the Encounter. The data comes from all [facility]. Test Date/Time Test Type Test Details Facility Name Sep 11, 2021 12:00 AM Laboratory - URINALYSIS (IRIS) URINE [facility] Chemistry Order SP Sep 11, 2021 12:00 AM Laboratory - VITAMIN D (25-HYDROXY) [facility] Chemistry Order GOLD RF SERUM SP Sep 11, 2021 12:00 AM Laboratory - COMPREHENSIVE METABOLIC [facility] Chemistry Order PANEL GOLD RF SERUM SP Sep 11, 2021 12:00 AM Laboratory - CBC & MORPHOLOGY (WITH [facility] Chemistry Order DIFF) LAV WB BLOOD SP Sep 11, 2021 12:00 AM Laboratory - THYROID [facility]UL[facility] Chemistry Order HORMONE GOLD RF SERUM SP Sep 11, 2021 12:00 AM Laboratory - LIPID PANEL GOLD RF [facility] Chemistry Order SERUM SP Sep 11, 2021 12:00 AM Laboratory - VITAMIN B-12 GOLD DK FZ [facility] Chemistry Order SERUM SP Sep 11, 2021 12:00 AM Laboratory - BNP, NT-PRO GOLD RF [facility] Chemistry Order SERUM SP Sep 11, 2021 12:00 AM Laboratory - HEMOGLOBIN A1C LAV WB RF L [facility] Chemistry Order BLOOD SP Sep 11, 2021 12:00 AM Laboratory - MAGNESIUM GOLD RF BLOOD [facility] Chemistry Order TODAY SP Sep 11, 2021 12:00 AM Laboratory - MICROALBUMIN/CREATININE [facility] Chemistry Order PANEL URINE, RANDOM SP Social History: Smoking Status (Most current) and Tobacco Use (All prior to encounter date) This section includes the most current, and the historical, smoking and tobacco-related health factors from the [place] facility where the Encounter took place.Current Smoking Status This section includes the most current smoking, or tobacco-related health factor, from the [place] facility where the Encounter took place. Date/Time Current Smoking Status Comment Facility Sep 17, 2006 10:16 AM QUIT TOBACCO >7 YEARS AGO PAT Canela [facility] Tobacco Use History This section includes a history of the smoking, or tobacco- related health factors, that were collected on or before the date of the Encounter. The data comes from the [place] facility where the Encounter took place. Date/Time Smoking Status/Tobacco Use Comment [facility] Sep 17, 2006 10:16 AM TOBACCO OFFERRED STOP SMOKING [facility] Mar 05, 1998 02:10 PM TOBACCO PRODUCTS USER (NO) PAT Canela [facility] Advance Directives: All historical and current Section Date Range: From patient's date of to the date document was created. This section includes ALL of a patient's completed or amended [place] Advance and Rescinded Directives. The entries below indicate that a directive exists for the patient, but an actual copy is not included with this document. The data comes from all [place] facilities. Date Advance Directives Provider Source Apr 28, 2018 ADVANCE DIRECTIVE MAXIMUS DE LEÓN [facility] Encounter Notes: All associated encounter notes This section contains the clinical notes associated to the Encounter. Date/Time Encounter Note(s) Provider Source Aug 25, 2021 06:21 PM ADMINISTRATIVE NOTE: NYLA HULL LOCAL TITLE: ADMINISTRATIVE NOTE [facility] STANDARD TITLE: ADMINISTRATIVE NOTE DATE OF NOTE: AUG 25, 2021@18:21 ENTRY DATE: AUG 25, 2021@18:21:46 AUTHOR: NYLA HULL EXP COSIGNER: URGENCY: STATUS: COMPLETED This is the second attempt to contact this patie nt and schedule an appointment in for the recall system. Failed to reach patient. Other: RECALL Attempted to contact [place] to schedule FROYLAN-LAB and [facility]OY[facility] PACT [facility] READING SPECIALIST appointments. Unable to reach . Left message on Voice Mail Call Center please forward call to [place] FOWLER for scheduling. Thank you, Nyla felix [address] [facility] for Team [place] [facility] [address] [place] [address], [address] [place] [address] Date: AUG 25, 2021 TRISHA ROJAS [address] [place] [id number] Dear TRISHA ROJAS, Our records indicate that it is time for you to schedule an appointment with your primary care provider at the [place]. A primary care provider is responsible for coordinating medical care for their assigned patients. This coordination of care includes routine office visits, health p romotion, chronic disease maintenance, and referrals to specialists as [facility], as well as providing medications associated with VA medical care. We have attempted to contact you by telephone to verify that you are interested in scheduling a follow up vis it with your [facility] Primary Care provider. Since we have been unable to contact you directl y, we would like you to contact us. If we do not hear from you by Aug, we wi ll assume you are not currently interested in a follow up appointment at the [place] and will remove you from our schedulin g list. Please [facility] at the following number: select scheduling option from e menu. Our hours are Wednesday thru Wednesday 8:00am-4:30 pm. and closed on Federal holidays. We look forward to serving you, [facility] Care Team /nat/ NYLA FOWLER Signed: 08/25/2021 18:22 Aug 25, 2021 06:20 PM ADMINISTRATIVE NOTE: NYLA HULL LOCAL TITLE: ADMINISTRATIVE NOTE [facility] STANDARD TITLE: ADMINISTRATIVE NOTE DATE OF NOTE: AUG 25, 2021@18:20 ENTRY DATE: AUG 25, 2021@18:20:53 AUTHOR: NYLA HULL EXP COSIGNER: URGENCY: STATUS: COMPLETED This is the first attempt to contact this patien t and schedule an appointment in [facility] [place] [facility] SPECIALIST for the recal l system. Failed to reach patient. Other: Left msg RECALL Attempted to contact to schedule FROYLAN-LAB and FROYLAN PACT LIBERTY READING SPECIALIST appointments. Unable to reach [place]. Left message on Voice Mail Call Center please forward call to [place] FOWLER for scheduling. Thank you, Nyla felix [id number] [place] for Team [place] /nat/ NYLA FOWLER Signed: 08/25/2021 18:21
--- OUTSIDE RECORDS SUMMARY | 2021-11-10 07:59 | External Medical Summary | Encounter Summary ---
:1950 Author Organization Department of [facility] Address [address] [place] [address] Care Team Providers Name Role Phone JUAN [...] Policy Number Swartz EXPRESS TRICA Jan 09 [facility] [id number] [phone] CRYSTAL , PATIENT SCRIPTS RE 2016 30 304 TRISHA RX DODA MEDICARE MEDICARE PART Jan 09, PART A [id number] CRYSTAL, PATIENT (WNR) (M) A 2017 30A 1213 TR[place] MEDICARE MEDICARE PART Jan 09, PART B [id number] [phone] CRYSTAL, PATIENT (WNR) (M) B 2017 30A 1213 [place] MEDICARE MEDICARE PART Jan 09, PART A [id number] [phone] CRYSTAL, PATIENT (WNR) (M) A 2017 HN43 1213 TR[place] MEDICARE MEDICARE PART Jan 09, PART B [id number] [phone] CRYSTAL, PATIENT (WNR) (M) B 2017 [id number] TRISHA -FO TRICA Jan 09, [place] [id number] [phone] NORMA SON, PATIENT R-LIFE RE-FO 2017 30 4 TRISHA R-LIF E -FO [place]ICA Jan 09, [place] [id number] [phone] NORMA SON, PATIENT R-LIFE WNR RE 2016 30 404 TRISHA [facility] Selected Encounter This section includes the information on record at [place] for the Encounter. Date/Time Encounter Type Encounter Description Reason Provider Source Sep 11, 2021 03:29 Outpatient Encounter COMMUNITY CARE PM CONSULT IHE Encounter Template Text not used by [place] Plan of Treatment: Future Appointments (+ 6 months) and Future Tests (+/- 45 days) The Plan of Treatment section includes future care activities for the patient from all [place] treatmentfacilities. This section includes future appointments and future orders which are active, pending orscheduled.Future Appointments This section includes appointments that were scheduled to occur 6 months from the date of the Encounter, up to a maximum of 20 appointments. The data comes from all [place] treatment [facility]. Appointment Date/Time Appointment Type Appointment Facili ty Name Oct 08, 2021 09:30 AM AMBULATORY - MEDICINE [facility] IC Oct 16, 2021 11:00 AM AMBULATORY - MEDICINE [facility] Active, Pending, and Scheduled Orders This section includes a listing of several types of active, pending, and scheduled orders, including clinic medications orders, diagnostic test orders, procedure orders and consult orders; where the start date of the order is 45 days before the date of the Encounter or 45 days after the date of the Encounter. The data comes from all [place] treatment [facility]. Test Date/Time Test Type Test Details Facility Name Sep 11, 2021 12:00 AM Laboratory - URINALYSIS (IRIS) URINE [facility] Chemistry Order SP Sep 11, 2021 12:00 AM Laboratory - VITAMIN D (25-HYDROXY) [facility] Chemistry Order GOLD RF SERUM SP Sep 11, 2021 12:00 AM Laboratory - COMPREHENSIVE METABOLIC [facility] Chemistry Order PANEL GOLD RF SERUM SP Sep 11, 2021 12:00 AM Laboratory - CBC & MORPHOLOGY (WITH [facility] Chemistry Order DIFF) LAV WB BLOOD SP Sep 11, 2021 12:00 AM Laboratory - TH[facility] Chemistry Order HORMONE GOLD RF SERUM SP Sep 11, 2021 12:00 AM Laboratory - LIPID PANEL GOLD RF [facility] Chemistry Order SERUM SP Sep 11, 2021 12:00 AM Laboratory - VITAMIN B-[address] [facility] Chemistry Order SERUM SP Sep 11, 2021 12:00 AM Laboratory - BNP, NT-PRO GOLD RF [facility] Chemistry Order SERUM SP Sep 11, 2021 12:00 AM Laboratory - HEMOGLOBIN A1C LAV WB RF L [facility] Chemistry Order BLOOD SP Sep 11, 2021 12:00 AM Laboratory - MAGNESIUM GOLD RF BLOOD [facility] Chemistry Order TODAY SP Sep 11, 2021 12:00 AM Laboratory - MICROALBUMIN/CREATININE [facility] Chemistry Order PANEL URINE, RANDOM SP Social History: Smoking Status (Most current) and Tobacco Use (All prior to encounter date) This section includes the most current, and the historical, smoking and tobacco-related health factors from the [place] facility where the Encounter took place.Current Smoking Status This section includes the most current smoking, or tobacco-related health factor, from the [place] facility where the Encounter took place. Date/Time Current Smoking Status Comment Facility Sep 17, 2006 10:16 AM QUIT TOBACCO >7 YEARS AGO PAT Canela [facility] Tobacco Use History This section includes a history of the smoking, or tobacco- related health factors, that were collected on or before the date of the Encounter. The data comes from the [place] facility where the Encounter took place. Date/Time Smoking Status/Tobacco Use Comment [facility] Sep 17, 2006 10:16 AM TOBACCO OFFERRED STOP SMOKING [facility] Mar 05, 1998 02:10 PM TOBACCO PRODUCTS USER (NO) PAT Canela [facility] Advance Directives: All historical and current Section Date Range: From patient's date of to the date document was created. This section includes ALL of a patient's completed or amended [place] Advance and Rescinded Directives. The entries below indicate that a directive exists for the patient, but an actual copy is not included with this document. The data comes from all [place] facilities. Date Advance Directives Provider Source Apr 28, 2018 ADVANCE DIRECTIVE MAXIMUS DE LEÓN [facility] Encounter Notes: All associated encounter notes This section contains the clinical notes associated to the Encounter. Date/Time Encounter Note(s) Provider Source Sep 11, 2021 03:29 PM ADMINISTRATIVE NOTE: CHA ALCARAZ [facility] TITLE: ADMINISTRATIVE NOTE [facility] STANDARD TITLE: ADMINISTRATIVE NOTE DATE OF NOTE: SEP 11, 2021@15:29 ENTRY DATE: SEP 11, 2021@15:29:12 AUTHOR: CHA ALCARAZ EXP COSIGNER: URGENCY: STATUS: COMPLETED The veterans enrollment status is "COPAY TEST RE QUIRED" The was mailed the following letter: Date: SEP 11, 2021 TRISHA ROJAS [address] [place] [address] Dear TRISHA ROJAS, According to our records, we do not have a curr ent VA Form 10-10EZR, Health Benefits Update Form, on record. This is to info rm you that your financial assessment (Copay Test) is required. Thi s determines if you will have a Co-Pay for Medications & Office visits, & also if you a re eligible for travel reimbursement and is required each year. What Do You Need to Do? Complete it entirely, sign and date the form, r eturn VA Form [id number], providing information based on calendar . What If You Have Questions? If you have questions, please contact me at [phone] or [phone], Ext: [phone] during our normal business hours of Wednesday thru Wednesday, from 8:00am to 4:00pm. Sincerely, Enrollment/Eligibility Department /nat/ CHA ALCARAZ [facility] [employer] Signed: 09/11/2021 15:29
--- OUTSIDE RECORDS SUMMARY | 2021-11-10 07:59 | External Medical Summary | Encounter Summary ---
:1950 Author Organization Department [facility] Address [address] [place] [address] Care Team Providers Name Role Phone JUAN [...] Policy Number Sw[facility]z EXPRESS [facility] Jan [facility] [id number] [phone] CRYSTAL , PATIENT SCRIPTS RE 2016 30 304 TRISHA RX DODA MEDICARE MEDICARE PART Jan 09, PART A [id number] CRYSTAL, PATIENT (WNR) (M) A 2017 30A 1213 TRISHA MEDICARE MEDICARE PART Jan 09, PART B [id number] CRYSTAL, PATIENT (WNR) (M) B 2017 30A 1213 TRISHA MEDICARE MEDICARE PART Jan 09, PART A [id number] 800 [id number] CRYSTAL, PATIENT (WNR) (M) A 2017 HN43 1213 TRISHA MEDICARE MEDICARE PART Jan 09, PART B [id number] 800 [id number] CRYSTAL, PATIENT (WNR) (M) B 2017 [id number] TRISHA -FO TRICA Jan 09, [place] [id number] [phone] NORMA SON, PATIENT R-LIFE RE-FO 2016 30 4 TRISHA R-LIF E -FO TRICA Jan 09, TFL [id number] [phone] NORMA SON, PATIENT R-LIFE WNR RE 2016 30 404 TRISHA FOR LIFE Selected Encounter This section includes the information on record at [place] for the Encounter. Date/Time Encounter Type Encounter Description Reason Provider Source Oct 01, 2021 03:55 Outpatient Encounter PRIMARY CARE/MEDICINE PM IHE Encounter Template Text not used by [place] Plan of Treatment: Future Appointments (+ 6 months) and Future Tests (+/- 45 days) The Plan of Treatment section includes future care activities for the patient from all [place] treatmentfacilities. This section includes future appointments and future orders which are active, pending orscheduled.Future Appointments This section includes appointments that were scheduled to occur 6 months from the date of the Encounter, up to a maximum of 20 appointments. The data comes from all [place] treatment [facility]. Appointment Date/Time Appointment Type Appointment Facili ty Name Oct 08, 2021 09:30 AM AMBULATORY - MEDICINE [facility] IC Oct 16, 2021 11:00 AM AMBULATORY - MEDICINE [facility] IC Active, Pending, and [...] the Encounter. The data comes from all [place] treatment [facility]. Test Date/Time Test Type Test Details Facility Name Sep 11, 2021 12:00 AM Laboratory - URINALYSIS (IRIS) URINE [facility] Chemistry Order SP Sep 11, 2021 12:00 AM Laboratory - VITAMIN D (25-HYDROXY) [facility] Chemistry Order GOLD RF SERUM SP Sep 11, 2021 12:00 AM Laboratory - COMPREHENSIVE METABOLIC [facility] Chemistry Order PANEL GOLD RF SERUM SP Sep 11, 2021 12:00 AM Laboratory - CBC & MORPHOLOGY (WITH [facility] Chemistry Order DIFF) LAV WB BLOOD Sep 11, 2021 12:00 AM Laboratory - TH[facility]ID [facility] Chemistry Order HORMONE GOLD RF SERUM SP Sep 11, 2021 12:00 AM Laboratory - LIPID PANEL GOLD RF [facility] Chemistry Order SERUM SP Sep 11, 2021 12:00 AM Laboratory - VITAMIN B-12 GOLD DK FZ [facility] Chemistry Order SERUM SP Sep 11, 2021 12:00 AM Laboratory - BNP, NT-PRO GOLD RF [facility] Chemistry Order SERUM SP Sep 11, 2021 12:00 AM Laboratory - HEMOGLOBIN A1C LAV WB RF L [facility] Chemistry Order BLOOD SP Sep 11, 2021 12:00 AM Laboratory - MAGNESIUM GOLD RF BLOOD [facility] Chemistry Order TODAY SP Sep 11, 2021 12:00 AM Laboratory - MICROALBUMIN/CREATININE [facility] Chemistry Order PANEL URINE, RANDOM SP Social History: Smoking Status (Most current) and Tobacco Use (All prior to encounter date) This section includes the most current, and the historical, smoking and tobacco-related health factors from the ID facility where the Encounter took place.Current Smoking Status This section includes the most current smoking, or tobacco-related health factor, from the ID facility where the Encounter took place. Date/Time Current Smoking Status Comment Facility Sep 17, 2006 10:16 AM QUIT TOBACCO >7 YEARS AGO PAT Canela [facility] Tobacco Use History This section includes a history of the smoking, or tobacco- related health factors, that were collected on or before the date of the Encounter. The data comes from the [place] facility where the Encounter took place. Date/Time Smoking Status/Tobacco Use Comment [facility] Sep 17, 2006 10:16 AM TOBACCO OFFERRED STOP SMOKING PAT [facility] Mar 05, 1998 02:10 PM TOBACCO PRODUCTS USER (NO) PAT Canela [facility] Advance Directives: All historical and current Section Date Range: From patient's date of to the date document was created. This section includes ALL of a patient's completed or amended [place] Advance and Rescinded Directives. The entries below indicate that a directive exists for the patient, but an actual copy is not included with this document. The data comes from all [place] facilities. Date Advance Directives Provider Source Apr 28, 2018 ADVANCE DIRECTIVE MAXIMUS DE LEÓN [facility] Encounter Notes: All associated encounter notes This section contains the clinical notes associated to the Encounter. Date/Time Encounter Note(s) Provider Source Oct 01, 2021 03:55 PM PHYSICIAN LETTERS: JUAN ANDREWS [facility] LOCAL TITLE: PHYSICIAN LETTER STANDARD TITLE: PHYSICIAN LETTERS DATE OF NOTE: OCT 01, 2021@15:55 ENTRY DATE: OCT 01, 2021@15:55:40 AUTHOR: JUAN ANDREWS COSIGNER: URGENCY: STATUS: COMPLETED [place] [facility] [address] [facility] [address] [place] [address] OCT 01, 2021 TRISHA ROJAS [address] [place] [address] Dear TRISHA ROJAS: The results of your recent tests have been revie wed. The purpose of this letter is to share those results and the provide r's recommendations with you. The DEXA scan L1-L4 T Lumbar spine score 2.5 kellie wed normal bone density improved from 2019 at 1.6 Left femoral neck T score 0.2 which is stable no rmal bone density improved from 2019 improved from 2019 at -0.03 Distal forearm T score -1.5 which is osteopenia or thinning of the bones. This was not evaluated on prior exam. 10-year probability of a major osteoporotic frac ture is 9.6% stable normal bone mineral density of the lumbar spine and femoral neck osteopenia of the distal forearm For comparison in 2019 normal bone mineral density in the lumbar spine with a T score of 1.6 hips showed a T score of -0.03 Continue current treatment Thank you RAUL Reynolds [facility] [address] [place] [address] // Juan CASTRO Nurse Practitioner Signed: 10/01/2021 16:09 Receipt Acknowledged By: * AWAITING SIGNATURE * AMINAH HULL
--- OUTSIDE RECORDS SUMMARY | 2021-11-10 07:59 | External Medical Summary | Encounter Summary ---
:[address] [facility] Address [address] [place] [address] Care Team Providers Name Role Phone JUAN [...] [facility] Number [facility]artz EXPRESS [id number] [phone] CRYSTAL , PATIENT SCRIPTS RE 2016 30 304 TRISHA RX [facility]ODA MEDICARE MEDICARE PART Jan 09, PART A [id number] CRYSTAL, PATIENT (WNR) (M) A 2017 30A 1213 TRISHA MEDICARE MEDICARE PART Jan 09, PART B [id number] 800 [id number] CRYSTAL, PATIENT (WNR) (M) B 2017 30A 1213 TRISHA MEDICARE MEDICARE PART Jan 09, PART A [id number] 800 [id number] CRYSTAL, PATIENT (WNR) (M) A 2017 HN43 1213 TR[place] MEDICARE MEDICARE PART Jan 09, PART B [id number] CRYSTAL, PATIENT (WNR) (M) B 2017 [id number] TRISHA -FO TRICA Jan 09, TFL [id number] [phone] NORMA SON, PATIENT R-LIFE RE-FO 2016 30 4 TRISHA R-LIF E -FO TRICA Jan 09, TFL [id number] [phone] NORMA SON, PATIENT R-LIFE WNR RE 2016 30 404 TRISHA FOR LIFE Selected Encounter This section includes the information on record at [place] for the Encounter. Date/Time Encounter Type Encounter Description Reason Provider Source Aug 18, 2021 03:29 Outpatient Encounter PRIMARY CARE/MEDICINE PM IHE Encounter Template Text not used by [place] Plan of Treatment: Future Appointments (+ 6 months) and Future Tests (+/- 45 days) The Plan of Treatment section includes future care activities for the patient from [facility] [place] [facility] This section includes future appointments and future orders which are active, pending orscheduled.Future Appointments This section includes appointments that were scheduled to occur 6 months from the date of the Encounter, up to a maximum of 20 appointments. The data comes from all [place] treatment [facility]. Appointment Date/Time Appointment Type Appointment Facili ty Name Oct 08, 2021 09:30 AM [facility]ORY [facility] Oct 16, 2021 11:00 AM [facility] Active, Pending, and Scheduled Orders This section includes a listing of several types of active, pending, and scheduled orders, including clinic medications orders, diagnostic test orders, procedure orders and consult orders; where the start date of the order is 45 days before the date of the Encounter or 45 days after the date of the Encounter. The data comes from all [place] treatment [facility]. Test Date/Time Test Type Test Details Facility Name Sep 11, 2021 12:00 AM Laboratory - URINALYSIS (IRIS) URINE [facility] Chemistry Order SP Sep 11, 2021 12:00 AM Laboratory - VITAMIN D (25-HYDROXY) [facility] Chemistry Order GOLD RF SERUM SP Sep 11, 2021 12:00 AM Laboratory - COMPREHENSIVE METABOLIC [facility] Chemistry Order PANEL GOLD RF SERUM SP Sep 11, 2021 12:00 AM Laboratory - CBC & MORPHOLOGY (WITH [facility] Chemistry Order DIFF) LAV WB BLOOD Sep 11, 2021 12:00 AM Laboratory - THYROID STIMULATING [facility] Chemistry Order HORMONE GOLD RF SERUM SP Sep 11, 2021 12:00 AM Laboratory - LIPID PANEL GOLD [facility] [place] [facility] Chemistry Order SERUM SP Sep 11, 2021 12:00 AM Laboratory - VITAMIN B-12 GOLD DK FZ [facility] Chemistry Order SERUM SP Sep 11, 2021 12:00 AM Laboratory - BNP, NT-PRO G[facility] [place] [facility] Chemistry Order SERUM SP Sep 11, 2021 12:00 AM Laboratory - HEMOGLOBIN A1C LAV WB RF L [facility] Chemistry Order BLOOD SP Sep 11, [...] smoking and tobacco-related health factors from the [place] facility where the Encounter took place.Current Smoking Status This section includes the most current smoking, or tobacco-related health factor, from the [place] facility where the Encounter took place. Date/Time Current Smoking Status Comment Facility Sep 17, 2006 10:16 AM QUIT TOBACCO >7 YEARS AGO PAT [facility] Tobacco Use History This section includes a history of the smoking, or tobacco- related health factors, that were collected on or before the date of the Encounter. The data comes from the [place] facility where the Encounter took place. Date/Time Smoking Status/Tobacco Use Comment [facility] Sep 17, 2006 10:16 AM TOBACCO OFFERRED STOP SMOKING [facility] Mar 05, 1998 02:10 PM TOBACCO PRODUCTS USER (NO) PAT Canela [facility] Advance Directives: All historical and current Section Date Range: From patient's date of to the date document was created. This section includes ALL of a patient's completed or amended [place] Advance and Rescinded Directives. The entries below indicate that a directive exists for the patient, but an actual copy is not included with this document. The data comes from all [place] facilities. Date Advance Directives Provider Source Apr 28, 2018 ADVANCE DIRECTIVE [facility]IM[employer] DE LE[employer] Encounter Notes: All associated encounter notes This section contains the clinical notes associated to the Encounter. Date/Time Encounter Note(s) Provider Source Aug 18, 2021 03:29 PM PHYSICIAN NOTE: CRISTINO SALINAS [facility] LOCAL TITLE: OUTSIDE MEDICAL RECORD - SUMMARY STANDARD TITLE: PHYSICIAN NOTE DATE OF NOTE: AUG 18, 2021@15:29 ENTRY DATE: AUG 18, 2021@15:29:53 AUTHOR: CRISTINO SALINAS EXP COSIGNER: URGENCY: STATUS: COMPLETED Date of Visit:08/14/2021 Outside Provider:[facility] Reason for Visit: Weakness, Impaired gait, trans fers, functional mobility and balnce, fall risk. Diagnosis: Primary diagnosis subtrochnt fx r femur subs for clos fx w routn heal (E). Discharge orders: HEP, return to primary in 1-2 weeks. Pt plans to discuss OP Pt referral with [facility] Physical Therapy. Reavaluation with goal assessm ent. /nat/ CRISTINO SALINAS [employer] Signed: 08/18/2021 15:36
--- OUTSIDE RECORDS SUMMARY | 2021-11-10 08:00 | External Medical Summary | Encounter Summary ---
:1950 Author Organization [facility] Address [address] [place] [address] Care Team Providers Name Role Phone JUAN [...] Policy Number Swartz EXPRESS TRICA Jan 09 [facility] [id number] [phone] CRYSTAL , PATIENT SCRIPTS RE 2016 30 304 TRISHA RX [place] MEDICARE MEDICARE PART Jan 09, PART A [id number] [id number] CRYSTAL, PATIENT (WNR) (M) A 2017 30A 1213 TR[place]HA MEDICARE MEDICARE PART Jan 09, PART B [id number] [id number] CRYSTAL, PATIENT (WNR) (M) B 2017 30A 1213 TRISHA MEDICARE MEDICARE PART Jan 09, PART A [id number] 800 [id number] CRYSTAL, PATIENT (WNR) (M) A 2017 HN43 1213 TR[place]HA MEDICARE MEDICARE PART Jan 09, PART B [id number] 800 [id number] CRYSTAL, PATIENT (WNR) (M) B 2017 [id number] 1213 TRISHA -FO TRICA Jan 09, TFL [id number] [phone] NORMA SON, PATIENT R-LIFE RE-FO 2016 30 4 TRISHA R-LIF E -FO TRICA Jan 09, TFL [id number] [phone] NORMA SON, PATIENT R-LIFE WNR RE 2016 30 404 TRISHA FOR LIFE Selected Encounter This section includes the information on record at [place] for the Encounter. Date/Time Encounter Type Encounter Description Reason Provider Source Jul 24, 2021 12:00 Outpatient Encounter COMMUNITY CARE PM CONSULT IHE Encounter Template Text not used by [place] Plan of Treatment: Future Appointments (+ 6 months) and Future Tests (+/- 45 days) The Plan of Treatment section includes future care activities for the patient from all [place] treatmentfacilities. This section includes future appointments and future orders which are active, pending orscheduled.Future Appointments This section includes appointments that were scheduled to occur 6 months from the date of the Encounter, up to a maximum of 20 appointments. The data comes from all [place] treatment facilities. Appointment Date/Time Appointment Type Appointment Facili ty Name Oct 08, 2021 09:30 AM AMBULATORY - MEDICINE [facility] Oct 16, 2021 11:00 AM AM[facility]ULATORY - [facility]INE [facility] Social History: Smoking Status (Most current) and Tobacco Use (All prior to encounter date) This section includes the most current, and the historical, smoking and tobacco-related health factors from the [place] facility where the Encounter took place.Current Smoking Status This section includes the most current smoking, or tobacco-related health factor, from the [place] facility where the Encounter took place. Date/Time Current Smoking Status Comment Facility Sep 17, 2006 10:16 AM QUIT TOBACCO >7 YEARS AGO [facility] Tobacco Use History This section includes a history of the smoking, or tobacco- related health factors, that were collected on or before the date of the Encounter. The data comes from the [place] facility where the Encounter took place. Date/Time Smoking Status/Tobacco Use Comment [facility] Sep 17, 2006 10:16 AM TOBACCO OFFERRED STOP SMOKING PAT [facility] Mar 05, 1998 02:10 PM TOBACCO PRODUCTS USER (NO) [facility] Advance Directives: All historical and current Section Date Range: From patient's date of to the date document was created. This section includes ALL of a patient's completed or amended [place] Advance and Rescinded Directives. The entries below indicate that a directive exists for the patient, but an actual copy is not included with this document. The data comes from all [place] facilities. Date Advance Directives Provider Source Apr 28, 2018 ADVANCE DIRECTIVE MAXIM[employer] DE LEÓN [facility] Encounter Notes: All associated encounter notes This section contains the clinical notes associated to the Encounter. Date/Time Encounter Note(s) Provider Source Jul 24, 2021 12:00 PM NONVA REPORT: HUSSEIN JACKSON LOCAL TITLE: NON-VA REPORT OTHER [facility] STANDARD TITLE: NONVA REPORT DATE OF NOTE: JUL 24, 2021@12:00 ENTRY DATE: SEP 03, 2021@08:19:41 AUTHOR: HUSSEIN JACKSON EXP COSIGNER: URGENCY: STATUS: COMPLETED NON VA Care Consult Results TS / RHEUMATOLOGY VISIT KALANI SIMPSON MD DOS: 07/24/2021 See scanned report in [facility]. /es/ HUSSEIN JACKSON CONTRACT SCANNER-ISSU Signed: 09/03/2021 08:20
--- OUTSIDE RECORDS SUMMARY | 2021-11-10 08:00 | External Medical Summary | Encounter Summary ---
:1950 Author Organization Department of [facility] Address [address] [place] [address] Care Team Providers Name Role Phone JUAN [...] Number Swartz EXPRESS TRICA Jan 09 DODA [id number] [phone] CRYSTAL , PATIENT SCRIPTS RE 2016 30 304 TRISHA RX [place] MEDICARE MEDICARE PART Jan 09, PART A [id number] CRYSTAL, PATIENT (WNR) (M) A 2017 30A 1213 TRIS[place] MEDICARE MEDICARE PART Jan 09, PART B [id number] 800 [id number] CRYSTAL, PATIENT (WNR) (M) B 2017 30A 1213 TRISHA MEDICARE MEDICARE PART Jan 09, PART A [id number] 800 [id number] CRYSTAL, PATIENT (WNR) (M) A 2017 HN43 1213 TRISHA MEDICARE MEDICARE PART Jan 09, PART B [id number] 800 [id number] CRYSTAL, PATIENT (WNR) (M) B 2017 HN43 1213 TRISHA -FO TRICA Jan 09, TFL [id number] [phone] NORMA SON, PATIENT R-LIFE RE-FO 2016 30 4 TRISHA R-LIF E -FO TRICA Jan 09, TFL [id number] [phone] NORMA SON, PATIENT R-LIFE WNR RE 2016 30 404 [facility] Selected Encounter This section includes the information on record at [place] for the Encounter. Date/Time Encounter Type Encounter Description Reason Provider Source May 28, 2021 03:07 Outpatient Encounter COMMUNITY CARE PM CONSULT IHE [...] 2021 09:30 AM AM[facility]ULATORY - MEDICINE [facility] Oct 16, 2021 11:00 AM AMBULATORY - MEDICINE [facility] Social History: Smoking Status [...] AM QUIT TOBACCO >7 [facility] AGO [facility] Tobacco Use History This section includes a history of the smoking, or tobacco- related health factors, that were collected on or before the date of the Encounter. The data comes from the [place] facility where the Encounter took place. Date/Time Smoking Status/Tobacco Use Comment [facility] Sep 17, 2006 10:16 AM TOBACCO OFFERRED STOP SMOKING PAT [facility] Mar 05, 1998 02:10 PM TOBACCO PRODUCTS USER (NO) [facility] Advance Directives: All historical and current Section Date Range: From patient's date of to the date document was created. This section includes ALL of a patient's completed or amended [place] Advance and Rescinded Directives. The entries below indicate that a directive exists for the patient, but an actual copy is not included with this document. The data comes from all [place] facilities. Date Advance Directives Provider Source Apr 28, 2018 ADVANCE DIRECTIVE MAXIM[employer] DE LEÓN [facility] Encounter Notes: All associated encounter notes This section contains the clinical notes associated to the Encounter. Date/Time Encounter Note(s) Provider Source May 28, 2021 03:07 PM CARE MANAGEMENT NOTE: EDDY ZURITA LOCAL TITLE: CARE MANAGEMENT NOTE [facility] STANDARD TITLE: CARE MANAGEMENT NOTE DATE OF NOTE: MAY 28, 2021@15:07 ENTRY DATE: MAY 28, 2021@15:07:53 AUTHOR: EDDY ZURITA EXP COSIGNER: URGENCY: STATUS: COMPLETED recieved notes from [facility] ER, vet fell, right hip pain, right hip fx. surgery with dr marr. krishant is in hospital for recover y. dos 05-27-21 /es/ EDDY ZURITA RN Signed: 05/28/2021 15:08
--- OUTSIDE RECORDS SUMMARY | 2021-11-10 08:00 | External Medical Summary | Encounter Summary ---
:1950 Author Organization Department of [facility] Address [address] [place] [address] Care Team Providers Name Role Phone JUAN [...] Number Swartz EXPRESS TRICA Jan 09 DODA [id number] [phone] CRYSTAL , PATIENT SCRIPTS RE 2016 30 304 TRISHA RX DOD[place] MEDICARE MEDICARE PART Jan 09, PART A [id number] CRYSTAL, PATIENT (WNR) (M) A 2017 30A 1213 TRISHA MEDICARE MEDICARE PART Jan 09, PART B [id number] 800 [id number] CRYSTAL, PATIENT (WNR) (M) B 2017 30A 1213 TRIS[place] MEDICARE MEDICARE PART Jan 09, PART A [id number] 800 772 CRYSTAL, PATIENT (WNR) (M) A 2017 HN43 1213 TR[place] MEDICARE MEDICARE PART Jan 09, PART B [id number] 800 [id number] CRYSTAL, PATIENT (WNR) (M) B 2017 HN43 1213 TRISHA -FO TRICA Jan 09, TFL [id number] [phone] NORMA SON, PATIENT R-LIFE RE-FO 2016 30 4 TRISHA R-LIF E -FO TRICA Jan 09, TFL [id number] [phone] NORMA SON, PATIENT R-LIFE WNR RE 2016 30 404 [facility]IS[facility] FOR LIFE Selected Encounter This section includes the information on record at [place] for the Encounter. Date/Time Encounter Type Encounter Description Reason Provider Source Jul 24, 2021 08:56 Outpatient Encounter TELEPHONE TRIAGE AM IHE Encounter Template Text not used by [...] The data comes from all [place] treatment facilities. Appointment Date/Time Appointment Type Appointment Facili ty Name Oct 08, 2021 09:30 AM AMBULATORY - MEDICINE [facility] Oct 16, 2021 11:00 AM AMBULATORY - MEDICINE [facility] Social History: Smoking Status (Most [...] AM QUIT TOBACCO >7 YEARS AGO [facility] Tobacco Use History This section includes a history of the smoking, or tobacco- related health factors, that were collected on or before the date of the Encounter. The data comes from the [place] facility where the Encounter took place. Date/Time Smoking Status/Tobacco Use Comment [facility] Sep 17, 2006 10:16 AM TOBACCO OFFERRED STOP SMOKING PAT [facility] Mar 05, 1998 02:10 PM TOBACCO PRODUCTS USER (NO) [facility] Advance Directives: All historical and current [...] 28, 2018 ADVANCE DIRECTIVE MAXIMUS DE LEÓN [facility] Encounter Notes: All associated encounter notes This section contains the clinical notes associated to the Encounter. Date/Time Encounter Note(s) Provider Source Jul 24, 2021 08:56 AM PRIMARY CARE MEDICATION MGT NOTE: DARRYL PENDLETON [facility] LOCAL TITLE: MEDICATION RENEWAL REQUEST STANDARD TITLE: PRIMARY CARE MEDICATION MGT NOTE DATE OF NOTE: JUL 24, 2021@08:56 ENTRY DATE: JUL 24, 2021@08:56:29 AUTHOR: DARRYL PENDLETON EXP COSIGNER: URGENCY: STATUS: COMPLETED MEDICATION RENEWAL REQUEST Has [facility] Pharmacy has received a refill request that cinthia ot be processed unless acted upon by the prescriber. Please expedite an assessment for concurrence, and if appropriate, generate a [facility] medication order for the following: METHOTREXATE TAB 2.5MG TAKE TEN TABLETS BY MOUTH EVERY 7 DAYS ONCE A WEEK FOR PSORIATIC ARTHRITIS Quantity: 120 Refills: 3 If you do not concur with the patient's request to refill this medication, please communicate your decision directly to the patient. /nat/ Darryl Pendleton Senior Case Manager Signed: 07/24/2021 08:56 Receipt Acknowledged By: * AWAITING SIGNATURE * JUAN ANDREWS 07/25/2021 08:38 /nat/ LAKISHA ABDULLAHI RN for EDDY ZURITA 07/24/2021 11:49 /es/ RENNY Lund 07/25/2021 ADDENDUM STATUS: COMPLETED since 08/02/20. Deferring to PCP. /nat/ LAKISHA ABDULLAHI RN Signed: 07/25/2021 08:38
--- OUTSIDE RECORDS SUMMARY | 2021-11-10 08:01 | External Medical Summary | Encounter Summary ---
:1950 Author Organization Department [facility] Address [address] [place] [address] Care Team Providers Name Role Phone JUAN [...] Number Swartz EXPRESS TRICA Jan 09 D[facility]A [id number] [phone] CRYSTAL , PATIENT SCRIPTS RE 2016 30 304 TRISHA RX [place] MEDICARE MEDICARE PART Jan 09, PART A [id number] CRYSTAL, PATIENT (WNR) (M) A 2017 30A 1213 [facility] MEDICARE MEDICARE PART Jan 09, PART B [id number] 800 772 CRYSTAL, PATIENT (WNR) (M) B 2017 30A 1213 [facility] MEDICARE MEDICARE PART Jan 09, PART A [id number] 800 772 CRYSTAL, PATIENT (WNR) (M) A 2017 HN43 1213 TR[place] MEDICARE MEDICARE PART Jan 09, PART B [id number] 800 [id number] CRYSTAL, PATIENT (WNR) (M) B 2017 HN43 1213 TRISHA -FO TRICA Jan 09, TFL [id number] [phone] NORMA SON, PATIENT R-LIFE RE-FO 2016 30 4 TRISHA R-LIF E -FO TRICA Jan 09, TFL [id number] [phone] NORMA SON, PATIENT R-LIFE WNR RE 2016 30 404 [facility] FOR LIFE Selected Encounter This section includes the information on record at [place] for the Encounter. Date/Time Encounter Type Encounter Description Reason Provider Source Apr 17, 2021 12:00 Outpatient Encounter EVENT (HISTORICAL) AM IHE Encounter Template Text not used by [place] Plan of Treatment: Future Appointments (+ 6 months) and Future Tests (+/- 45 days) The Plan of Treatment section includes future care activities for the patient from all [place] treatmentfacilities. This section includes future appointments and future orders which are active, pending orscheduled.Future Appointments This section includes appointments that were scheduled to occur 6 months from the date of the Encounter, up to a maximum of 20 appointments. The data comes from all [place] treatment facilities. Appointment Date/Time Appointment Type Appointment Facili ty Name Oct 08, 2021 09:30 AM AMBULATORY - MEDICINE [facility] Oct 16, 2021 11:00 AM AMBULATORY - MEDICINE [facility] Immunizations: All administered on the encounter date This section contains immunizations associated to the Encounter. Immunization Series Date Issued Reaction Comments COVID-19 (PFIZER), MRNA, LNP-S, PF, 30 MCG/0.3 3 Apr 17, 2021 ML DOSE Social History: Smoking Status (Most current) and Tobacco Use (All prior to encounter date) This section includes the most current, and the historical, smoking and tobacco-related health factors from the [place] facility where the Encounter took place.Current Smoking Status This section includes the most current smoking, or tobacco-related health factor, from the [place] facility where the Encounter took place. Date/Time Current Smoking Status Comment Facility Sep 17, 2006 10:16 AM QUIT TOBACCO >7 YEARS AGO PAT [facility] Tobacco Use History This section includes a history of the smoking, or tobacco- related health factors, that were collected on or before the date of the Encounter. The data comes from the [place] facility where the Encounter took place. Date/Time Smoking Status/Tobacco Use Comment Facil ity Sep 17, 2006 10:16 AM TOBACCO OFFERRED STOP SMOKING PAT [facility] Mar 05, 1998 02:10 PM TOBACCO PRODUCTS USER (NO) PAT [facility]Y [facility] Advance Directives: All historical and current Section Date Range: From patient's date of to the date document was created. This section includes ALL of a patient's completed or amended [place] Advance and Rescinded Directives. The entries below indicate that a directive exists for the patient, but an actual copy is not included with this document. The data comes from all [place] facilities. Date Advance Directives Provider Source Apr 28, 2018 ADVANCE DIRECTIVE MAXIMUS DE LEÓN [facility]
--- OUTSIDE RECORDS SUMMARY | 2021-11-10 08:01 | External Medical Summary | Encounter Summary ---
:1950 Author Organization Department of [facility] Address [address] [place] [address] Care Team Providers Name Role Phone JUAN [...] [facility] [id number] [phone] CRYSTAL , PATIENT SCRIPTS RE 2016 30 304 TRISHA RX DODA MEDICARE MEDICARE PART Jan 09, PART A [id number] CRYSTAL, PATIENT (WNR) (M) A 2017 30A 1213 TRISHA MEDICARE MEDICARE PART Jan 09, PART B [id number] CRYSTAL, PATIENT (WNR) (M) B 2017 30A 1213 TRISHA MEDICARE MEDICARE PART Jan 09, PART A [id number] 800 [id number] CRYSTAL, PATIENT (WNR) (M) A 2017 HN43 1213 TRISHA MEDICARE MEDICARE PART Jan 09, PART B [id number] 800 [id number] CRYSTAL, PATIENT (WNR) (M) B 2017 [id number] TRISHA -FO TRICA Jan 09, TFL [id number] [phone] NORMA SON, PATIENT R-LIFE RE-FO 2016 30 4 TRISHA R-LIF E -FO TRICA Jan 09, TFL [id number] [phone] NORMA SON, PATIENT R-LIFE WNR RE 2016 30 404 TRISHA FOR LIFE Selected Encounter This section includes the information on record at [place] for the Encounter. Date/Time Encounter Type Encounter Description Reason Provider Source May 27, 2021 12:00 Outpatient Encounter COMMUNITY CARE PM CONSULT IHE Encounter Template Text not used by [place] Plan of Treatment: Future Appointments (+ 6 months) and Future Tests (+/- 45 days) The Plan of Treatment section includes future care activities for the patient from all [place] treatmentfacilities. This section includes future appointments and future orders which are active, pending orscheduled.Future Appointments This section includes appointments that were scheduled to occur 6 months from the date of the Encounter, up to a maximum of 20 appointments. The data comes from all [place] treatment facilities. Appointment Date/Time Appointment Type Appointment Facili ty Name Oct 08, 2021 09:30 AM AMBULATORY - MEDICINE [facility] Oct 16, 2021 11:00 AM AMBULATORY - MEDICINE [facility] Social History: Smoking Status (Most current) and Tobacco Use (All prior to encounter date) This section includes the most current, and the historical, smoking and tobacco-related health factors from the [place] facility where the Encounter took place.Current Smoking Status This section includes the most current smoking, or tobacco-related health factor, from the [place] facility where the Encounter took place. Date/Time Current Smoking Status Comment Facility Sep 17, 2006 10:16 AM QUIT TOBACCO >7 YEARS AGO [facility] Tobacco Use History This section includes a history of the smoking, or tobacco- related health factors, that were collected on or before the date of the Encounter. The data comes from the [place] facility where the Encounter took place. Date/Time Smoking Status/Tobacco Use Comment [facility] Sep 17, 2006 10:16 AM TOBACCO OFFERRED STOP SMOKING PAT GODFREY [facility] Mar 05, 1998 02:10 PM TOBACCO PRODUCTS USER (NO) [facility] Advance Directives: All historical and current Section Date Range: From patient's date of to the date document was created. This section includes ALL of a patient's completed or amended [place] Advance and Rescinded Directives. The entries below indicate that a directive exists for the patient, but an actual copy is not included with this document. The data comes from all [place] facilities. Date Advance Directives Provider Source Apr 28, 2018 ADVANCE DIRECTIVE MAXIMUS DE LEÓN [facility] Encounter Notes: All associated encounter notes This section contains the clinical notes associated to the Encounter. Date/Time Encounter Note(s) Provider Source May 27, 2021 12:00 PM NONVA REPORT: LEONEL COSTA LOCAL TITLE: NON-VA REPORT OTHER [facility] STANDARD TITLE: NONVA REPORT DATE OF NOTE: MAY 27, 2021@12:00 ENTRY DATE: JUL 08, 2021@11:21:30 AUTHOR: LEONEL COSTA EXP COSIGNER: URGENCY: STATUS: COMPLETED See scanned report in [facility]. NON VA Care Consult Results [facility] PRASANNA JALLOH MD DOS: 05/27/21 See scanned report in [facility]. /nat/ LEONEL COSTA Signed: 07/08/2021 11:23 May 27, 2021 12:00 PM NONVA REPORT: LEONEL COSTA [facility] TITLE: NON-VA REPORT OTHER [facility] STANDARD TITLE: NONVA REPORT DATE OF NOTE: MAY 27, 2021@12:00 ENTRY DATE: JUL 29, 2021@10:05:22 AUTHOR: LEONEL COSTA EXP COSIGNER: URGENCY: STATUS: COMPLETED The following Non VA Care consult has been comp leted. See scanned document for report. NON VA Care Consult Results [facility] DESTINY BRAMBILA PA-C DOS: 05/27/21 See scanned report in [facility]. /nat/ LEONEL COSTA Signed: 07/29/2021 10:05 May 27, 2021 12:00 PM SCANNED NONVA NOTE: LEONEL COSTA LOCAL TITLE: NON-VA IMAGING NOTE [facility] STANDARD TITLE: SCANNED NONVA NOTE DATE OF NOTE: MAY 27, 2021@12:00 ENTRY DATE: JUL 29, 2021@11:48:12 AUTHOR: LEONEL COSTA EXP COSIGNER: URGENCY: STATUS: COMPLETED See scanned report in [facility]. NON VA Care Consult Results [facility] MIRACLE BYRNES MD DOS: 05/27/21 See scanned report in [facility]. /es/ LEONEL OCSTA Signed: 07/29/2021 11:49
--- OUTSIDE RECORDS SUMMARY | 2021-11-10 08:01 | External Medical Summary | Encounter Summary ---
:1950 Author Organization Department of [facility] Address [address] [place] [address] Care Team Providers Name Role Phone JUAN [...] Policy Number Swartz EXPRESS [facility] [id number] [phone] CRYSTAL , PATIENT SCRIPTS RE 2016 30 304 TRISHA RX DODA MEDICARE MEDICARE PART Jan 09, PART A [id number] CRYSTAL, PATIENT (WNR) (M) A 2017 30A 1213 TRISHA MEDICARE MEDICARE PART Jan 09, PART B [id number] 800 [id number] CRYSTAL, PATIENT (WNR) (M) B 2017 30A 1213 TRISHA MEDICARE MEDICARE PART Jan 09, PART A [id number] 800 [id number] CRYSTAL, PATIENT (WNR) (M) A 2017 HN43 1213 TRISHA MEDICARE MEDICARE PART Jan 09, PART B [id number] 800 [id number] CRYSTAL, PATIENT (WNR) (M) B 2017 HN43 1213 TRISHA -FO TRICA Jan 09, TFL [id number] [phone] NORMA SON, PATIENT R-LIFE RE-FO 2017 30 4 TRISHA R-LIF E -FO TRICA Jan 09, TFL [id number] [phone] NORMA SON, PATIENT R-LIFE WNR RE 2016 30 404 TRISHA FOR LIFE Selected Encounter This section includes the information on record at [place] for the Encounter. Date/Time Encounter Type Encounter Description Reason Provider Source May 17, 2021 11:29 Outpatient Encounter PRIMARY CARE/MEDICINE AM IHE Encounter Template Text not used by [place] Plan of Treatment: Future Appointments (+ 6 months) and Future Tests (+/- 45 days) The Plan of Treatment section includes future care activities for the patient from all [place] treatmentfacilities. This section includes future appointments and future orders which are active, pending orscheduled.Future Appointments This section includes appointments that were scheduled to occur 6 months from the date of the Encounter, up to a maximum of 20 appointments. The data comes from all [place] treatment facilities. Appointment Date/Time Appointment Type Appointment Facili ty Name Oct 08, 2021 09:30 AM AMBULATORY - MEDICINE [facility] Oct 16, 2021 11:00 AM AMBULATORY - MEDICINE [facility] Social History: Smoking Status (Most current) and Tobacco Use (All prior to encounter date) This section includes the most current, and the historical, smoking and tobacco-related health factors from the [place] facility where the Encounter took place.Current Smoking Status This section includes the most current smoking, or tobacco-related health factor, from the [place] facility where the Encounter took place. Date/Time Current Smoking Status Comment Facility Sep 17, 2006 10:16 AM QUIT TOBACCO >7 YEARS AGO [facility] Tobacco Use History This section includes a history of the smoking, or tobacco- related health factors, that were collected on or before the date of the Encounter. The data comes from the [place] facility where the Encounter took place. Date/Time Smoking Status/Tobacco Use Comment [facility] Sep 17, 2006 10:16 AM TOBACCO OFFERRED STOP SMOKING PAT GODFREY [facility] Mar 05, 1998 02:10 PM TOBACCO PRODUCTS USER (NO) [facility] Advance Directives: All historical and current Section Date Range: From patient's date of to the date document was created. This section includes ALL of a patient's completed or amended [place] Advance and Rescinded Directives. The entries below indicate that a directive exists for the patient, but an actual copy is not included with this document. The data comes from all [place] facilities. Date Advance Directives Provider Source Apr 28, 2018 ADVANCE DIRECTIVE MAXIMUS DE LEÓN [facility] Encounter Notes: All associated encounter notes This section contains the clinical notes associated to the Encounter. Date/Time Encounter Note(s) Provider Source May 17, 2021 11:29 AM NURSING IMMUNIZATION NOTE: WADE LUCIA I [facility] LOCAL TITLE: VAAES NSG COVID-19 VACCINE ADMINIS TRATION STANDARD TITLE: NURSING IMMUNIZATION NOTE DATE OF NOTE: MAY 17, 2021@11:29 ENTRY DATE: MAY 17, 2021@11:29:53 AUTHOR: LORRAINE LUCIA I EXP COSIGNER: URGENCY: STATUS: COMPLETED Pfizer COVID-19 Vaccine given previously Patient received a prior dose of the Pfizer COVI D-19 Vaccine. Date: April 17, 2021 Series: Series 3 Location: [facility] // LORRAINE LUCIA LPN Signed: 05/17/2021 11:30
--- OUTSIDE RECORDS SUMMARY | 2021-11-10 08:01 | External Medical Summary | Encounter Summary ---
:1950 Author Organization Department of [facility] Address [address] [place] [address] Care Team Providers Name Role Phone JUAN [...] Number Swartz EXPRESS TRICA Jan 09 DODA [id number] [phone] CRYSTAL , PATIENT SCRIPTS RE 2016 30 304 TRISHA RX DODA MEDICARE MEDICARE PART Jan 09, PART A [id number] CRYSTAL, PATIENT (WNR) (M) A 2017 30A 1213 TRISHA MEDICARE MEDICARE PART Jan 09, PART B [id number] 800 [id number] CRYSTAL, PATIENT (WNR) (M) B 2017 30A 1213 TRISHA MEDICARE MEDICARE PART Jan 09, PART A [id number] 800 [id number] CRYSTAL, PATIENT (WNR) (M) A 2017 HN43 1213 TRSIHA MEDICARE MEDICARE PART Jan 09, PART B [id number] [phone] CRYSTAL, PATIENT (WNR) (M) B 2017 HN43 1213 TRISHA -FO TRICA Jan 09, TF [id number] [phone] NORMA SON, PATIENT R-LIFE RE-FO 2016 30 4 TRISHA R-LIF E -FO TRICA Jan 09, TF [id number] [phone] NORMA SON, PATIENT R-LIFE WNR RE 2016 30 404 TRISHA FOR LIFE Selected Encounter This section includes the information on record at [place] for the Encounter. Date/Time Encounter Type Encounter Reason Provider Source Description May 17, 2021 OFFICE O/P EST PRIMARY ICD-10-CM Z23 RONNI NARVAEZ 11:20 AM MINIMAL PROB CARE/MEDICINE Encounter for G immunization with Provider Comments: Encounter for Immunization IHE Encounter Template Text not used by [place] Assessments - Encounter Diagnoses This section includes the primary and secondary diagnoses documented for the Encounter. Date/Time Primary/Secondary Diagnosis Name Provider Source Diagnosis May 17, 2021 PRIMARY Encounter for NARVAEZRONNI [facility] 11:21 AM immunization CLINIC Plan of Treatment: Future Appointments (+ 6 months) and Future Tests (+/- 45 days) The Plan of Treatment section includes future care activities for the patient from all [place] treatmentfacilities. This section includes future appointments and future orders which are active, pending orscheduled.Future Appointments This section includes appointments that were scheduled to occur 6 months from the date of the Encounter, up to a maximum of 20 appointments. The data comes from all [place] treatment facilities. Appointment Date/Time Appointment Type Appointment Facili ty Name Oct 08, 2021 09:30 AM AMBULATORY - MEDICINE [facility] Oct 16, 2021 11:00 AM AMBULATORY - MEDICINE [facility] Surgical Procedures: All associated to the encounter This section includes all Surgical Procedures and Surgical Procedure Notes associated to the Encounter.Surgical Procedures This section includes all Surgical Procedures associated to the Encounter.Surgical Procedure Date/Time Procedure Procedure Type Procedure Provider Source Qualifiers May 17, 2021 IMMUNIZATION IMMUNIZATION RONNI NARVAEZ [place] 11:20 AM ADMIN,1 INJECTION ADMIN G CLINIC Surgical Notes There are no notes associat ed with this procedure. Immunizations: All administered on the encounter date This section contains immunizations associated to the Encounter. Immunization Series Date Issued Reaction Comments INFLUENZA VACCINE, QUADRIVALENT, ADJUVANTED May 17 Social History: Smoking Status (Most current) and Tobacco Use (All prior to encounter date) This section includes the most current, and the historical, smoking and tobacco-related health factors from the [place] facility where the Encounter took place.Current Smoking Status This section includes the most current smoking, or tobacco-related health factor, from the [place] facility where the Encounter took place. Date/Time Current Smoking Status Comment Facility Sep 03, 2020 02:00 PM VA-TOBACCO FORMER USER [facility] Tobacco Use History This section includes a history of the smoking, or tobacco- related health factors, that were collected on or before the date of the Encounter. The data comes from the [facility] where the Encounter took place. Date/Time Smoking Status/Tobacco Use Comment [facility] it Sep 03, 2020 02:00 PM VA-TOBACCO QUIT 15 YRS OR MORE [facility] Aug 02, 2019 10:25 AM VA-TOBACCO FORMER USER [facility] Aug 02, 2019 10:25 AM VA-TOBACCO QUIT 15 YRS OR MORE [facility] Jul 14, 2018 09:40 AM VA-TOBACCO FORMER USER [facility] Jul 14, 2018 09:40 AM VA-TOBACCO QUIT 15 YRS OR MORE [facility] Aug 16, 2017 11:09 AM QUIT TOBACCO >7 YEARS AGO [facility] Aug 16, 2017 11:09 AM TOBACCO SCREEN COMPLETED [facility] Advance Directives: All historical and current Section Date Range: From patient's date of to the date document was created. This section includes ALL of a patient's completed or amended [place] Advance and Rescinded Directives. The entries below indicate that a directive exists for the patient, but an actual copy is not included with this document. The data comes from all [facility]. Date Advance Directives Provider Source Apr 28, 2018 ADVANCE DIRECTIVE MAXIMUS DE LEÓN [facility] Encounter Notes: All associated encounter notes This section contains the clinical notes associated to the Encounter. Date/Time Encounter Note(s) Provider Source May 17, 2021 11:20 AM NURSING IMMUNIZATION NOTE[facility] TITLE: IMMUNIZATIONS/PPD NOTE STANDARD TITLE: NURSING IMMUNIZATION NOTE DATE OF NOTE: MAY 17, 2021@11:20 ENTRY DATE: MAY 17, 2021@11:20:15 AUTHOR: RONNI NARVAEZ EXP COSIGNER: URGENCY: STATUS: COMPLETED ALLERGIES/ADVERSE REACTIONS: CAPSAICIN Clinical Reminders Done Today Influenza Immunization: The patient was given the influenza VIS which l ists the benefits and side effects of the vaccine and which reviews the ri sks of not receiving the flu vaccine. The VIS was reviewed with the patient and they were given an opportunity to ask questions. The patient was p rovided education on how to decrease the risk of influenza infection inc luding social distancing and use of good hand hygiene. The patient denied an y prior severe reaction to the flu vaccine or its components. The patient gave verbal consent to receive the vaccine. The seasonal influenza vaccine VIS given to the patient: VIS version date Feb. The patient received seasonal influenza vaccine today - Influenza, Quadrivalent, Adjuvanted (Fluad) 0.5 ml IM toda y in Left Deltoid. Center Human Resources Manager: [employer] Lot # and Expiration Date: [id number]; 01/08/2022 Administered by protocol/policy /es/ RONNI NARVAEZ LPN Signed: 05/17/2021 11:21
--- OUTSIDE RECORDS SUMMARY | 2021-11-10 08:02 | External Medical Summary | Encounter Summary ---
:1950 Author Organization Department of [facility] Address [address] [place] [address] Care Team Providers Name Role Phone JUAN [...] Policy Number [facility]z [facility] [id number] [phone] CRYSTAL , PATIENT SCRIPTS RE 2016 30 304 TRISHA RX DODA MEDICARE MEDICARE PART Jan 09, PART A [id number] CRYSTAL, PATIENT (WNR) (M) A 2017 30A 1213 TIRSHA MEDICARE MEDICARE PART Jan 09, PART B [id number] 800 [id number] CRYSTAL, PATIENT (WNR) (M) B 2017 30A 1213 TRISHA MEDICARE MEDICARE PART Jan 09, PART A [id number] 800 [id number] CRYSTAL, PATIENT (WNR) (M) A 2017 HN43 1213 TRISHA MEDICARE MEDICARE PART Jan 09, PART B [id number] 800 [id number] CRYSTAL, PATIENT (WNR) (M) B 2017 HN43 1213 TRISHA -FO TRICA Jan 09, TF [id number] [phone] NORMA SON, PATIENT R-LIFE RE-FO 2016 30 4 TRISHA R-LIF E -FO TRICA Jan 09, TFL [id number] [phone] NORMA SON, PATIENT R-LIFE WNR RE 2016 30 404 TRISHA FOR LIFE Selected Encounter This section includes the information on record at [place] for the Encounter. Date/Time Encounter Type Encounter Description Reason Provider Source Feb 04, 2021 12:00 Outpatient Encounter COMMUNITY CARE PM CONSULT IHE Encounter Template Text not used by [place] Social History: Smoking Status (Most current) and Tobacco Use (All prior to encounter date) This section includes the most current, and the historical, smoking and tobacco-related health factors from the [place] facility where the Encounter took place.Current Smoking Status This section includes the most current smoking, or tobacco-related health factor, from the [place] facility where the Encounter took place. Date/Time Current Smoking Status Comment Facility Sep 17, 2006 10:16 AM QUIT TOBACCO >7 YEARS AGO PAT Canela [facility] Tobacco Use History This section includes a history of the smoking, or tobacco- related health factors, that were collected on or before the date of the Encounter. The data comes from the [place] facility where the Encounter took place. Date/Time Smoking Status/Tobacco Use Comment [facility] Sep 17, 2006 10:16 AM TOBACCO OFFERRED STOP SMOKING PAT GODFREY [facility] Mar 05, 1998 02:10 PM TOBACCO PRODUCTS USER (NO) PAT Canela [facility] Advance Directives: All historical and current Section Date Range: From patient's date of to the date document was created. This section includes ALL of a patient's completed or amended [place] Advance and Rescinded Directives. The entries below indicate that a directive exists for the patient, but an actual copy is not included with this document. The data comes from all [place] facilities. Date Advance Directives Provider Source Apr 28, 2018 ADVANCE DIRECTIVE MAXIMUS DE LEÓN [facility] Encounter Notes: All associated encounter notes This section contains the clinical notes associated to the Encounter. Date/Time Encounter Note(s) Provider Source Feb 04, 2021 12:00 PM NONVA CONSULT: HOLLAND REED LOCAL TITLE: COMMUNITY CARE-CONSULT RESULT NOTE [facility] STANDARD TITLE: NONVA CONSULT DATE OF NOTE: FEB 04, 2021@12:00 ENTRY DATE: MAR 01, 2021@21:51:05 AUTHOR: HOLLAND REED EXP COSIGNER: URGENCY: STATUS: COMPLETED COMMUNITY CARE-CONSULT RESULT NOTE Has ADDE NDA The following Non VA Care consult has been compl eted. See scanned document for report. NON VA Care Consult Results [facility] MATTHEW OLIVEIRA DOS: 02/04/2021 /nat/ HOLLAND REED Signed: 03/01/2021 21:52 02/04/2021 ADDENDUM STATUS: COMPLETED The following Non VA Care consult has been compl eted. See scanned document for report. NON VA Care Consult Results [facility] INITIAL EVALUATION SORAYA WHEATLEY DPT DOS: 02/04/2021 /nat/ HOLLAND REED Signed: 03/02/2021 13:49
--- OUTSIDE RECORDS SUMMARY | 2021-11-10 08:02 | External Medical Summary | Encounter Summary ---
:1950 Author Organization Department of [facility] Address [address] [place] [address] Care Team Providers Name Role Phone JUAN [...] Policy Number [facility]z [facility] [id number] [phone] CRYSTAL , PATIENT SCRIPTS RE 2016 30 304 TRISHA RX DODA MEDICARE MEDICARE PART Jan 09, PART A [id number] CRYSTAL, PATIENT (WNR) (M) A 2017 30A 1213 TRISHA MEDICARE MEDICARE PART Jan 09, PART B [id number] 800 772 CRYSTAL, PATIENT (WNR) (M) B 2017 30A 1213 TRISHA MEDICARE MEDICARE PART Jan 09, PART A [id number] 800 772 CRYSTAL, PATIENT (WNR) (M) A 2017 HN43 1213 TRISHA MEDICARE MEDICARE PART Jan 09, PART B [id number] 800 772 CRYSTAL, PATIENT (WNR) (M) B 2017 HN43 1213 TRISHA -FO TRICA Jan 09, TF [id number] [phone] NORMA SON, PATIENT R-LIFE RE-FO 2016 30 4 TRISHA R-LIF E -FO TRICA Jan 09, TFL [id number] [phone] NORMA SON, PATIENT R-LIFE WNR RE 2016 30 404 TRISHA FOR LIFE Selected Encounter This section includes the information on record at [place] for the Encounter. Date/Time Encounter Type Encounter Description Reason Provider Source Mar 20, 2021 12:00 Outpatient Encounter COMMUNITY CARE PM CONSULT IHE Encounter Template Text not used by [place] Social History: Smoking Status (Most current) and Tobacco Use (All prior to encounter date) This section includes the most current, and the historical, smoking and tobacco-related health factors from the [place] facility where the Encounter took place.Current Smoking Status This section includes the most current smoking, or tobacco-related health factor, from the [place] facility where the Encounter took place. Date/Time Current Smoking Status Comment Facility Sep 17, 2006 10:16 AM QUIT TOBACCO >7 YEARS AGO PAT Canela [facility] Tobacco Use History This section includes a history of the smoking, or tobacco- related health factors, that were collected on or before the date of the Encounter. The data comes from the [place] facility where the Encounter took place. Date/Time Smoking Status/Tobacco Use Comment [facility] Sep 17, 2006 10:16 AM TOBACCO OFFERRED STOP SMOKING PAT GODFREY [facility] Mar 05, 1998 02:10 PM TOBACCO PRODUCTS USER (NO) PAT Canela [facility] Advance Directives: All historical and current Section Date Range: From patient's date of to the date document was created. This section includes ALL of a patient's completed or amended [place] Advance and Rescinded Directives. The entries below indicate that a directive exists for the patient, but an actual copy is not included with this document. The data comes from all [place] facilities. Date Advance Directives Provider Source Apr 28, 2018 ADVANCE DIRECTIVE MAXIMUS DE LEÓN [facility] Encounter Notes: All associated encounter notes This section contains the clinical notes associated to the Encounter. Date/Time Encounter Note(s) Provider Source Mar 20, 2021 12:00 PM NONVA CONSULT: LEONEL COSTA LOCAL TITLE: COMMUNITY CARE-CONSULT RESULT NOTE [facility] STANDARD TITLE: NONVA CONSULT DATE OF NOTE: MAR 20, 2021@12:00 ENTRY DATE: MAY 01, 2021@14:11:17 AUTHOR: LEONEL COSTA EXP COSIGNER: URGENCY: STATUS: COMPLETED The following Non VA Care consult has been comp leted. See scanned document for report. NON VA Care Consult Results [facility] JUAN ANDREWS DOS: 03/20/21 /nat/ LEONEL COSTA Signed: 05/01/2021 14:11
--- OUTSIDE RECORDS SUMMARY | 2021-11-10 08:02 | External Medical Summary | Encounter Summary ---
:1950 Author Organization Department of [facility] Address [address] [place] [address] Care Team Providers Name Role Phone JUAN [...] Policy Number [facility] [id number] [phone] CRYSTAL , PATIENT SCRIPTS RE 2016 30 304 TR[facility]HA RX [place] MEDICARE MEDICARE PART Jan 09, PART A [id number] CRYSTAL, PATIENT (WNR) (M) A 2017 30A 1213 [facility] MEDICARE MEDICARE PART Jan 09, PART B [id number] 800 [id number] CRYSTAL, PATIENT (WNR) (M) B 2017 30A 1213 [facility] MEDICARE MEDICARE PART Jan 09, PART A [id number] 800 [id number] CRYSTAL, PATIENT (WNR) (M) A 2017 HN43 1213 [facility] MEDICARE MEDICARE PART Jan 09, PART B [id number] 800 [id number] CRYSTAL, PATIENT (WNR) (M) B 2017 [id number] TRISHA -FO TRICA Jan 09, TFL [id number] [phone] NORMA SON, PATIENT R-LIFE RE-FO 2016 30 4 TRISHA R-LIF E -FO TRICA Jan 09, TFL [id number] [phone] NORMA SON, PATIENT R-LIFE WNR RE 2016 30 404 [facility] FOR LIFE Selected Encounter This section includes the information on record at [place] for the Encounter. Date/Time Encounter Type Encounter Description Reason Provider Source Dec 25, 2020 12:00 Outpatient Encounter COMMUNITY CARE PM CONSULT IHE Encounter Template Text not used by [place] Plan of Treatment: Future Appointments (+ 6 months) and Future Tests (+/- 45 days) The Plan of Treatment section includes future care activities for the patient from all [place] treatmentfacilities. This section includes future appointments and future orders which are active, pending orscheduled.Future Appointments This section includes appointments that were scheduled to occur 6 months from the date of the Encounter, up to a maximum of 20 appointments. The data comes from all [place] treatment facilities. Appointment Date/Time Appointment Type Appointment Facili ty Name Feb 04, 2021 08:00 AM AMBULATORY - NONE PAT ENRIQUEZ [facility] Social History: Smoking Status (Most current) and Tobacco Use (All prior to encounter date) This section includes the most current, and the historical, smoking and tobacco-related health factors from the [place] facility where the Encounter took place.Current Smoking Status This section includes the most current smoking, or tobacco-related health factor, from the [place] facility where the Encounter took place. Date/Time Current Smoking Status Comment Facility Sep 17, 2006 10:16 AM QUIT TOBACCO >7 YEARS AGO [facility] Tobacco Use History This section includes a history of the smoking, or tobacco- related health factors, that were collected on or before the date of the Encounter. The data comes from the [place] facility where the Encounter took place. Date/Time Smoking Status/Tobacco Use Comment [facility] Sep 17, 2006 10:16 AM TOBACCO OFFERRED STOP SMOKING PAT GODFREY [facility] Mar 05, 1998 02:10 PM TOBACCO PRODUCTS USER (NO) [facility] Advance Directives: All historical and current Section Date Range: From patient's date of to the date document was created. This section includes ALL of a patient's completed or amended VA Advance and Rescinded Directives. The entries below indicate that a directive exists for the patient, but an actual copy is not included with this document. The data comes from all [place] facilities. Date Advance Directives Provider Source Apr 28, 2018 ADVANCE DIRECTIVE MAXIMUS DE LEÓN [facility] Encounter Notes: All associated encounter notes This section contains the clinical notes associated to the Encounter. Date/Time Encounter Note(s) Provider Source Dec 25, 2020 12:00 PM NONVA CONSULT: HUSSEIN JACKSON LOCAL TITLE: COMMUNITY CARE-CONSULT RESULT NOTE [facility] STANDARD TITLE: NONVA CONSULT DATE OF NOTE: DEC 25, 2020@12:00 ENTRY DATE: FEB 06, 2021@12:20:23 AUTHOR: HUSSEIN JACKSON EXP COSIGNER: URGENCY: STATUS: COMPLETED The following Non VA Care consult has been compl eted. See scanned document for report. NON VA Care Consult Results [facility] CARDIOLOGY FOLLOW UP [facility] DOS: 12/25/2020 /nat/ HUSSEIN JACKSON CONTRACT SCANNER-ISSU Signed: 02/06/2021 12:21
--- OUTSIDE RECORDS SUMMARY | 2021-11-10 08:02 | External Medical Summary | Encounter Summary ---
:1950 Author Organization Department of [facility] Address [address] [place] [address] Care Team Providers Name Role Phone JUAN [...] Number Swartz EXPRESS TRICA Jan 09 [facility] [id number] [phone] CRYSTAL , PATIENT SCRIPTS RE 2016 30 304 TRISHA RX [place] MEDICARE MEDICARE PART Jan 09, PART A [id number] CRYSTAL, PATIENT (WNR) (M) A 2017 30A 1213 [facility] MEDICARE MEDICARE PART Jan 09, PART B [id number] 800 [id number] CRYSTAL, PATIENT (WNR) (M) B 2017 30A 1213 [facility] MEDICARE MEDICARE PART Jan 09, PART A [id number] 800 [id number] CRYSTAL, PATIENT (WNR) (M) A 2017 HN43 1213 [facility] MEDICARE MEDICARE PART Jan 09, PART B [id number] 800 [id number] CRYSTAL, PATIENT (WNR) (M) B 2017 HN43 1213 TRISHA -FO TRICA Jan 09, [place] [id number] [phone] NORMA SON, PATIENT R-LIFE RE-FO 2016 30 4 TRISHA R-LIF E -FO TRICA Jan 09, TFL [id number] [phone] NORMA SON, PATIENT R-LIFE WNR RE 2016 30 404 [facility] Selected Encounter This section includes the information on record at [place] for the Encounter. Date/Time Encounter Type Encounter Description Reason Provider Source Jan 16, 2021 11:14 Outpatient Encounter TELEPHONE TRIAGE AM IHE Encounter [...] 08:00 AM AMBULATORY - NONE PAT ENRIQUEZ [facility] Social History: Smoking Status (Most current) [...] AM QUIT TOBACCO >7 YEARS AGO [facility] Tobacco Use History This section includes a history of the smoking, or tobacco- related health factors, that were collected on or before the date of the Encounter. The data comes from the [place] facility where the Encounter took place. Date/Time Smoking Status/Tobacco Use Comment Facil it Sep 17, 2006 10:16 AM TOBACCO OFFERRED STOP SMOKING PAT GODFREY [facility] Mar 05, 1998 02:10 PM TOBACCO PRODUCTS USER (NO) [facility] Advance Directives: All historical and current [...] 28, 2018 ADVANCE DIRECTIVE MAXIMUS DE LEÓN AlvaradoDeidre GODFREY [facility] Encounter Notes: All associated encounter notes This section contains the clinical notes associated to the Encounter. Date/Time Encounter Note(s) Provider Source Jan 16, 2021 11:14 PRIMARY CARE MEDICATION MGT NOTE: RON PENDLETON [facility] LOCAL TITLE: MEDICATION RENEWAL REQUEST J CLINIC STANDARD TITLE: PRIMARY CARE MEDICATION MGT NOTE DATE OF NOTE: JAN 16, 2021@11:14 ENTRY DATE: JAN 16, 2021@11:14:54 AUTHOR: DARRYL PENDLETON EXP COSIGNER: URGENCY: STATUS: COMPLETED Pharmacy has received a refill request that cinthia ot be processed unless acted upon by the prescriber. Please expedite an assessment for concurrence, and if appropriate, generate a [facility] medication order for the following: CARBOXYMETHYLCELLULOSE 0.5% SODIUM SOLN,OPH 0.5% INSTILL 1 DROP IN EACH EYE THREE TIMES A DAY FOR DRY EYE Quantity: 15 Refills: 11 If you do not concur with the patient's request to refill this medication, please communicate your decision directly to the patient. /nat/ Darryl Pendleton CPhT Air Shovel Operator Signed: 01/16/2021 11:15 Receipt Acknowledged By: * AWAITING SIGNATURE * JUAN ANDREWS * AWAITING SIGNATURE * EDDY ZURITA * AWAITING SIGNATURE * RENNY LEBLANC
--- OUTSIDE RECORDS SUMMARY | 2021-11-10 08:03 | External Medical Summary | Encounter Summary ---
:1950 Author Organization Department of [facility] Address [address] [place] [address] Care Team Providers Name Role Phone JUAN [...] [facility] [id number] [phone] CRYSTAL , PATIENT SCRIPTS RE 2016 30 304 TR[facility] RX [place]OD[place] MEDICARE MEDICARE PART Jan 09, PART A [id number] [id number] CRYSTAL, PATIENT (WNR) (M) A 2017 30A 1213 [place] MEDICARE MEDICARE PART Jan 09, PART B [id number] [id number] CRYSTAL, PATIENT (WNR) (M) B 2017 30A 1213 [facility] MEDICARE MEDICARE PART Jan 09, PART A [id number] [id number] CRYSTAL, PATIENT (WNR) (M) A 2017 HN43 1213 [place] MEDICARE MEDICARE PART Jan 09, PART B [id number] 800 [id number] CRYSTAL, PATIENT (WNR) (M) B 2017 HN43 1213 TRISHA -FO TRICA Jan 09, T[place] [id number] [phone] NORMA SON, PATIENT R-LIFE RE-FO 2016 30 4 TRISHA R-LIF E -FO TRICA Jan 09, TFL [id number] [phone] NORMA SON, PATIENT R-LIFE WNR RE 2016 30 404 [facility] Selected Encounter This section includes the information on record at [place] for the Encounter. Date/Time Encounter Type Encounter Description Reason Provider Source Dec 12, 2020 12:00 Outpatient Encounter COMMUNITY CARE PM CONSULT IHE Encounter Template Text not used by [place] Plan of Treatment: Future Appointments (+ 6 months) and Future Tests (+/- 45 days) The Plan of Treatment section includes future care activities for the patient from all [place] treatmentfacilities. This section includes future appointments and future orders which are active, pending orscheduled.Future Appointments This section includes appointments that were scheduled to occur 6 months from the date of the Encounter, up to a maximum of 20 appointments. The data comes from all [place] treatment facilities. Appointment Date/Time Appointment Type Appointment Facili ty Name Feb 04, 2021 08:00 AM AMBULATORY - NONE PAT ENRIQUEZ [facility] Social History: Smoking Status (Most current) and Tobacco Use (All prior to encounter date) This section includes the most current, and the historical, smoking and tobacco-related health factors from the [place] facility where the Encounter took place.Current Smoking Status This section includes the most current smoking, or tobacco-related health factor, from the [place] facility where the Encounter took place. Date/Time Current Smoking Status Comment Facility Sep 17, 2006 10:16 AM QUIT TOBACCO >7 YEARS AGO [facility] Tobacco Use History This section includes a history of the smoking, or tobacco- related health factors, that were collected on or before the date of the Encounter. The data comes from the [place] facility where the Encounter took place. Date/Time Smoking Status/Tobacco Use Comment [facility] Sep 17, 2006 10:16 AM TOBACCO OFFERRED STOP SMOKING PAT [facility] Mar 05, 1998 02:10 PM TOBACCO PRODUCTS USER (NO) [facility] Advance Directives: All historical and current Section Date Range: From patient's date of to the date document was created. This section includes ALL of a patient's completed or amended VA Advance and Rescinded Directives. The entries below indicate that a directive exists for the patient, but an actual copy is not included with this document. The data comes from all [place] facilities. Date Advance Directives Provider Source Apr 28, 2018 ADVANCE DIRECTIVE MAXIMUS DE LEÓN [facility] Encounter Notes: All associated encounter notes This section contains the clinical notes associated to the Encounter. Date/Time Encounter Note(s) Provider Source Dec 12, 2020 12:00 PM NONVA CONSULT: HOLLAND REED LOCAL TITLE: COMMUNITY CARE-CONSULT RESULT NOTE [facility] STANDARD TITLE: NONVA CONSULT DATE OF NOTE: DEC 12, 2020@12:00 ENTRY DATE: FEB 03, 2021@03:36:24 AUTHOR: HOLLAND REED EXP COSIGNER: URGENCY: STATUS: COMPLETED The following Non VA Care consult has been compl eted. See scanned document for report. NON VA Care Consult Results [facility] PROGRESS NOTE JOHN HERNANDEZ MD DOS: 12/12/2020 /nat/ HOLLAND REED Signed: 02/03/2021 03:37
--- OUTSIDE RECORDS SUMMARY | 2021-11-10 08:03 | External Medical Summary | Encounter Summary ---
:1950 Author Organization Department of [facility] Address [address] [place] [address] Care Team Providers Name Role Phone JUAN [...] Jan 09 [facility] [id number] [phone] CRYSTAL , PATIENT SCRIPTS RE 2016 30 304 TR[facility]HA RX DODA MEDICARE MEDICARE PART Jan 09, PART A [id number] CRYSTAL, PATIENT (WNR) (M) A 2017 30A 1213 [facility] MEDICARE MEDICARE PART Jan 09, PART B [id number] 800 [id number] CRYSTAL, PATIENT (WNR) (M) B 2017 30A 1213 [facility] MEDICARE MEDICARE PART Jan 09, PART A [id number] 800 [id number] CRYSTAL, PATIENT (WNR) (M) A 2017 HN43 1213 [facility] MEDICARE MEDICARE PART Jan 09, PART B [id number] 800 [id number] CRYSTAL, PATIENT (WNR) (M) B 2017 HN43 1213 TRISHA -FO TRICA Jan 09, TFL [id number] [phone] NORMA SON, PATIENT R-LIFE RE-FO 2016 30 4 TRISHA R-LIF E -FO TRICA Jan 09, TFL [id number] [phone] NORMA SON, PATIENT R-LIFE WNR RE 2016 30 404 [facility] Selected Encounter This section includes the information on record at [place] for the Encounter. Date/Time Encounter Type Encounter Reason Provider Source Description December 03, 2020 HC PRO PHONE TELEPHONE/MEDICIN ICD-10-CM G47.33 SARWAT KEE 03:02 PM CALL 5-10 MIN E Obstructive sleep apnea (adult) (pediatric) with Provider Comments: Obstructive sleep apnea syndrome ([facility] [id number]) IHE Encounter Template Text not used by [place] Assessments - Encounter Diagnoses This section includes the primary and secondary diagnoses documented for the Encounter. Date/Time Primary/Secondary Diagnosis Name Provider Source Diagnosis December 03, 2020 PRIMARY Obstructive sleep ANGLE KEE 03:02 PM apnea (adult) [facility] (pediatric) Plan of Treatment: Future Appointments (+ 6 months) and Future Tests (+/- 45 days) The Plan of Treatment section includes future care activities for the patient from all [place] treatmentfacilities. This section includes future appointments and future orders which are active, pending orscheduled.Future Appointments This section includes appointments that were scheduled to occur 6 months from the date of the Encounter, up to a maximum of 20 appointments. The data comes from all [place] treatment facilities. Appointment Date/Time Appointment Type Appointment Facili ty Name Feb 04, 2021 08:00 AM AMBULATORY - NONE PAT ENRIQUEZ [facility] Surgical Procedures: All associated to the encounter This section includes all Surgical Procedures and Surgical Procedure Notes associated to the Encounter.Surgical Procedures This section includes all Surgical Procedures associated to the Encounter.Surgical Procedure Date/Time Procedure Procedure Type Procedure Provider Source Qualifiers December 03, 2020 PHONE CALL BY [employer] PRO PHONE ANGLE KEE 03:02 PM PROF 5-10 [facility] Surgical Notes There are no notes associat ed with this procedure. Social History: Smoking Status (Most current) and Tobacco Use (All prior to encounter date) This section includes the most current, and the historical, smoking and tobacco-related health factors from the [place] facility where the Encounter took place.Current Smoking Status This section includes the most current smoking, or tobacco-related health factor, from the [place] facility where the Encounter took place. Date/Time Current Smoking Status Comment Facility Sep 17, 2006 10:16 AM QUIT TOBACCO >7 YEARS AGO PAT GODFREY [facility] Tobacco Use History This section includes a history of the smoking, or tobacco- related health factors, that were collected on or before the date of the Encounter. The data comes from the [place] facility where the Encounter took place. Date/Time Smoking Status/Tobacco Use Comment [facility] it Sep 17, 2006 10:16 AM TOBACCO OFFERRED STOP SMOKING PAT GODFREY [facility] Mar 05, 1998 02:10 PM TOBACCO PRODUCTS USER (NO) PAT GODFREY [facility] Advance Directives: All historical and current Section Date Range: From patient's date of to the date document was created. This section includes ALL of a patient's completed or amended [place] Advance and Rescinded Directives. The entries below indicate that a directive exists for the patient, but an actual copy is not included with this document. The data comes from all [place] facilities. Date Advance Directives Provider Source Apr 28, 2018 ADVANCE DIRECTIVE MAXIMUS DE LEÓN [facility] Encounter Notes: All associated encounter notes This section contains the clinical notes associated to the Encounter. Date/Time Encounter Note(s) Provider Source December 03, 2020 03:02 PM RESPIRATORY THERAPY EDUCATION NOTE: ANGLE KEE LOCAL TITLE: RESPIRATORY SUPPLIES [facility] STANDARD TITLE: RESPIRATORY THERAPY EDUCATION NO TE DATE OF NOTE: DECEMBER 03, 2020@15:02 ENTRY DATE: DECEMBER 03, 2020@15:03:02 AUTHOR: ANGLE KEE EXP COSIGNER: URGENCY: STATUS: COMPLETED [employer] standard mask sent via [facility]. /nat/ ANGLE KEE PRODUCTION LINE ASSEMBLER Signed: 12/03/2020 15:03
--- OUTSIDE RECORDS SUMMARY | 2021-11-10 08:03 | External Medical Summary | Encounter Summary ---
:1950 Author Organization Department of [facility] Address [address] [place] [address] Care Team Providers Name Role Phone JUAN [...] [facility] Number [id number] [phone] CRYSTAL , PATIENT SCRIPTS RE 2016 30 304 TR[facility] RX [place] MEDICARE MEDICARE PART Jan 09, PART A [id number] CRYSTAL, PATIENT (WNR) (M) A 2017 30A 1213 [facility] MEDICARE MEDICARE PART Jan 09, PART B [id number] 800 772 CRYSTAL, PATIENT (WNR) (M) B 2017 30A 1213 [facility] MEDICARE MEDICARE PART Jan 09, PART A [id number] 800 772 CRYSTAL, PATIENT (WNR) (M) A 2017 HN43 1213 [facility] MEDICARE MEDICARE PART Jan 09, PART B [id number] 800 [id number] CRYSTAL, PATIENT (WNR) (M) B 2017 HN43 1213 TRISHA -FO TRICA Jan 09, TFL [id number] [phone] NORMA SON, PATIENT R-LIFE RE-FO 2016 30 4 TRISHA R-LIF E -FO TRICA Jan 09, TFL [id number] [phone] NORMA SON, PATIENT R-LIFE WNR RE 2016 30 404 [facility] Selected Encounter This section includes the information on record at [place] for the Encounter. Date/Time Encounter Type Encounter Description Reason Provider Source Dec 12, 2020 09:00 Outpatient Encounter [facility] CONSULT IHE Encounter Template Text not used by [place] Plan of Treatment: Future Appointments (+ 6 months) and Future Tests (+/- 45 days) The Plan of Treatment section includes future care activities for the patient from all [place] treatmentfacilities. This section includes future appointments and future orders which are active, pending orscheduled.Future Appointments This section includes appointments that were scheduled to occur 6 months from the date of the Encounter, up to a maximum of 20 appointments. The data comes from all [place] treatment facilities. Appointment Date/Time Appointment Type Appointment Facili ty Name Feb 04, 2021 08:00 AM AMBULATORY - NONE PAT ENRIQUEZ [facility] Social History: Smoking Status (Most current) and Tobacco Use (All prior to encounter date) This section includes the most current, and the historical, smoking and tobacco-related health factors from the [place] facility where the Encounter took place.Current Smoking Status This section includes the most current smoking, or tobacco-related health factor, from the [place] facility where the Encounter took place. Date/Time Current Smoking Status Comment Facility Sep 17, 2006 10:16 AM QUIT [facility]ACCO [facility] Use History This section includes a history of the smoking, or tobacco- related health factors, that were collected on or before the date of the Encounter. The data comes from the [place] facility where the Encounter took place. Date/Time Smoking Status/Tobacco Use Comment [facility] Sep 17, 2006 10:16 AM TOBACCO OFFERRED STOP SMOKING PAT GODFREY [facility] Mar 05, 1998 02:10 PM TOBACCO PRODUCTS USER (NO) [facility] Advance Directives: All historical and current Section Date Range: From patient's date of to the date document was created. This section includes ALL of a patient's completed or amended [place] Advance and Rescinded Directives. The entries below indicate that a directive exists for the patient, but an actual copy is not included with this document. The data comes from all [place] facilities. Date Advance Directives Provider Source Apr 28, 2018 ADVANCE DIRECTIVE MAXIMUS DE LEÓN [facility] Encounter Notes: All associated encounter notes This section contains the clinical notes associated to the Encounter. Date/Time Encounter Note(s) Provider Source Dec 12, 2020 09:00 AM NONVA CONSULT: MAXIMUS DE LEÓN LOCAL TITLE: COMMUNITY CARE-CONSULT RESULT NOTE [facility] STANDARD TITLE: NONVA CONSULT DATE OF NOTE: DEC 12, 2020@09:00 ENTRY DATE: DEC 17, 2020@08:40:46 AUTHOR: MAXIMUS DE LEÓN EXP COSIGNER: URGENCY: STATUS: COMPLETED The following Non VA Care consult has be en completed. See scanned document for report. NON VA Care Consult Results Cardiology Comment: General Cardiology /nat/ MAXIMUS DE LEÓN AGENCY TRAINER Signed: 12/17/2020 08:41 Oct 14, 2020 09:00 AM NONVA CONSULT: MAXIMUS DE LEÓN LOCAL TITLE: COMMUNITY CARE-CONSULT RESULT NOTE [facility] STANDARD TITLE: NONVA CONSULT DATE OF NOTE: OCT 14, 2020@09:00 ENTRY DATE: DEC 17, 2020@08:44:12 AUTHOR: MAXIMUS DE LEÓN EXP COSIGNER: URGENCY: STATUS: COMPLETED The following Non VA Care consult has be en completed. See scanned document for report. NON VA Care Consult Results Cardiology Comment: Echo /nat/ MAXIMUS DE LEÓN AGENCY TRAINER Signed: 12/17/2020 08:44
--- OUTSIDE RECORDS SUMMARY | 2021-11-10 08:04 | External Medical Summary | Encounter Summary ---
:1950 Author Organization Department of [facility] Address [address] [place] [address] Care Team Providers Name Role Phone JUAN [...] Policy Number Swartz EXPRESS [facility] [id number] [phone] CRYSTAL , PATIENT SCRIPTS RE 2016 30 304 TRISHA RX DODA MEDICARE MEDICARE PART Jan 09, PART A [id number] CRYSTAL, PATIENT (WNR) (M) A 2017 30A 1213 TRISHA MEDICARE MEDICARE PART Jan 09, PART B [id number] 800 [id number] CRYSTAL, PATIENT (WNR) (M) B 2017 30A 1213 TRISHA MEDICARE MEDICARE PART Jan 09, PART A [id number] 800 [id number] CRYSTAL, PATIENT (WNR) (M) A 2017 HN43 1213 TRISHA MEDICARE MEDICARE PART Jan 09, PART B [id number] 800 [id number] CRYSTAL, PATIENT (WNR) (M) B 2017 [id number] TRISHA -FO TRICA Jan 09, TFL [id number] [phone] NORMA SON, PATIENT R-LIFE RE-FO 2016 30 4 TRISHA R-LIF E -FO TRICA Jan 09, TFL [id number] [phone] NORMA SON, PATIENT R-LIFE WNR RE 2016 30 404 TRISHA FOR LIFE Selected Encounter This section includes the information on record at [place] for the Encounter. Date/Time Encounter Type Encounter Description Reason Provider Source November 29, 2020 12:00 Outpatient Encounter COMMUNITY CARE PM CONSULT IHE Encounter Template Text not used by [place] Plan of Treatment: Future Appointments (+ 6 months) and Future Tests (+/- 45 days) The Plan of Treatment section includes future care activities for the patient from all [place] treatmentfacilities. This section includes future appointments and future orders which are active, pending orscheduled.Future Appointments This section includes appointments that were scheduled to occur 6 months from the date of the Encounter, up to a maximum of 20 appointments. The data comes from all [place] treatment facilities. Appointment Date/Time Appointment Type Appointment Facili ty Name Feb 04, 2021 08:00 AM AMBULATORY - NONE PAT ENRIQUEZ [facility] Social History: Smoking Status (Most current) and Tobacco Use (All prior to encounter date) This section includes the most current, and the historical, smoking and tobacco-related health factors from the [place] facility where the Encounter took place.Current Smoking Status This section includes the most current smoking, or tobacco-related health factor, from the [place] facility where the Encounter took place. Date/Time Current Smoking Status Comment Facility Sep 17, 2006 10:16 AM QUIT TOBACCO >7 YEARS AGO [facility] Tobacco Use History This section includes a history of the smoking, or tobacco- related health factors, that were collected on or before the date of the Encounter. The data comes from the [place] facility where the Encounter took place. Date/Time Smoking Status/Tobacco Use Comment [facility] Sep 17, 2006 10:16 AM TOBACCO OFFERRED STOP SMOKING PAT GODFREY [facility] Mar 05, 1998 02:10 PM TOBACCO PRODUCTS USER (NO) [facility] Advance Directives: All historical and current Section Date Range: From patient's date of to the date document was created. This section includes ALL of a patient's completed or amended [place] Advance and Rescinded Directives. The entries below indicate that a directive exists for the patient, but an actual copy is not included with this document. The data comes from all [place] facilities. Date Advance Directives Provider Source Apr 28, 2018 ADVANCE DIRECTIVE MAXIMUS DE LEÓN [facility] Encounter Notes: All associated encounter notes This section contains the clinical notes associated to the Encounter. Date/Time Encounter Note(s) Provider Source November 29, 2020 12:00 PM NONVA CONSULT: HUSSEIN JACKSON LOCAL TITLE: COMMUNITY CARE-CONSULT RESULT NOTE [facility] STANDARD TITLE: NONVA CONSULT DATE OF NOTE: NOVEMBER 29, 2020@12:00 ENTRY DATE: FEB 06, 2021@10:48:59 AUTHOR: HUSSEIN JACKSON EXP COSIGNER: URGENCY: STATUS: COMPLETED The following Non VA Care consult has been compl eted. See scanned document for report. NON VA Care Consult Results [facility] CARDIOLOGY JOHN HERNANDEZ MD DOS: 11/29/2020 /nat/ HUSSEIN JACKSON CONTRACT SCANNER-ISSU Signed: 02/06/2021 10:49
--- OUTSIDE RECORDS SUMMARY | 2021-11-10 08:04 | External Medical Summary | Encounter Summary ---
:1950 Author Organization Department [facility] Address [address] [place] [address] Care Team Providers Name Role Phone JUAN [...] Policy Number Swartz EXPRESS TRICA Jan 09 [facility] [id number] [phone] CRYSTAL , PATIENT SCRIPTS RE 2016 30 304 TRISHA RX DODA MEDICARE MEDICARE PART Jan 09, PART A [id number] CRYSTAL, PATIENT (WNR) (M) A 2017 30A 1213 TRISHA MEDICARE MEDICARE PART Jan 09, PART B [id number] [id number] CRYSTAL, PATIENT (WNR) (M) B 2017 30A 1213 TRISHA MEDICARE MEDICARE PART Jan 09, PART A [id number] [id number] CRYSTAL, PATIENT (WNR) (M) A 2017 HN43 1213 TRISHA MEDICARE MEDICARE PART Jan 09, PART B [id number] 800 [id number] CRYSTAL, PATIENT (WNR) (M) B 2017 HN43 1213 TRISHA -FO TRICA Jan 09, TFL [id number] [phone] NORMA SON, PATIENT R-LIFE RE-FO 2016 30 4 TRISHA R-LIF E -FO TRICA Jan 09, TFL [id number] [phone] NORMA SON, PATIENT R-LIFE WNR RE 2016 30 404 TRISHA [facility] Selected Encounter This section includes the information on record at [place] for the Encounter. Date/Time Encounter Type Encounter Description Reason Provider Source November 20, 2020 01:27 Outpatient Encounter PRIMARY CARE/MEDICINE PM IHE Encounter [...] Date/Time Appointment Type Appointment Facili ty Name November 29, 2020 09:00 AM AMBULATORY - NONE PAT ENRIQUEZ [facility] Feb 04, 2021 08:00 AM AMBULATORY - NONE PAT ENRIQUEZ [facility] Social History: Smoking Status (Most current) [...] AM QUIT TOBACCO >7 YEARS AGO [facility] Tobacco Use History This section includes a history of the smoking, or tobacco- related health factors, that were collected on or before the date of the Encounter. The data comes from the [place] facility where the Encounter took place. Date/Time Smoking Status/Tobacco Use Comment [facility] Sep 17, 2006 10:16 AM TOBACCO OFFERRED STOP SMOKING PAT GODFREY [facility] Mar 05, 1998 02:10 PM TOBACCO PRODUCTS USER (NO) PAT GODFREY [facility] Advance Directives: All historical and current Section [...] 28, 2018 ADVANCE DIRECTIVE MAXIMUS DE LEÓN [facility] Encounter Notes: All associated encounter notes This section contains the clinical notes associated to the Encounter. Date/Time Encounter Note(s) Provider Source November 20, 2020 01:27 PM NURSING ADMINISTRATIVE [facility] LOC[facility] TITLE: CO-MANAGED CARE FAX NOTE STANDARD TITLE: NURSING ADMINISTRATIVE NOTE DATE OF NOTE: NOVEMBER 20, 2020@13:27 ENTRY DATE: NOVEMBER 20, 2020@13:27:48 AUTHOR: EDDY ZURITA EXP COSIGNER: URGENCY: STATUS: COMPLETED Received prescription request from: [facility] Fax: For:ALENDRONATE (FOSAMAX) Si MG TABS, 1 TAB EVERY WEEK Qty:12 Refills:3 Notes attached? [XXXXXXX ]If no, request for chart notes sent to requesting provider. [ ]If yes, the chart notes and prescription are taken to PCP for their action. /nat/ EDDY ZURITA RN Signed: 11/20/2020 13:29 Receipt Acknowledged By: * AWAITING SIGNATURE * JACKIE ELLINGTON
--- OUTSIDE RECORDS SUMMARY | 2021-11-10 08:04 | External Medical Summary | Encounter Summary ---
:1950 Author Organization Department of [facility] Address [address] [place] [address] Care Team Providers Name Role Phone JUAN [...] Policy Number Swartz EXPRESS TRICA Jan [facility] [id number] [phone] CRYSTAL , PATIENT SCRIPTS RE 2016 30 304 TRISHA RX DODA MEDICARE MEDICARE PART Jan 09, PART A [id number] 800 [id number] CRYSTAL, PATIENT (WNR) (M) A 2017 30A 1213 TRISHA MEDICARE MEDICARE PART Jan 09, PART B [id number] 800 772 CRYSTAL, PATIENT (WNR) (M) B 2017 30A 1213 TRISHA MEDICARE MEDICARE PART Jan 09, PART A [id number] 800 [id number] CRYSTAL, PATIENT (WNR) (M) A 2017 HN43 1213 TRISHA MEDICARE MEDICARE PART Jan 09, PART B [id number] [id number] CRYSTAL, PATIENT (WNR) (M) B 2017 HN43 1213 TRISHA -FO TRICA Jan 09, T[place] [id number] [phone] NORMA SON, PATIENT R-LIFE RE-FO 2016 30 4 TRISHA R-LIF E -FO TRICA Jan 09, TFL [id number] [phone] NORMA SON, PATIENT R-LIFE WNR RE 2016 30 404 TRISHA [facility] LIFE Selected Encounter This section includes the information on record at [place] for the Encounter. Date/Time Encounter Type Encounter Reason Provider Source Description December 03, 2020 06:05 Outpatient SLEEP MEDICINE ANGLE KEE PM Encounter IHE Encounter Template Text not used by [place] Plan of Treatment: Future Appointments (+ 6 months) and Future Tests (+/- 45 days) The Plan of Treatment section includes future care activities for the patient from all [place] treatmentfacilities. This section includes future appointments and future orders which are active, pending orscheduled.Future Appointments This section includes appointments that were scheduled to occur 6 months from the date of the Encounter, up to a maximum of 20 appointments. The data comes from all [place] treatment facilities. Appointment Date/Time Appointment Type Appointment Facili ty Name Feb 04, 2021 08:00 AM AMBULATORY - NONE PAT ENRIQUEZ [facility] Social History: Smoking Status (Most current) and Tobacco Use (All prior to encounter date) This section includes the most current, and the historical, smoking and tobacco-related health factors from the [place] facility where the Encounter took place.Current Smoking Status This section includes the most current smoking, or tobacco-related health factor, from the [place] facility where the Encounter took place. Date/Time Current Smoking Status Comment Facility Sep 17, 2006 10:16 AM QUIT TOBACCO >7 YEARS AGO [facility] Tobacco Use History This section includes a history of the smoking, or tobacco- related health factors, that were collected on or before the date of the Encounter. The data comes from the [place] facility where the Encounter took place. Date/Time Smoking Status/Tobacco Use Comment [facility] Sep 17, 2006 10:16 AM TOBACCO OFFERRED STOP SMOKING PAT GODFREY [facility] Mar 05, 1998 02:10 PM TOBACCO PRODUCTS USER (NO) [facility] Advance Directives: All historical and current Section Date Range: From patient's date of to the date document was created. This section includes ALL of a patient's completed or amended [place] Advance and Rescinded Directives. The entries below indicate that a directive exists for the patient, but an actual copy is not included with this document. The data comes from all [place] facilities. Date Advance Directives Provider Source Apr 28, 2018 ADVANCE DIRECTIVE SARTHAKMAXIMUS Zaida GODFREY [facility] Encounter Notes: All associated encounter notes This section contains the clinical notes associated to the Encounter. Date/Time Encounter Note(s) Provider Source December 03, 2020 06:05 PM SLEEP MEDICINE SECURE MESSAGING: RENATO KEE LOCAL TITLE: SLEEP MEDICINE SECURE MESSAGING [facility] STANDARD TITLE: SLEEP MEDICINE SECURE MESSAGING DATE OF NOTE: DECEMBER 03, 2020@18:05:09 ENTRY DATE: DECEMBER 03, 2020@15:05:09 AUTHOR: ANGLE KEE EXP COSIGNER: URGENCY: STATUS: COMPLETED ------Original Message Sent: 12/03/2020 05:52 PM From: TRISHA ROJAS To: SLEEP LAB & PULMONARY_[facility]@ Subject: Replacement Mirage FX Nasal Mask Please send replacement Replacement Mirage FX Na nanette Mask for my CPAP. As always, thank you for your expedient support. ------Original Message Sent: 12/03/2020 06:05 PM From: ANGLE KEE To: TRISHA ROJAS Subject: Replacement Mirage FX Nasal Mask I ordered your mask. Have a good day! /nat/ ANGLE KEE RRT Signed: 12/03/2020 15:05
--- OUTSIDE RECORDS SUMMARY | 2021-11-10 08:05 | External Medical Summary | Encounter Summary ---
:1950 Author Organization Department of [facility] Address [address] [place] [address] Care Team Providers Name Role Phone JUAN [...] Policy Number Swartz EXPRESS TRICA Jan 09 [facility] [id number] [phone] CRYSTAL , PATIENT SCRIPTS RE 2016 30 304 TRISHA RX DODA MEDICARE MEDICARE PART Jan 09, PART A [id number] 800 [id number] CRYSTAL, PATIENT (WNR) (M) A 2017 30A 1213 TRISHA MEDICARE MEDICARE PART Jan 09, PART B [id number] 800 772 CRYSTAL, PATIENT (WNR) (M) B 2017 30A 1213 TRISHA MEDICARE MEDICARE PART Jan 09, PART A [id number] 800 772 CRYSTAL, PATIENT (WNR) (M) A 2017 HN43 1213 TRISHA MEDICARE MEDICARE PART Jan 09, PART B [id number] 800 [id number] CRYSTAL, PATIENT (WNR) (M) B 2017 HN43 1213 TRISHA -FO TRICA Jan 09, TFL [id number] [phone] NORMA SON, PATIENT R-LIFE RE-FO 2016 30 4 TRISHA R-LIF E -FO TRICA Jan 09, TFL [id number] [phone] NORMA SON, PATIENT R-LIFE WNR RE 2016 30 404 TRISHA FOR LIFE Selected Encounter This section includes the information on record at [place] for the Encounter. Date/Time Encounter Type Encounter Description Reason Provider Source November 15, 2020 10:29 Outpatient Encounter [facility] CONSULT IHE Encounter Template Text not used by [place] Plan of Treatment: Future Appointments (+ 6 months) and Future Tests (+/- 45 days) The Plan of Treatment section includes future care activities for the patient from all [place] treatmentfacilities. This section includes future appointments and future orders which are active, pending orscheduled.Future Appointments This section includes appointments that were scheduled to occur 6 months from the date of the Encounter, up to a maximum of 20 appointments. The data comes from all [place] treatment facilities. Appointment Date/Time Appointment Type Appointment Facili ty Name November 29, 2020 09:00 AM AMBULATORY - NONE PAT ENRIQUEZ [facility] Feb 04, 2021 08:00 AM AMBULATORY - NONE PAT ENRIQUEZ [facility] Social History: Smoking Status (Most current) and Tobacco Use (All prior to encounter date) This section includes the most current, and the historical, smoking and tobacco-related health factors from the [place] facility where the Encounter took place.Current Smoking Status This section includes the most current smoking, or tobacco-related health factor, from the [place] facility where the Encounter took place. Date/Time Current Smoking Status Comment Facility Sep 17, 2006 10:16 AM QUIT TOBACCO >[facility] A[facility] Tobacco Use History This section includes a history of the smoking, or tobacco- related health factors, that were collected on or before the date of the Encounter. The data comes from the [place] facility where the Encounter took place. Date/Time Smoking Status/Tobacco Use Comment [facility] Sep 17, 2006 10:16 AM TOBACCO OFFERRED STOP SMOKING PAT GODFREY [facility] Mar 05, 1998 02:10 PM TOBACCO PRODUCTS USER (NO) PAT GODFREY [facility] Advance Directives: All historical and current Section Date Range: From patient's date of to the date document was created. This section includes ALL of a patient's completed or amended [place] Advance and Rescinded Directives. The entries below indicate that a directive exists for the patient, but an actual copy is not included with this document. The data comes from all [place] facilities. Date Advance Directives Provider Source Apr 28, 2018 ADVANCE DIRECTIVE MAXIMUS DE LEÓN [facility] Encounter Notes: All associated encounter notes This section contains the clinical notes associated to the Encounter. Date/Time Encounter Note(s) Provider Source November 15, 2020 10:29 AM ADMINISTRATIVE NOTE: SERENA MONAHAN LOCAL TITLE: TELEPHONE CONTACT CALL CENTER ADMI N [facility] STANDARD TITLE: ADMINISTRATIVE NOTE DATE OF NOTE: NOVEMBER 15, 2020@10:29:41 ENTRY DATE: NOVEMBER 15, 2020@10:32:04 AUTHOR: SERENA MONAHAN EXP COSIGNER: URGENCY: STATUS: COMPLETED TELEPHONE CONTACT CALL CENTER ADMIN Has ADD ENDA The following identifiers were used to verify th is patient: . SSN. The patient, TRISHA ROJAS ([id number] ) called the call center. Contact Type of call: V20 PACT MSG. Comments: Pt states they have a request for a DEXA scan an d requests a c/b with a time they can bring it to the clinic. Author: SERENA MONAHAN Evaluation/Management Code: HC PRO PHONE CALL 5- 10 MIN ([id number]). Starting at: 11/15/2020 @ 10:29:41 AM Ending at: 11/15/2020 @ 10:31:18 AM Length: 1 minutes. Caller Area: [address] Chief Complaint: Not applicable to call. Caller Response: V20 RETURN CALL Caller/[place] verbalize understanding; acknowle dges message. Patient's Email Address: [email or web address] Class Code: Other specified counseling. /nat/ Serena Monahan/[facility] Signed: 11/15/2020 10:32 Receipt Acknowledged By: 11/15/2020 11:50 /es/ JACKIE FOWLER 11/15/2020 ADDENDUM STATUS: COMPLETED SPOKE WITH HE HAS AN ORDER FROM MARISSA AT [facility] [place]. ADVISED HE CAN BRING IT TO THE CLINIC AND WE WILL MAKE SURE HIS PCP GETS IT. /nat/ JACKIE FOWLER Signed: 11/15/2020 11:51
--- OUTSIDE RECORDS SUMMARY | 2021-11-10 08:05 | External Medical Summary | Encounter Summary ---
:1950 Author Organization Department of [facility] Address [address] [place] [address] Care Team Providers Name Role Phone JUAN [...] Policy Number Swartz EXPRESS [facility] [id number] [phone] CRYSTAL , PATIENT SCRIPTS RE 2016 30 304 TRISHA RX DODA MEDICARE MEDICARE PART Jan 09, PART A [id number] 800 [id number] CRYSTAL, PATIENT (WNR) (M) A 2017 30A 1213 TRISHA MEDICARE MEDICARE PART Jan 09, PART B [id number] 800 772 CRYSTAL, PATIENT (WNR) (M) B 2017 30A 1213 TRISHA MEDICARE MEDICARE PART Jan 09, PART A [id number] 800 772 CRYSTAL, PATIENT (WNR) (M) A 2017 HN43 1213 TRISHA MEDICARE MEDICARE PART Jan 09, PART B [id number] 800 [id number] CRYSTAL, PATIENT (WNR) (M) B 2017 HN43 1213 TRISHA -FO TRICA Jan 09, TFL [id number] [phone] NORMA SON, PATIENT R-LIFE RE-FO 2016 30 4 TRISHA R-LIF E -FO TRICA Jan 09, TFL [id number] [phone] NORMA SON, PATIENT R-LIFE WNR RE 2016 30 404 TRISHA FOR LIFE Selected Encounter This section includes the information on [place] for the Encounter. Date/Time Encounter Type Encounter Description Reason Provider Source November 14, 2020 12:00 Outpatient Encounter COMMUNITY CARE PM CONSULT IHE Encounter Template Text not used by [place] Plan of Treatment: Future Appointments (+ 6 months) and Future Tests (+/- 45 days) The Plan of Treatment section includes future care activities for the patient from all [place] treatmentfacilities. This section includes future appointments and future orders which are active, pending orscheduled.Future Appointments This section includes appointments that were scheduled to occur 6 months from the date of the Encounter, up to a maximum of 20 appointments. The data comes from all [place] treatment facilities. Appointment Date/Time Appointment Type Appointment Facili ty Name November 29, 2020 09:00 AM AMBULATORY - NONE PAT ENRIQUEZ [facility] Feb 04, 2021 08:00 AM AMBULATORY - NONE PAT ENRIQUEZ [facility] Social History: Smoking Status (Most current) [...] QUIT TOBACCO >7 YEARS AGO [facility] Tobacco Use History This section includes a history of the smoking, or tobacco- related health factors, that were collected on or before the date of the Encounter. The data comes from the [place] facility where the Encounter took place. Date/Time Smoking Status/Tobacco Use Comment [facility] Sep 17, 2006 10:16 AM TOBACCO OFFERRED STOP SMOKING PAT GODFREY [facility] Mar 05, 1998 02:10 PM TOBACCO PRODUCTS USER (NO) PAT GODFREY [facility] Advance Directives: All historical and current [...] 28, 2018 ADVANCE DIRECTIVE MAXIMUS DE LEÓN [facility] Encounter Notes: All associated encounter notes This section contains the clinical notes associated to the Encounter. Date/Time Encounter Note(s) Provider Source November 14, 2020 12:00 PM NONVA REPORT: LEONEL COSTA LOCAL TITLE: NON-VA REPORT OTHER [facility] STANDARD TITLE: NONVA REPORT DATE OF NOTE: NOVEMBER 14, 2020@12:00 ENTRY DATE: FEB 03, 2021@18:28:17 AUTHOR: LEONEL COSTA EXP COSIGNER: URGENCY: STATUS: COMPLETED See scanned report in [employer]. NON VA Care Consult Results NAME [facility] FAC[facility] PHYSICIAN'S NAME-MATTHEW DUQUE DOS:11/14/20 See scanned report in [employer]. /nat/ LEONEL COSTA Signed: 02/03/2021 18:30
--- OUTSIDE RECORDS SUMMARY | 2021-11-10 08:05 | External Medical Summary ---
:1950 Author Care Team Providers Name Role Phone JUAN DARRYL KU Primary Care Provider [phone] BRI CASTREJON MD Internal Medicine [phone] TROY DARNELL MD Firer Helper [phone] Allergies Code Code System Name Reaction Severity Status Onset [id number] RxNorm Capacet Abdominal Pain Moderate Active Medications Name Status Start Date Stop Date alendronate 70 mg tablet Active Not foreign ilable Take 1 tablet every week by oral route in the morning. amoxicillin 500 mg capsule Completed 11/29 Take by oral route. atorvastatin 40 mg tablet Active Not av ailable Take 1 tablet every day by oral route in the evening. Calcium 600 + D(3) Active Not available 1 tablet each with breakfast & with dinner calcium carbonate 600 mg-vitamin D3 10 mcg (400 unit) tablet Act boaz Not available Take 1 tablet every day by oral route in the morning for 90 day s. cholecalciferol (vitamin D3) 50 mcg (2,000 unit) tablet Active Not available Take 1 tablet every day by oral route for 90 days. clindamycin 1 % topical gel Completed 11/10 desonide 0.05 % topical cream Completed DHEA 50 mg tablet Active Not available Take 2 tablets every day by oral route. Enbrel 25 mg (1 mL) subcutaneous powder for solution Active Not available etanercept 25 mg/0.5 mL (0.5 mL) subcutaneous syringe Active Not available Inject 50 mg as needed by subcutaneous route. fenofibrate micronized 145 mg tablet Active Not available Take 1 tablet every day by oral route in the evening. Fish Oil Completed 11/29/2020 1000mg daily Fish Oil 1,000 mg (120 mg-180 mg) capsule Active Not available Take 1 capsule every day by oral route in the evening. folic acid Completed 11/29/2020 1mg daily folic acid 1 mg tablet Active Not avail able glucosamine 750 [id number] no1 625 mg-C 30 mg-shira 1 mg tablet Active Not available Take 1 tablet twice a day by oral route. hydrochlorothiazide 25 mg tablet Active Not available hydrocodone 5 mg-acetaminophen 325 mg tablet Completed 12/25/2020 Take 1 tablet every day by oral route in the morning for 2 days . hydrocodone 7.5 mg-acetaminophen 325 mg tablet Completed 11/29/2020 leflunomide 20 mg tablet Active Not foreign ilable Take 1 tablet every day by oral route in the evening. lisinopril 10 mg tablet Active Not avai lable meclizine 25 mg tablet Completed methocarbamol 750 mg tablet Active Not available Take 1 tablet 3 times a day by oral route as needed. methotrexate sodium 2.5 mg tablet Active Not available Take 8 tablets once a week on Wednesday evening methylprednisolone 4 mg tablets in a dose pack Completed 11/29/2020 metoprolol succinate ER 25 mg tablet,extended release 24 hr Acti ve Not available Take 0.5 tablets every day by oral route in the evening. multivitamin Active Not available 2 tablets in the am and 2 tablets in the pm naproxen 250 mg tablet Active Not avail able Take 2 tablets every day at breakfast and 2 tablets at dinner nitroglycerin 0.4 mg sublingual tablet Active Not available Place by sublingual route. omeprazole 20 mg capsule,delayed release Active Not available Take 1 capsule every day by oral route. Periogard 0.12 % mouthwash Active Not a vailable Refresh Tears 0.5 % eye drops Active No t available tamsulosin 0.4 mg capsule Active Not av ailable Take 1 capsule every day by oral route in the evening. Tricor 145 mg tablet Completed 12/25/2020 Problems Name Status Onset Date Source Hyperlipidemia Active 11/29/2020 Obese Active 11/29/2020 Hypertensive Disorder Active 11/29/2020 Chest Pain Active 11/29/2020 Procedures Date Name Performed by 12/12/2020 Left Heart Catheterization (Surg) Inform ation not available Appendectomy Information not avai lable 12/25/2020 Electrocardiogram [facility] [address] [place] [address], [place] [phone] (Work [address]) Results Lab Results Date Name Specimen Result Interpretation Description Value Range Status Address 12/10/2020 CBC W/ Auto Diff No observation recorded. 12/10/2020 BMP, Serum or Plasma No observation recor ded. Past Encounters 12/25/2020 Hypertensive Disorder; Hyperlipidemia Iris Robles APARTMENT COORDINATOR: [address] [place] [address], [place] [phone], Ph. 11/29/2020 Cardiovascular Stress Test Abnormal; [place] st Pain; Essential Hypertension; Mixed Hyperlipidemia Troy Darnell MD: [address] [place] [address], [place] [phone], Ph. Social History Tobacco Smoking Status Never Smoker Vaccine List None recorded. Plan of Care Reminders Provider Appointments None recorded. Lab None recorded. Referral None recorded. Procedures None recorded. Surgeries None recorded. Imaging None recorded. Vitals 12/25/2020 10:00AM CARDIO-ESTABLISHED PATIENT Height Weight BMI Blood Pressure 5 ft 9 in 258.8 lbs 38.2 kg/m2 130/92 mm[Hg] 11/29/2020 09:15AM CARDIO- NEW PATIENT Height Weight BMI Blood Pressure 5 ft 9 in 264.4 lbs 39 kg/m2 118/80 mm[Hg]
--- OUTSIDE RECORDS SUMMARY | 2021-11-10 08:06 | External Medical Summary | Continuity of Care Document ---
:1950 Author Allergies, Adverse Reactions, Alerts Substance Reaction Status Capsaicin Active Medications Start Date End Date Medication Signa 20210620 folic acid 1 mg oral tablet Take 1 tab(s) orally once a day (in the morn ing) 20210620 HydroCHLOROthiazide 25 mg oral T allie 1 tab(s) oral once a day tablet (in the morning) 20210620 lisinopril 10 mg oral tablet Arik e 1 tab(s) orally once a day (in the morn ing) 20210620 Naproxen 250 mg oral tablet Take 1-2 tab(s) oral 2 times a day 20210620 Omeprazole 20 mg oral delayed Ta ke 1 tab(s) oral 4 times a release tablet week; Wednesday, , Wednesday and 20210620 fenofibrate 145 mg oral tablet T allie 1 tab(s) orally once a day (in the even ing) 20210620 atorvastatin 40 mg oral tablet T allie 1 tab(s) orally once a day (in the even ing) 20210620 tamsulosin 0.4 mg oral capsule T allie 1 cap(s) orally once a day (in the even ing) 20210620 leflunomide 20 mg oral tablet Ta ke 1 tab(s) orally once a day (in the even ing) 20210620 Metoprolol Succinate ER 25 mg or al Take 1/2 tab(s) oral once a tablet, extended release day (in the evening) 20210620 etanercept 50 mg/mL Subcutaneous Inject 50 milligrams solution subcutaneously o nce a week; Wednesday evening 20210620 Methotrexate 2.5 mg oral tablet Take 8 tab(s) orally once a once a week 2.5 mg tablet week 20210620 alendronate 70 mg oral tablet Ta ke 1 tab(s) orally once a week; Wednesday mor 20210620 methocarbamol 750 mg oral tablet Take 2 tab(s) orally 3 times a day as needed for Cramping 02724538 DHEA 50 mg oral tablet Take 2 ta b(s) orally once a day (in the morn ing) 83864037 cholecalciferol 50 mcg oral tabl et Take 1 tab(s) orally once a day (in the morn ing) 20977339 Calcium 600+D 600 mg-5 mcg oral Take 1 tab(s) oral once a day tablet (in the morning) 72405268 Multivitamin Multiple Vitamins T allie 2 tab(s) oral 2 times a oral tablet day 14471233 Chondroitin-Glucosamine 750 mg T allie 1 tab(s) orally 2 times oral tablet 750 mg tablet a day 60910259 [place]-3 1000 mg oral capsule Arik e 1 cap(s) orally once a day (in the even ing) Problems Type Code Description Effective Effective End Onset/Exac erbation Start Date Primary S72.21XD Displ subtrochnt 20210619 [id number] fx r femur` subs for clos fx w routn heal Other L40.50 Arthropathic 20210619 07278760 psoriasis` unspecified Other 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 Other I10 Essential 42413538 29886155 (primary) hypertension Other K21.9 Gastro-esophageal 91494974 7641619 6 reflux disease without esophagitis Other E78.5 Hyperlipidemia` 48508606 [id number] unspecified Other 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
[2021-11-10] MEDS ORDERED: ACETAMINOPHEN 325 MG TABLET PO ONE (08:30)
[2021-11-10] MEDS ORDERED: SCOPOLAMINE 1 PATCH PATCH TOPICAL PRN (09:00)
[2021-11-10] MEDS ORDERED: IPRATROPIUM/ALBUTEROL 3 ML AMPUL.NEB NEB PRN ×2 (09:00→13:05)
[2021-11-10] MEDS ORDERED: PREGABALIN 75 MG CAPSULE PO ONE (09:15)
[2021-11-10] MEDS ORDERED: TRANEXAMIC ACID 1,000 MG/10 ML VIAL ONE (11:22)
[2021-11-10] MEDS ORDERED: GLYCOPYRROLATE 0.2 MG/ML VIAL IV ONE (11:22)
[2021-11-10] MEDS ORDERED: NEOSTIGMINE 1 MG/ML VIAL ONE (11:22)
[2021-11-10] MEDS ORDERED: PHENYLephrine 1 MG/10 ML SYRINGE (ANEST) ONE (11:22)
[2021-11-10] MEDS ORDERED: PROPOFOL 200 MG/20 ML VIAL IV ONE (11:22)
[2021-11-10] MEDS ORDERED: ePHEDrine 50 MG/5 ML SYRINGE (ANEST) IV ONE (11:22)
[2021-11-10] MEDS ORDERED: DEXAMETHASONE 4 MG/ML VIAL ONE (11:22)
[2021-11-10] MEDS ORDERED: LIDOCAINE HCL/PF 100 MG/5 ML SYRINGE IV ONE (11:22)
[2021-11-10] MEDS ORDERED: MAGNESIUM SULFATE 2 GM/50 ML BAG IV ONE (11:22)
[2021-11-10] MEDS ORDERED: ROPIVACAINE HCL/PF 20 ML VIAL IJ ONE (11:22)
[2021-11-10] MEDS ORDERED: KETAMINE 50 MG/ML Syringe (ANEST) IV ONE (11:22)
[2021-11-10] MEDS ORDERED: ROCURONIUM 10 MG/ML ML IV ONE (11:22)
[2021-11-10] MEDS ORDERED: ONDANSETRON 4 MG/2 ML VIAL ONE (11:22)
[2021-11-10] MEDS ORDERED: LABETALOL 5 MG/ML ML IV PRN (13:05)
[2021-11-10] MEDS ORDERED: fentaNYL 100 MCG/2 ML VIAL IV PRN (13:05)
[2021-11-10] MEDS ORDERED: NALOXONE HCL 0.4 MG/ML VIAL IV PRN (13:05)
[2021-11-10] MEDS ORDERED: ATROPINE SULFATE 0.4 MG/ML VIAL IV PRN (13:05)
[2021-11-10] MEDS ORDERED: MEPERIDINE 25 MG/ML VIAL IV PRN (13:05)
[2021-11-10] MEDS ORDERED: ACETAMINOPHEN 1,000 MG/100 ML BAG IV ONE (13:05)
[2021-11-10] MEDS ORDERED: KETOROLAC 30 MG/ML VIAL IV PRN (13:05)
[2021-11-10] MEDS ORDERED: METHOCARBAMOL 1,000 MG/10 ML VIAL IV PRN (13:05)
[2021-11-10] MEDS ORDERED: METOCLOPRAMIDE 10 MG/2 ML VIAL IV PRN (13:05)
[2021-11-10] MEDS ORDERED: ONDANSETRON 4 MG/2 ML VIAL IV PRN (13:05)
[2021-11-10] MEDS ORDERED: LACTATED RINGERS 1,000 ML IV SCH (13:15)
[2021-11-10] MEDS ORDERED: ONDANSETRON 4 MG ODT TABLET SL PRN (13:51)
--- NOTE | 2021-11-10 13:51 | Brief Operative Note ---
Brief Operative Note Date of procedure: 11/10/21 Pre-op diagnosis: pseudoarthrosis Left hip Post-op diagnosis: same Procedure: revision of hardware and grafting Grafts/Implants: Yes Anesthesia: GETA Findings: pseudo Complications: none Complications Description: none Surgeon: Ted Jama Band Tier: Marv Oh Estimated blood loss (cc): 200 Specimens Removed/Pathology: none sent Condition: stable Disposition: PACU
[2021-11-10] MEDS ORDERED: oxyCODONE/APAP 5/325MG TABLET PO PRN (13:52)
[2021-11-10] MEDS ORDERED: METHOCARBAMOL 750 MG TABLET PO PRN (13:52)
--- NOTE | 2021-11-10 14:49 | XRay Report ---
CLINICAL INFORMATION: Postop subtrochanteric fracture. COMPARISON: Preoperative films 10/03/2021 FINDINGS: The oblique fracture, seen on the preoperative films five weeks prior, has been reduced to anatomic alignment and now supported by cerclage wires. Gamma nail transfixing an old intertrochanteric fracture is solidly unified and anatomically aligned. Moderate calcification in the common hamstring tendon at the ischial tuberosity insertions bilaterally seen as before. Mild degenerative change both hips with chondrocalcinosis in the femoral head cartilage appreciated. SI joints are normal. IMPRESSION: ORIF oblique subtrochanteric fracture right hip-anatomic alignment Interpreted and Authenticated by: Willard Beth 11/10/21
[2021-11-10] MEDS: 0.9 % SODIUM CHLORIDE 10 ML SYRINGE IV SCH ×2 (15:23→20:38)
--- NOTE | 2021-11-10 15:46 | XRay Report ---
CLINICAL INFORMATION: hip pinning COMPARISON: None. FINDINGS: Digital images were obtained during fluoroscopy in the OR. Total fluoroscopy time 0.6 minutes. Images show oblique subtrochanteric fracture of the proximal femur reduced to anatomic alignment and transfixed by a michelle and screws. Severe tibiofemoral degeneration noted. IMPRESSION: ORIF subtrochanteric fracture proximal right femur. Anatomic alignment Interpreted and Authenticated by: Willard Beth 11/10/21
[2021-11-10] MEDS: GLUCOSAMINE HCL 750 MG PO SCH (20:44)
[2021-11-10] MEDS ORDERED: ATORVASTATIN 40 MG TABLET PO SCH (21:00)
[2021-11-10] MEDS ORDERED: TAMSULOSIN 0.4 MG CAPSULE PO SCH (21:00)
[2021-11-10] MEDS: HYDROcodone/APAP 10/325MG TABLET PO PRN (21:47)
[2021-11-11] MEDS: HYDROcodone/APAP 10/325MG TABLET PO PRN ×3 (05:31→12:38)
[2021-11-11] MEDS: 0.9 % SODIUM CHLORIDE 10 ML SYRINGE IV SCH (05:32)
--- NOTE | 2021-11-11 07:40 | Orthopedic Progress Note ---
SUBJECTIVE Subjective Patient information: Note initiated : 11/11/21 at 7:38 am Service Date, if different from initiated Date: [] Patient: Mal Fiore 71 y/o M admitted on 11/10/21 for Right Hip Bone Grafting/Augmentation of Nonunion . Chief Complaint: [] Principal diagnosis: pseuoarthrosis Right femur Interval history: grafting Constitutional Vitals: Vital Signs Temp Pulse Resp BP Pulse Ox 97.3 F 87 16 128/73 95 11/11/21 04:00 11/11/21 04:00 11/11/21 04:00 11/11/21 04:00 11/11/21 04:00 Period Temp Pulse Resp BP Sys/Ayala Pulse Ox Last 24 Hr 97.0 F-97.9 F 65-90 - 99-128/57-75 93-99 Intake and Output 11/10/21 11/11/21 11/11/21 21:59 05:59 13:59 Intake Total 3050 200 Output Total 1875 1300 450 Balance 1175 -1100 -450 Weight 262 lb 1.6 oz Intake & Output: Intake & Output 11/10/21 11/11/21 11/11/21 21:59 05:59 13:59 Intake Total 3050 200 Output Total 1875 1300 450 Balance 1175 -1100 -450 Weight 262 lb 1.6 oz Intake: IV 100 Oral 1050 200 IV - Manual Only 1900 Output: Urine Catheter Amount 1200 450 Straight 1200 Void Amount 650 1300 Estimated Blood Loss 25 Other: Meal Dinner Percent of Meal Consumed 100% Feeding Ability Independent Urine Appearance Clear Clear Clear Urine Color Pale Pale Pale Urine Odor Normal Normal Neurological Exam Additional comments: neuro intact OBJ DATA Labs CBC & Chem 7: 11/03/21 10:01 11/03/21 10:01 Meds: Medications Hydrocodone Bitart/Acetaminophen (Hydrocodone/Apap 10/325mg Tablet) 1 - 2 tab PO Q4HP PRN; Protocol PRN Reason: Per Pain Protocol Last Admin: 11/11/21 05:31 Dose: 1 tab Documented by: Atorvastatin Calcium (Atorvastatin 40 Mg Tablet) 40 mg PO QHS [facility] Last Admin: 11/10/21 20:37 Dose: 40 mg Documented by: Calcium/Vitamin D (Calcium W/Vit D3 500 Mg Tablet) 1 mg PO QDAY [facility] Fenofibrate (Fenofibrate 43 Mg Capsule) 129 mg PO QDAY [facility] Fish Oil (Fish Oil 1,000 Mg Capsule) 1,000 mg PO QDAY [facility] Folic Acid (Folic Acid 1 Mg Tablet) 1 mg PO QDAY [facility] Hydrochlorothiazide (Hydrochlorothiazide 25 Mg Tablet) 25 mg PO QAM [facility] Iron Carb/Multivit/[place]/Folic Acid (Multivit,Ther Iron,Ca,Fa & Min 1 Tablet) 1 tab PO QDAY [facility] Leflunomide (Leflunomide 20 Mg Tablet) 20 mg PO QDAY [facility] Lisinopril (Lisinopril 10 Mg Tablet) 10 mg PO QDAY [facility] Methocarbamol (Methocarbamol 750 Mg Tablet) 750 mg PO Q8H PRN PRN Reason: Muscle Spasm Methotrexate (Methotrexate Sodium 2.5 Mg Tablet) 20 mg PO QWEEK [facility] Metoprolol Succinate (Metoprolol Succinate 25 Mg Tab.Xl.24h) 12.5 mg PO QDAY [facility] Omeprazole (Omeprazole 20 Mg Capsule) 20 mg PO QDAY [facility] Ondansetron HCl (Ondansetron 4 Mg Odt Tablet) 4 mg SL Q6HP PRN; Protocol PRN Reason: Nausea And Vomiting Oxycodone/Acetaminophen (Oxycodone/Apap 5/325mg Tablet) 1 - 2 tab PO Q4-6HP PRN; Protocol PRN Reason: Pain Certolizumab Pegol [ (Cimzia] 400 Mg/2 Ml) 200 dose SUB-Q Q2W [facility] Glucosamine Hcl 750 (Mg Tablet) 750 dose PO BID [facility] Last Admin: 11/10/21 20:44 Dose: Not Given Documented by: Prasterone (Dhea) 50 (Mg Tablet) 100 dose PO QDAY [facility] Sodium Chloride (0.9 % Sodium Chloride 10 Ml Syringe) 10 ml IV Q8 [facility] Last Admin: 11/11/21 05:32 Dose: 10 ml Documented by: Tamsulosin HCl (Tamsulosin 0.4 Mg Capsule) 0.4 mg PO QHS [facility] Last Admin: 11/10/21 20:37 Dose: 0.4 mg Documented by: Vitamin D (Vitamin D3 25 Mcg Tablet) 50 mcg PO DAILY [facility] A/P Narrative A/P Narrative: status post grafting - Plan of Treatment: mobilize with PT possible dc Time Spent With Patient Time: Total time spent is greater than 50% in coordination of care (as documented) at patient's floor/unit and/or counseling patient:
--- NOTE | 2021-11-11 07:42 | Discharge Summary ---
Discharge Provider Provider Patient information: Note initiated : 11/11/21 at 7:40 am Service Date, if different from initiated Date: [] Patient: Mal Fiore 71 y/o M admitted on 11/10/21 for Right Hip Bone Grafting/Augmentation of Nonunion . Chief Complaint: [] Date of admission: 11/10/21 07:34 Discharge date: 11/11/21 Primary care physician: Johanna Strong Admitting clinician: Ted Jama COURSE Hospital Course Hospital course: uneventful Discharge diagnosis: R hip pseudo Time Spent with Patient Time attestation: Total time spent providing and/or coordinating discharge services: Physical Examination Exam Weight bearing status: partial DC Instructions-General Patient Instructions Dressing Care: May shower in 2 days and Aquacel Ag - leave on for 5 days Discharge Plan Patient/Caregiver Discharge Instructions Activity: ambulate only with your walker Prescriptions: New hydrocodone-acetaminophen 10-325 mg Tablet 1 - 2 tab PO Q4HP PRN (Reason: Per Pain Protocol) Qty: 40 0RF Continued lisinopril 10 mg tablet 10 mg PO QDAY 0RF hydrochlorothiazide 25 mg tablet 25 mg PO QAM 0RF glucosamine HCl 750 mg tablet 750 mg PO BID 0RF cholecalciferol (vitamin D3) 2,000 unit capsule 2,000 unit PO DAILY 0RF fenofibrate nanocrystallized 145 mg tablet 145 mg PO QDAY 0RF omeprazole 20 mg capsule,delayed release(DR/EC) 20 mg PO QDAY 0RF Rx Instructions: Only takes four to five times weekly folic acid 1 mg tablet 1 mg PO QDAY Qty: 30 3RF methotrexate sodium 2.5 mg tablet 20 mg PO QWEEK 0RF tamsulosin 0.4 mg capsule 0.4 mg PO QHS 0RF metoprolol succinate 25 mg tablet extended release 24 hr 12.5 mg PO QDAY 0RF prasterone (dhea) 50 mg tablet 100 mg PO QDAY 0RF leflunomide 20 mg Tablet 20 mg PO QDAY 0RF methocarbamol 750 mg Tablet 750 mg PO Q8H PRN (Reason: Muscle Spasm) Qty: 40 0RF oxycodone-acetaminophen [Percocet] 5-325 mg Tablet 1 - 2 tab PO Q4-6HP PRN (Reason: Pain) Qty: 50 0RF atorvastatin 40 mg Tablet 40 mg PO QHS 0RF calcium carbonate-vitamin D3 600 mg-5 mcg (200 unit) Tablet 1 tab PO QDAY 0RF Cimzia 400 mg/2 mL (200 mg/mL x 2) Syringe Kit 200 mg SUBCUT Q2W 0RF Rx Instructions: administered on Wednesday evenings multivitamin Tablet 1 tab PO QDAY 0RF omega 3-qyo-nph-fish oil [Fish Oil] 1,000 mg (120 mg-180 mg) Capsule 1 cap PO QDAY 0RF Label Comments: PO qday, 4 days a week Rx Instructions: PO qday, 4 days a week Discontinued alendronate 70 mg tablet 70 mg PO QWEEK 0RF Rx Instructions: administered on Wednesday mornings naproxen 500 mg tablet 1,000 mg PO BID 0RF Follow Up Plan Follow up with: Ted Jama MD [Physician] - 11/25/21 10:20 am Plan of Treatment: mobilize with PT possible dc Pending Pending Pending: Resuscitation Status Limited Code Diet Regular Diet Start WedNov 10 1657 Hydrocodone Bitart/Acetaminophen (Hydrocodone/Apap 10/325mg Tablet) 1 - 2 tab PO Q4HP PRN; Protocol PRN Reason: Per Pain Protocol Last Admin: 11/11/21 05:31 Dose: 1 tab Documented by: Admin: 11/10/21 21:47 Dose: 1 tab Documented by: CUONG Atorvastatin Calcium (Atorvastatin 40 Mg Tablet) 40 mg PO QHS [facility] Last Admin: 11/10/21 20:37 Dose: 40 mg Documented by: CUONG Glucosamine Hcl 750 (Mg Tablet) 750 dose PO BID [facility] Last Admin: 11/10/21 20:44 Dose: Not Given Documented by: CUONG Sodium Chloride (0.9 % Sodium Chloride 10 Ml Syringe) 10 ml IV Q8 [facility] Last Admin: 11/11/21 05:32 Dose: 10 ml Documented by: Admin: 11/10/21 20:38 Dose: 10 ml Documented by: Admin: 11/10/21 15:23 Dose: 10 ml Documented by: ALFREDITO Tamsulosin HCl (Tamsulosin 0.4 Mg Capsule) 0.4 mg PO QHS [facility] Last Admin: 11/10/21 20:37 Dose: 0.4 mg Documented by: CUONG Shift Summary 11/11/21 03:04 Shift Summary by Lorenza Bui Primary Diagnosis: R hip graft Registration Status: Admit 11/10 Pertinent Medical Hx/Issue(s): Unknown Vital Signs with Trends: VSS on RA. Neuro/Mental Status: A&OX4. Ambulation status : Diet : Regular diet Lines/Tubes: R hand IV - SL Lab/Rad results: WNL Void / BM: Voiding per urinal Recommendations/questions for MD: Expected date of discharge: TBD Discharge Plan (needs, disposition, etc): to return home Initialized on 11/11/21 03:04 - END OF NOTE
--- NOTE | 2021-11-11 07:45 | Operative Note ---
DATE OF OPERATION: 11/10/2021 PREOPERATIVE DIAGNOSIS: Pseudarthrosis right femur fracture. POSTOPERATIVE DIAGNOSIS: Pseudarthrosis right femur fracture. OPERATION PROPOSED: 1. Exploration of a right femur fracture. 2. Removal of proximal interlocking screws with revision and grafting of pseudoarthrosis with aspiration iliac crest. OPERATION PERFORMED: Same. SURGEON: Ted Jama M.D. DISPATCHER RADIO: Marv Oh PA-C. This providers expertise and technical skill were required throughout the case. The PA assisted with preoperative coordination, intraoperative retraction, wound closure, and dressing and splint application, as well as postoperative documentation and care coordination. INDICATIONS: This is a gentleman who has had a proximal tibial fracture that was treated with intramedullary rodding. He appears to have been very slow in healing the fracture, and we elected to proceed with exploration of the fracture and curettage with grafting. DESCRIPTION OF PROCEDURE: Informed consent was obtained. He was taken to the operating room, provided with appropriate anesthetic and prophylactic antibiotics. He was carefully positioned. Lateral incision was made. We dissected down to expose the iliotibial band, which was split. The fascia of the vastus was split. We dissected posteriorly and then along the fascia and then up and over the femur with a Kathleen retractor. The fracture was explored and curetted and it was remarkably unstable with very little healing. We were able to essentially pull the fracture out to length. Extensive curettage of the fracture was performed. I did remove the proximal screws up into the femoral neck, which allowed manipulation of the proximal fragment and a more anatomic reduction. I placed two cerclage wires. I irrigated extensively. I then aspirated the iliac crest on the right for osteoprogenitor cells. This was applied to Osteocel bone graft and then this was packed into the fracture site. A lobster claw was used to reduce the fracture into a very near anatomic position and the cerclage wires were tightened. I placed the proximal screws in a more anterior position, which garnered new holes and a fairly reasonable purchase. Wounds were irrigated thoroughly and we closed the fascia of the vastus with a running 0 Vicryl. The iliotibial band was repaired and the skin was closed with 2-0 inverted deep dermal and abiodun. The procedure was tolerated well. No complications. ESTIMATED BLOOD LOSS: 100 mL. GDD:shira Job ID: [id number] Doc ID: [id number] eTd Jama MD
[2021-11-11] MEDS ORDERED: LISINOPRIL 10 MG TABLET PO SCH (09:00)
[2021-11-11] MEDS ORDERED: LEFLUNOMIDE 20 MG TABLET PO SCH (09:00)
[2021-11-11] MEDS ORDERED: FISH OIL 1,000 MG CAPSULE PO SCH (09:00)
[2021-11-11] MEDS ORDERED: FENOFIBRATE 43 MG CAPSULE PO SCH (09:00)
[2021-11-11] MEDS ORDERED: OMEPRAZOLE 20 MG CAPSULE PO SCH (09:00)
[2021-11-11] MEDS ORDERED: METOPROLOL SUCCINATE 25 MG TAB.XL.24H PO SCH (09:00)
[2021-11-11] MEDS ORDERED: CALCIUM W/VIT D3 500 MG TABLET PO SCH (09:00)
[2021-11-11] MEDS ORDERED: HYDROCHLOROTHIAZIDE 25 MG TABLET PO SCH (09:00)
[2021-11-11] MEDS ORDERED: VITAMIN D3 25 MCG TABLET PO SCH (09:00)
[2021-11-11] MEDS ORDERED: MULTIVIT,THER IRON,CA,FA & MIN 1 TABLET PO SCH (09:00)
[2021-11-11] MEDS ORDERED: FOLIC ACID 1 MG TABLET PO SCH (09:00)
[2021-11-11] MEDS: GLUCOSAMINE HCL 750 MG PO SCH (10:14)
[2021-11-17] MEDS ORDERED: METHOTREXATE SODIUM 2.5 MG TABLET PO SCH (09:00)
[2021-11-24] MEDS ORDERED: CERTOLIZUMAB PEGOL 400 MG/2 ML SUB-Q SCH (09:00)
== END 2021-11-11 12:30 | disposition home or self-care (01) | DRG 482 ==
LOC: MEDSUR 07:46 → EDSTATUS 11:00
PROVIDERS: ADMIT Orthopaedic Surgery Orthopaedic Surgery of the Spine; ATTEND Orthopaedic Surgery Orthopaedic Surgery of the Spine